=== PATIENT | female | born 1955 | race Two or more races ===

== ENCOUNTER 2024-09-30 21:23 | Emergency (ER) | payer MEDICARE, SELFPAY ==
--- NOTE | 2024-09-30 21:32 | PD.EDABDPN ---
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 Staff asked patient if she had abdominal pain and patient blinked her eyes to signify yes . Patient was intubated due to stroke. The first stroke caused left-sided paralysis and the second stroke caused paralysis to the rest of the body. Ibuprofen was given at 7 PM. No other concerns or complaints expressed at this time. Related Data Previous Rx's ?Medication ?Instructions ?Recorded ciprofloxacin HCl 500 mg tablet 500 mg feeding tube BID #20 tabs 10/01/24 (Cipro) metronidazole 500 mg tablet 500 mg feeding tube TID #21 tabs 10/01/24 Allergies Allergy/AdvReac Type Severity Reaction Status Date / Time codeine Allergy Mild Dizziness Verified 09/30/24 21:45 Review of Systems Review of Systems ROS Unobtainable: due to endotracheal tube Past Medical History Past Medical History NEUROLOGIC: Positive Paralysis Social History SMOKING STATUS: Never smoker HOUSING: [facility] LIVES WITH: Staff-Care Providers ED Exam Narrative Physical exam: GENERAL APPEARANCE: alert and oriented x 4, well-developed, well-nourished, no acute distress VITALS: All vitals were reviewed and the pulse ox is 99% on room air, which is normal according to my interpretation. HEENT: Normocephalic, atraumatic; pupils equal, round, reactive to light; EOMI; mucous membranes pink, moist; oropharynx clear NECK: Supple LUNGS: CTABL; no wheezes, no rales, no rhonchi HEART: Regular rate, regular rhythm; normal S1, S2; no murmurs ABDOMEN: non distended; increased active bowel sounds; soft, right abdominal tenderness and nausea, no guarding, no rebound; no masses, no organomegaly, no hernia BACK: no CVA tenderness EXTREMITIES: atraumatic; no edema NEUROLOGIC: awake; alert and oriented x4; cranial nerves II-XII grossly intact; no focal sensory or motor deficits PSYCHIATRIC: appropriate mood and affect SKIN: warm, dry, normal color; no rashes Course Course Course Narrative: CXR is ordered for determining the etiology of shortness of breath. Quality Measures none Orders Category Date Time Status CT Screening NOW Care 09/30/24 21:35 Completed Fire Boss NOW Care 09/30/24 21:34 Completed EKG (ED ONLY) *Do not use* NOW Care 09/30/24 21:34 Completed Lester [Urinary Catheter, Remove] ONCE Care 09/30/24 21:55 Completed Lester [Urinary Catheter] QS Care 09/30/24 21:56 Completed IV [Insert IV] NOW Care 09/30/24 21:[address] abdomen pelvis w con Stat Exams 09/30/24 21:35 Taken EKG (ED Only) Stat Exams 09/30/24 21:34 Ordered XR chest 1V portable Stat Exams 09/30/24 21:34 Completed B-Type Natriuretic Peptide Stat Lab 09/30/24 21:35 Completed CBC Stat Lab 09/30/24 21:35 Completed Comprehensive Metabolic Panel Stat Lab 09/30/24 21:35 Completed Lipase Stat Lab 09/30/24 21:35 Completed Magnesium Stat Lab 09/30/24 21:35 Completed Troponin I Stat Lab 09/30/24 21:35 Completed UA, C/S IF [Urinalysis, C/S if Indicated] Stat Lab 10/01/24 02:47 Completed Urine Culture Stat Lab 10/01/24 02:47 Received Morphine Inj Med 09/30/24 21:33 Discontinued 5 mg IVP X1 ONE Ondansetron Inj [Zofran Inj] Med 09/30/24 21:33 Discontinued 4 mg IVP X1 ONE Piper/Tazo 3.375 gm Premix [Zosyn] Med 10/01/24 03:11 Discontinued 3.375 gm in 50 ml IV X1 Volume Ventilator Stat RT 09/30/24 Active Vital Signs Vital signs: Vital Signs Temperature 98.7 F 09/30/24 21:34 Pulse Rate 98 09/30/24 21:34 Respiratory Rate 15 09/30/24 21:34 Blood Pressure 159/70 H 09/30/24 21:34 Pulse Oximetry (%) 98 09/30/24 21:34 Oxygen Delivery Method Mechanical Ventilation 09/30/24 21:34 Oxygen Flow Rate 400 09/30/24 21:34 Fraction of Inspired Oxygen 35 09/30/24 21:34 Abdominal Pain MDM MDM Narrative MDM Narrative:: Scribe Attestation: I, Sofie Zabala, am scribing for and in the presence of Dr. Brothers. Provider Notation: Although this document has been carefully reviewed, there may still be some phonetic and other typographical errors.? These errors are purely grammatical due to imperfections in the software program and should not be construed in any way to? compromise the substance of the patient's medical care during this visit. Patient data External records reviewed:: [facility] previous records (No prior ED records available for review.) and [facility] records Clinical information provided by:: spouse () Social determinants that could affect healthcare access:: housing (Sub-acute, Stroke) Patient has the following chronic illnesses:: Paralysis How is presenting disease/condition affected by chronic disease/condition?: exacerbated by Evaluation data The following diagnostics were reviewed and interpreted by me:: lab results, radiology exam(s) and EKG tracing(s) (EKG performed at 21:22, manual reading, my interpretation: sinus rhythm, rate: 99 bpm, diffused flattening of ST segments, no acute ischemic changes, interpreted as normal.) Lab and/or radiology exams considered but not ordered:: None Interpretation Summary: RADIOLOGY Chest X-Ray: Patient: TOMASZ LAURENT Record#: [id number] Birthdate: 1955 Age/Sex: 69 / F Location: [facility] Attending Dr: Ordering Physician: Kimber Brothers MD Date of Service: 09/30/24 Procedure(s): XR chest 1V portable Accession Number(s): [id number] cc: Jamarcus Wallace MD; Kimber Brothers MD~ Examination: AP chest single view Technique one AP portable semiupright chest single view Date and time: September 30, 2024 at 2158 hours INDICATIONS: Chest pain today. FINDINGS: Tracheostomy tube 4.3 cm above Tish Normal heart size No pneumonia Lung sutton are difficult to assess as the film is rotated RPO IMPRESSION: No pneumonia or pulmonary edema Dictated By: Jamarcus Wallace MD Signed By: <Electronically signed by Jamarcus Wallace MD in OV> 09/30/24 2224 Abdomen/Pelvis CT with Contrast: Pending official radiology report. Medications / Prescriptions Medications or Prescriptions considered but not ordered:: None Medication administrations:: Medication Administration History Discontinued Medications Piperacillin/Tazobactam/Dextrose (Zosyn) 3.375 gm in 50 mls @ 100 mls/hr IV X1 ONE Stop: 10/01/24 03:40 Last Infusion: 10/01/24 04:25 Dose: Infused Documented By: Admin: 10/01/24 03:45 Dose: 100 mls/hr Documented By: CVL Morphine Sulfate (Morphine Sulf Inj 10 Mg/Ml Vial) 5 mg IVP X1 ONE Stop: 09/30/24 21:34 Last Admin: 09/30/24 22:15 Dose: 5 mg Documented By: CVL Ondansetron HCl (Ondansetron Inj 2 Mg/Ml Inj 2 Ml) 4 mg IVP X1 ONE Stop: 09/30/24 21:34 Last Admin: 09/30/24 22:13 Dose: 4 mg Documented By: CVL See above if any Consultations Consultation(s) initiated? (list below): No Diagnosis Differential diagnosis abdominal pain: abdominal pain, acute appendicitis, constipation, diverticulitis, gastroenteritis, pancreatitis and small bowel obstruction Most likely diagnosis given after review of the tests above:: Abdominal pain, Pancolitis, Thickened endometrium Admission Indicated Admission indicated?: not indicated Explain why admission is indicated or not indicated:: Patient does not meet admission criteria. 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 Print Language: Malagasy Stand Alone Forms: Nessa Award Info., Patient Portal Info Letter
[2024-09-30 21:34] VITALS: BP 159/70; PULSE 98; RESP 15; TEMP 37.1; O2SAT 98
--- NOTE | 2024-09-30 21:35 | XR_ITS ---
Examination: CT abdomen with intravenous contrast CT pelvis with intravenous contrast 2-D coronal reconstructions 2-D sagittal reconstructions Date and time of exam:September 30, 2024, 11:46 PM INDICATIONS: Abdominal pain and distention today. CTDI: vol (mGy) 21.6 DLP: (mGycm) 1355 Technique: Multiple axial sections of the abdomen and pelvis have been obtained. 64 slice high-resolution scanner used. 3 mm axial sections have been obtained, post intravenous injection 60 cc [id number] 2-D sagittal, coronal reconstructions obtained. Low dose protocols were performed. One or more of the following dose reduction techniques were used; automated exposure control, adjustment of the mA and/or KV according to patient size, use of iterative reconstruction technique. Findings: Right lower lobe pneumonia 16 mm lesion lateral right lobe of the liver Absent gallbladder Enlarged common hepatic duct 21 mm No definite common bile duct stones No pancreatic mass No hydronephrosis Aorta is not enlarged Normal appendix No bowel obstruction Atrophic uterus with markedly thickened endometrial stripe Severe osteopenia Partially imaged at least 4 cm right breast lesion IMPRESSION: Partly imaged at least 4 cm right breast lesion, differential would include malignant neoplasm of the breast, recommend diagnostic mammography bilateral breast sonography follow-up Extrahepatic biliary tract dilatation, recommend hepatobiliary sonography follow-up Normal appendix Markedly abnormal thickened endometrial stripe, differential would include malignant neoplasm of the endometrium, recommend transvaginal transabdominal pelvic sonography follow-up 16 mm lesion lateral right lobe of the liver, recommend MRI abdomen liver follow up pre and postcontrast
[2024-09-30 21:53] LABS: Basophils % (Auto) 0 % (0-2.5); Eosinophils # (Auto) 0.1 Thou/mm3 (0.0-0.5); Eosinophils % (Auto) 1 % (0-10); Hematocrit 38.4 % (36.0-46.0); Hemoglobin 13.5 g/dL (12.0-16.0); Immature Granulocytes % (Auto) 1 % (0-0); Immature Granulocytes Auto 0.06 Thou/mm3 (0.00-0.00); Lymphocytes # (Auto) 2.6 Thou/mm3 (1.0-4.8); Lymphocytes % (Auto) 28 % (10-50); Mean Corpuscular HGB Conc 35.2 g/dl (31.0-37.0); Mean Corpuscular Volume 91 fL (80-100); Monocytes # (Auto) 0.5 Thou/mm3 (0.0-0.8); Monocytes % (Auto) 5 % (0-12); Neutrophils # (Auto) 6.1 Thou/mm3 (1.8-7.7); Neutrophils % (Auto) 65 % (37-80); Nucleated Red Blood Cell % 0 /100 WBC (0); Platelet Count 295 Thou/mm3 (140-440); RDW Standard Deviation 47.7 fL (36.4-46.3); Red Blood Count 4.22 Miln/mm3 (4.00-5.20); White Blood Count 9.3 Thou/mm3 (3.6-11.0)
[2024-09-30 21:55] VITALS: PULSE 99; RESP 22; O2SAT 100
[2024-09-30] MEDS: ONDANSETRON INJ 2 MG/ML INJ 2 ML 4 MG IVP (22:13)
[2024-09-30] MEDS: MORPHINE SULF INJ 10 MG/ML VIAL 5 MG IVP (22:15)
[2024-09-30 22:16] LABS: Alanine Aminotransferase 23 U/L (10-49); Albumin, Serum 4.4 gm/dL (3.4-4.8); Albumin/Globulin Ratio 1.8 (1.2-2.2); Alkaline Phosphatase 98 U/L (46-116); Anion Gap 8 (7-16); Aspartate Amino Transferase 24 U/L (0-34); BUN/Creatinine Ratio 30 Ratio (12-20); Bilirubin,Total 0.3 mg/dL (0.3-1.2); Blood Urea Nitrogen 18 mg/dL (9-23); Calcium 9.9 mg/dL (8.3-10.6); Calcium (Corrected) 9.9 mg/dL (8.5-10.1); Carbon Dioxide 31.6 mMol/L (20.0-31.0); Chloride 91 mMol/L (98-107); Creatinine (Component) 0.6 mg/dL (0.6-1.3); Globulin 2.4 gm/dL (2.3-3.5); Glucose 126 mg/dL (74-106); Lipase 22 U/L (12-53); Magnesium 2.2 mg/dL (1.6-2.6); Osmolality,Calculated 266 (275-295); Potassium 4.2 mMol/L (3.4-5.1); Sodium 131 mMol/L (136-145); Total Protein 6.8 gm/dL (5.7-8.2); Troponin I < 0.020 ng/mL (0.0-0.045); eGFR > 60 See Note
[2024-09-30 22:17] VITALS: BP 165/59; PULSE 94; PULSE 96; RESP 18; O2SAT 96
[2024-09-30 22:20] LABS: B-Type Natriuretic Peptide 69 pg/mL (0-100)
[2024-10-01 00:01] VITALS: BP 138/64; PULSE 90; RESP 16; O2SAT 99
--- NOTE | 2024-10-01 00:46 | PRELIM_ITS ---
CT scan of the abdomen and pelvis with intravenous contrast (axial sections with sagittal and coronal reformats) September 30, 2024 at 2346 hours Clinical History: Abdominal distension. Comparison: No prior study is available for comparison. Findings: Right lower lobe consolidation. The pancreas, spleen, kidneys and adrenals are unremarkable. Status post cholecystectomy. No biliary duct dilation. Hepatomegaly. Hypodense area in segment 4 of the liver. No evidence of bowel obstruction. The appendix is within normal limits. There is no mesenteric or retroperitoneal adenopathy. The urinary bladder is nondistended, limited evaluation, questionable thickening of the urinary bladder wall. A Lester catheter in place. There is no free fluid or free air. Degenerative changes of the imaged portions of the spine. Chronic multilevel disc disease. No acute fractures. Mild anterolisthesis of L4. Vascular calcifications. Percutaneous gastric PEG tube. Fluid stools throughout the colon associated with mild colonic wall thickening. Pessary noted in place. Endometrial thickening. Partially imaged right breast lesion measuring at least 4.5 cm. Impression: 1. Endometrial thickening suspicious for endometrial cancer. 2. Mild pancolitis. 3. Hypodense area in segment 4 of the liver, possibly focal fatty infiltration. Consider correlation with MRI to exclude neoplasm. 4. Right lower lobe consolidation suspicious for pneumonia. 5. Hepatomegaly. 6. Partially imaged right breast lesion measuring at least 4.5 cm. Further evaluation to exclude breast cancer is recommended. 7. Possible cystitis. Report Electronically Signed By: Mo Goodman 10/01/2024 12:46:18 AM [EST]
[2024-10-01 01:27] VITALS: BP 138/72; PULSE 109; RESP 19; TEMP 36.5; O2SAT 98
[2024-10-01 02:51] LABS: Collection Type, Urine Catheter
[2024-10-01 03:07] LABS: Bacteria,Urine Rare; Bilirubin,Urine Negative (Negative); Blood,Urine Negative (Negative); Clarity,Urine Clear (Clear/Hazy); Color,Urine Lt-Yellow (Lt Yel-Yel); Glucose, Urine 1+ (Negative); Ketones,Urine Negative (Negative); Leukocyte Esterase,Urine Positive (Negative); Nitrite,Urine Negative (Negative); Protein,Urine Negative (Neg - Trace); RBC,Urine 2 /hpf (0-3); Specific Gravity,Urine 1.013 (1.001-1.035); Squamous Epithelial Cell,Urine 1 /hpf (0-5); Urobilinogen,Urine Negative mg/dL (0.0-1.0); WBC,Urine 17 /hpf (0-5)
[2024-10-01 03:08] LABS: Culture Indicated,Urine Yes
[2024-10-01] MEDS: PIPER/TAZO 3.375 GM PREMIX 3.375 GM/50 ML BAG IV (03:45)
[2024-10-01 03:55] VITALS: BP 170/79; PULSE 98; RESP 19; TEMP 36.6; O2SAT 98
== END 2024-10-01 04:30 ==
PROVIDERS: Emergency Provider Emergency Medicine
DX: K52.9 Noninfective gastroenteritis and colitis, unspecified (principal); G83.5 Locked-in state; R16.0 Hepatomegaly, not elsewhere classified; N64.9 Disorder of breast, unspecified; R93.89 Abnormal findings on diagnostic imaging of other specified body structures; Z86.73 Personal history of transient ischemic attack (TIA), and cerebral infarction without residual deficits
CPT/HCPCS: 51702; 36415; 71045; 74177; 80053; 81001; 83690; 83735; 83880; 84484; 85025; 87086; 93005; 96365; 96375; 99285; A4314; A4649; J2270; J2405; J2543; Q9967

== ENCOUNTER 2024-10-11 13:22 | Emergency (ER) | payer MEDICARE, SELFPAY ==
[2024-10-11 13:45] VITALS: BMI 36.5
[2024-10-11 13:47] VITALS: BP 158/70; PULSE 84; RESP 17; TEMP 36.3; O2SAT 100
--- NOTE | 2024-10-11 13:56 | EDNOTE_ITS ---
ED Abdominal Pain RME/HPI General Chief Complaint: Abdominal Pain Stated complaint: ABDOMINAL PAIN Time seen by provider: 10/11/24 13:24 Arrival date/time: 10/11/24 13:22 Limitations: physical limitation RME / HPI RME / HPI narrative: DR. MAIER MAIN ED EVALUATION: Patient was transported to the emergency department by her request. Patient is status post CVA with left-sided paralysis and aphasia. Communicates by blinking. Is complaining of abdominal pain. Apparently, the major discomfort is in the epigastric area. Patient was recently treated for what appears to be colitis and finished the course of antibiotics, however still requires morphine twice a day to control her pain. Patient has tracheostomy and gastrostomy tubes. Patient denies any nausea or vomiting. History and physical is limited due to patient's general condition. Related Data Previous Rx's ?Medication ?Instructions ?Recorded acetaminophen 325 mg tablet 650 mg (2 x 325 mg) G-tube Q6HR 09/18/24 PRN Pain 30 days atorvastatin 40 mg tablet 40 mg G-tube HS for hyperlip idemia 09/18/24 30 days #30 tabs baclofen 10 mg tablet 10 mg G-tube Q8HR PRN for mu scle 09/18/24 spasm 30 days bisacodyl 10 mg rectal suppository 10 mg CO PRN PRN No BM Per Bowel 09/18/24 (Dulcolax (bisacodyl)) Management Protocol 365 days gabapentin 300 mg capsule 600 mg (2 x 300 mg) G-tube T ID 09/18/24 nerve pain 30 days #60 caps ibuprofen 100 mg/5 mL oral 400 mg (20 mL) G-tube Q6HR PRN 09/18/24 suspension Pain 30 days lorazepam 0.5 mg tablet 0.5 mg G-tube Q8H PRN anxiet y 365 09/18/24 days magnesium hydroxide 400 mg/5 mL 30 ml G-tube PRN PRN C onstipation 09/18/24 oral suspension (Milk of Magnesia) 365 days metformin 500 mg tablet 1,000 mg (2 x 500 mg) G-tube BID 09/18/24 for DM 30 days #120 tabs polyethylene glycol 3350 17 gram 17 g G-tube PRN PRN N o BM Per 09/18/24 oral powder packet Bowel Management Protocol 36 5 days sodium phosphates 19 gram-7 133 ml CO PRN PRN No BM Pe r Bowel 09/18/24 gram/118 mL enema (Fleet Enema) Management Protocol 36 5 days #133 mL Fish Oil 500 Mg Capsule 500 mg G-tube BID for supple ment 09/19/24 30 days aspirin 81 mg chewable tablet 81 mg G-tube QDAY 30 day s #30 tabs 09/19/24 duloxetine 30 mg capsule,delayed 30 mg G-tube QDAY fro depression 09/19/24 release 30 days #30 caps losartan 100 mg tablet 100 mg G-tube QDAY hypertens ion 30 09/19/24 days #30 tabs pantoprazole 40 mg granules 40 mg G-tube QDAY GERD 30 days 09/28/24 delayed-release for susp in packet Trulicity Pen 3mg/0.5ml 3 mg SCi WE for DM 30 days # 3 mg 10/01/24 Non Formulary Medication 15 ea G-tube BID PAIN 10 day s 10/04/24 insulin glargine-yfgn 100 unit/mL 30 unit (0.3 mL) SCi DAILY@0600 30 10/09/24 (3 mL) subcutaneous pen days #15 mL aluminum-mag hydroxide-simethicone 30 ml G-tube QID CO N ABDOMINAL 10/10/24 200 mg-200 mg-20 mg/5 mL oral susp CRAMPING 30 days (Deidra-Lanta) insulin glargine-yfgn 100 unit/mL 20 unit (0.2 mL) SCi DAILY@1800 10/11/24 (3 mL) subcutaneous pen diabetes 30 days #6 mL Allergies Allergy/AdvReac Type Severity Reaction Status Date / Time codeine Allergy Verified 10/01/24 06:20 Review of Systems Review of Systems Systems Reviewed: All systems reviewed, normal except as documented Past Medical History Past Medical History NEUROLOGIC: Positive Cerebrovascular Accident and Paralysis CARDIAC: Positive Cardiac Disorders and Myocardial Infarction ENDOCRINE: Positive Endocrine Disorders and Diabetes Mellitus Type 2 PSYCHO/SOCIAL: Positive Depression Family History FAMILY HISTORY: Positive Family Respiratory Disorders (chronic respiratory failure) Social History SMOKING STATUS: Never smoker SECOND HAND EXPOSURE: No SUBSTANCE USE: does not use ALCOHOL: Never ED Exam General Limitations: Present physical limitation General appearance: Present alert and in no apparent distress Eye Eye exam: Present normal appearance Neck Neck exam: Present other (Tracheostomy in place without any evidence of infectious process with exertion.) Chest Chest inspection: Present symmetric chest wall rise Respiratory Respiratory exam: Present normal lung sounds bilaterally Cardiovascular Cardiovascular exam: Present regular rate and normal heart sounds Abdominal Exam Abdominal exam: Present soft, tenderness (Mild epigastric) and normal bowel sounds Neurological Exam Neurological exam: Present alert Skin Skin exam: Present rash Course Quality Measures none Orders Category Date Time Status EKG (ED ONLY) *Do not use* NOW Care 10/11/24 14:02 Completed Insert IV STAT Care 10/11/24 14:[address] abdomen pelvis wo con Stat Exams 10/11/24 14:03 Completed EKG (ED Only) Stat Exams 10/11/24 14:02 Draft CBC Stat Lab 10/11/24 14:17 Completed Comprehensive Metabolic Panel Stat Lab 10/11/24 14:17 Completed Lipase Stat Lab 10/11/24 14:17 Completed Magnesium Stat Lab 10/11/24 14:17 Completed Troponin I Stat Lab 10/11/24 14:17 Completed Urinalysis Stat Lab 10/11/24 14:07 Completed Morphine Inj Med 10/11/24 14:02 Discontinued 5 mg IM X1 ONE Morphine Inj Med 10/11/24 14:21 Discontinued 5 mg IVP X1 ONE Promethazine Inj [Phenergan Inj] Med 10/11/24 14:02 Discontinued 25 mg IM X1 ONE Vital Signs Vital signs: Vital Signs Temperature 97.4 F 10/11/24 13:47 Pulse Rate 84 10/11/24 13:47 Respiratory Rate 17 10/11/24 13:47 Blood Pressure 158/70 H 10/11/24 13:47 Pulse Oximetry (%) 100 10/11/24 13:47 Oxygen Delivery Method Mechanical Ventilation 10/11/24 13:47 Fraction of Inspired Oxygen 35 10/11/24 13:47 Abdominal Pain MDM MDM Narrative MDM Narrative:: [place] am scribing for and in the presence of Dr. Maier. Patient data External records reviewed:: [facility] previous records Clinical information provided by:: patient Social determinants that could affect healthcare access:: none Patient has the following chronic illnesses:: CVA with left-sided paralysis and aphasia, essential hypertension, and DM 2. Patient has tracheostomy and gastrostomy tubes. How is presenting disease/condition affected by chronic disease/condition?: exacerbated by Evaluation data The following diagnostics were reviewed and interpreted by me:: lab results, radiology exam(s) and EKG tracing(s) (My interpretation: EKG performed at 1435 hours, sinus rhythm, rate 80, no ST-T changes) Lab and/or radiology exams considered but not ordered:: none Interpretation Summary: Procedure(s): CT abdomen pelvis wo con Accession Number(s): [id number] cc: Zev Maier MD; Jamarcus Wallace MD; China Neville CNM~ Examination: CT abdomen and pelvis without contrast. Coronal 3-D reconstructions. Sagittal 2-D reconstructions. Date and time of exam:October 11, 2024, 1456 hrs. Comparison September 30, 2024 Indications: Generalized abdominal pain today CTDI: vol (mGy): 21.6 DLP: (mGycm): 1252 Technique: Axial images of the abdomen have been obtained, 3 mm slice thickness Intravenous contrast material has not been administered. Low dose protocols were performed. One or more of the following dose reduction techniques were used; automated exposure control, adjustment of the mA and/or KV according to patient size, use of iterative reconstruction technique. Findings: Atelectasis in the lower lung zones 5.7 cm right breast mass, please see the breast sonogram report October 04, 2024 Minimal pleural fluid No visualized liver or splenic lesion on this noncontrast study Absent gallbladder No common hepatic or common bile duct stones, common hepatic duct measures 12 mm Spleen is not enlarged. No adrenal mass No pancreatic mass No hydronephrosis Heavy abdominal aortic calcification Normal appendix No bowel obstruction No pelvic mass Urinary bladder wall thickening up to 8 mm Advanced degenerative disc disease L2-L3, L4-L5 No pericecal inflammatory change Impression: Large right breast mass, please see the right breast sonogram October 04, 2024 Common hepatic duct common bile duct 12 mm no definite stones, recommend hepatobiliary sonography follow-up No renal or ureteral calculi No CT findings of appendicitis or bowel obstruction Cystitis pattern Dictated By: Jamarcus Wallace MD Medications / Prescriptions Medications or Prescriptions considered but not ordered:: none Medication administrations:: Medication Administration History Discontinued Medications Morphine Sulfate (Morphine Sulf Inj 10 Mg/Ml Vial) 5 mg IM X1 ONE Stop: 10/11/24 14:03 Last Admin: 10/11/24 14:22 Dose: Not Given Documented By: EF Non-Admin Reason: Cancelled by Provider Morphine Sulfate (Morphine Sulf Inj 10 Mg/Ml Vial) 5 mg IVP X1 ONE Stop: 10/11/24 14:22 Last Admin: 10/11/24 14:28 Dose: 5 mg Documented By: EF Promethazine HCl (Promethazine Inj 25 Mg/Ml Vial) 25 mg IM X1 ONE; Protocol Stop: 10/11/24 14:03 Last Admin: 10/11/24 14:28 Dose: 25 mg Documented By: EF Comments: administered IM left deltoid required to put iv site see above Consultations Consultation(s) initiated? (list below): No Diagnosis Differential diagnosis abdominal pain: abdominal pain, diverticulitis, endometriosis and pancreatitis Most likely diagnosis given after review of the tests above:: Abdominal pain Gastritis Admission Indicated Admission indicated?: not indicated Admission Request Was there a request for admission?: No Disposition Plan Disposition Plan: Discharge Discharge Attestation Discharge Attestation: The patient and all family members were given an opportunity to ask questions and understood the discharge instructions. Discharge instructions specifically effects, indications for sooner follow up or return to the emergency department, and the expected course of current diagnosis. Patient condition: Stable Discharge Plan Plan Patient Disposition: Xfer Residential Acute Patient condition on transfer: Stable Prescriptions/Referrals Prescriptions/Med Rec: No Action aspirin 81 mg tablet,chewable 81 mg G-tube QDAY 30 Days Qty: 30 0RF atorvastatin 40 mg tablet 40 mg G-tube HS 30 Days Qty: 30 0RF baclofen 10 mg tablet 10 mg G-tube Q8HR PRN (Reason: for muscle spasm) 30 Days 0RF bisacodyl [Dulcolax (bisacodyl)] 10 mg suppository 10 mg CO PRN PRN (Reason: No BM Per Bowel Management Protocol) 365 Days 0RF Rx Instructions: Administer as needed on 6th shift, if MOM ineffective. polyethylene glycol 3350 17 gram powder in packet 17 g G-tube PRN PRN (Reason: No BM Per Bowel Management Protocol) 365 Days 0RF Label Comments: Administer as needed if 2nd round bowel protocol ineffective. Rx Instructions: Mix with 4oz of water before giving. Hold tube feeding for 30 minutes after administration. Notify provider if no results from Miralax. magnesium hydroxide [Milk of Magnesia] 400 mg/5 mL suspension 30 ml G-tube PRN PRN (Reason: Constipation) 365 Days 0RF Rx Instructions: CONC: 400MG/5ML Fleet Enema 19-7 gram/118 mL enema 133 ml CO PRN PRN (Reason: No BM Per Bowel Management Protocol) 365 Days Qty: 133 0RF Label Comments: If Dulcolax is ineffective on 3rd day / 7th shift, give Fleets enema per Bowel Management Protocol. Notify MD if no results from Enema. gabapentin 300 mg capsule 600 mg G-tube TID 30 Days Qty: 60 0RF acetaminophen 325 mg tablet 650 mg G-tube Q6HR PRN (Reason: Pain) 30 Days 0RF Label Comments: not to exceed 3 gm of tylenol in 24 hours from all other sources losartan 100 mg tablet 100 mg G-tube QDAY 30 Days Qty: 30 0RF Label Comments: hold if SBP <110 metformin 500 mg tablet 1,000 mg G-tube BID 30 Days Qty: 120 0RF Label Comments: BBW duloxetine 30 mg capsule,delayed release(DR/EC) 30 mg G-tube QDAY 30 Days Qty: 30 0RF Label Comments: AMB feeling lonely, sad ibuprofen 100 mg/5 mL suspension 400 mg G-tube Q6HR PRN (Reason: Pain) 30 Days 0RF Label Comments: conc: 100mg/5ml give 400 mg (20 ml) Rx Instructions: as needed if pain not relieved by tylenol lorazepam 0.5 mg tablet 0.5 mg G-tube Q8H PRN (Reason: anxiety) 365 Days 0RF Label Comments: AMB anxiousness Fish Oil 500 Mg Capsule 500 mg G-tube BID 30 Days 0RF pantoprazole [address] for susp in packet 40 mg G-tube QDAY 30 Days 0RF Trulicity Pen 3mg/0.5ml 3 mg SCi WE 30 Days Qty: 3 0RF Non Formulary Medication 15 ea G-tube BID 10 Days 0RF Label Comments: MEDICATION NOT ON FORMULARY: Morphine Sulfate 100mg/5ml DRUG NAME HERE: Morphine DIRECTIONS FOR USE HERE: Morphine Sulfate 100mg/5ml-give 15mg/0.75ml PGT BID Rx Instructions: Give 15mg/0.75ml PGT BID insulin glargine-yfgn 100 unit/mL (3 mL) insulin pen 30 unit SCi DAILY@0600 30 Days Qty: 15 3RF Label Comments: Hold if BS <80 alum-mag hydroxide-simeth [Deidra-Lanta] 200-200-20 mg/5 mL suspension 30 ml G-tube QID PRN (Reason: ABDOMINAL CRAMPING) 30 Days 0RF Label Comments: Give 30ml PGT Q6Hr. PRN insulin glargine-yfgn 100 unit/mL (3 mL) insulin pen 20 unit SCi DAILY@1800 30 Days Qty: 6 3RF Label Comments: Hold if BS <80 Rx Instructions: Hold if BS <80 Referrals: China Neville CNM [Primary Care Provider] - In 1 week Problem List Clinical Impression: Abdominal pain, Gastritis Patient/Caregiver Discharge Instructions Education Materials: ED Gastritis (Adult) Print Language: Faroese Stand Alone Forms: Nessa Award Info., Patient Portal Info Letter
--- NOTE | 2024-10-11 14:02 | EKG_ITS ---
[facility] Test Date: 2024-10-11 Pat Name: TOMASZ LAURENT Department: Room: - Gender: Female [employer]: : 1955 Requested By: Zev Maier Order Number: [id number] Reading MD: Zev Maier Measurements Intervals [place] Rate: 80 P: 30 MS: 165 QRS: 25 QRSD: 106 T: 88 QT: 378 QTc: 438 Interpretive Statements SINUS RHYTHM MODERATE T-WAVE ABNORMALITY, CONSIDER ANTERIOR ISCHEMIA [-0.1+ mV T-WAVE IN V3/V4] Compared to ECG 09/18/2024 16:31:23 Possible ischemia now present T-wave abnormality still present /store/S0/[id number].pdf
--- NOTE | 2024-10-11 14:03 | XR_ITS ---
Examination: CT abdomen and pelvis without contrast. Coronal 3-D reconstructions. Sagittal 2-D reconstructions. Date and time of exam:October 11, 2024, 1456 hrs. Comparison September 30, 2024 Indications: Generalized abdominal pain today CTDI: vol (mGy): 21.6 DLP: (mGycm): 1252 Technique: Axial images of the abdomen have been obtained, 3 mm slice thickness Intravenous contrast material has not been administered. Low dose protocols were performed. One or more of the following dose reduction techniques were used; automated exposure control, adjustment of the mA and/or KV according to patient size, use of iterative reconstruction technique. Findings: Atelectasis in the lower lung zones 5.7 cm right breast mass, please see the breast sonogram report October 04, 2024 Minimal pleural fluid No visualized liver or splenic lesion on this noncontrast study Absent gallbladder No common hepatic or common bile duct stones, common hepatic duct measures 12 mm Spleen is not enlarged. No adrenal mass No pancreatic mass No hydronephrosis Heavy abdominal aortic calcification Normal appendix No bowel obstruction No pelvic mass Urinary bladder wall thickening up to 8 mm Advanced degenerative disc disease L2-L3, L4-L5 No pericecal inflammatory change Impression: Large right breast mass, please see the right breast sonogram October 04, 2024 Common hepatic duct common bile duct 12 mm no definite stones, recommend hepatobiliary sonography follow-up No renal or ureteral calculi No CT findings of appendicitis or bowel obstruction Cystitis pattern
[2024-10-11 14:27] LABS: Collection Type, Urine Catheter; RBC,Urine 0 /hpf (0-3)
[2024-10-11] MEDS: PROMETHAZINE INJ 25 MG/ML VIAL IM (14:28)
[2024-10-11] MEDS: MORPHINE SULF INJ 10 MG/ML VIAL 5 MG IVP (14:28)
[2024-10-11 14:37] LABS: Basophils # (Auto) 0.0 Thou/mm3 (0.0-0.2); Basophils % (Auto) 0 % (0-2.5); Eosinophils # (Auto) 0.2 Thou/mm3 (0.0-0.5); Eosinophils % (Auto) 2 % (0-10); Hematocrit 33.6 % (36.0-46.0); Hemoglobin 11.2 g/dL (12.0-16.0); Immature Granulocytes Auto 0.03 Thou/mm3 (0.00-0.00); Lymphocytes # (Auto) 2.5 Thou/mm3 (1.0-4.8); Lymphocytes % (Auto) 26 % (10-50); Mean Corpuscular HGB Conc 33.3 g/dl (31.0-37.0); Mean Corpuscular Hemoglobin 32.4 pg (25.0-35.0); Mean Corpuscular Volume 97 fL (80-100); Monocytes # (Auto) 0.5 Thou/mm3 (0.0-0.8); Monocytes % (Auto) 5 % (0-12); Neutrophils # (Auto) 6.5 Thou/mm3 (1.8-7.7); Neutrophils % (Auto) 67 % (37-80); Nucleated Red Blood Cell # 0.00 Thou/mm3 (0.00-0.00); Nucleated Red Blood Cell % 0 /100 WBC (0); Platelet Count 239 Thou/mm3 (140-440); RDW Standard Deviation 50.8 fL (36.4-46.3); Red Blood Count 3.46 Miln/mm3 (4.00-5.20); White Blood Count 9.7 Thou/mm3 (3.6-11.0)
[2024-10-11 14:47] LABS: Bacteria,Urine Rare; Bilirubin,Urine Negative (Negative); Blood,Urine Negative (Negative); Budding Yeast,Urine Present; Clarity,Urine Turbid (Clear/Hazy); Color,Urine Yellow (Lt Yel-Yel); Glucose, Urine Negative (Negative); Hyaline Casts,Urine < 1 /hpf (0-1); Ketones,Urine Negative (Negative); Leukocyte Esterase,Urine Positive (Negative); Nitrite,Urine Negative (Negative); PH,Urine 6.5 (5.0-7.0); Protein,Urine 1+ (Neg - Trace); Specific Gravity,Urine 1.025 (1.001-1.035); Squamous Epithelial Cell,Urine 1 /hpf (0-5); Urobilinogen,Urine Negative mg/dL (0.0-1.0); WBC,Urine 26 /hpf (0-5)
[2024-10-11 14:55] LABS: Alanine Aminotransferase 44 U/L (10-49); Albumin, Serum 3.9 gm/dL (3.4-4.8); Albumin/Globulin Ratio 1.6 (1.2-2.2); Alkaline Phosphatase 62 U/L (46-116); Anion Gap 11 (7-16); Aspartate Amino Transferase 38 U/L (0-34); BUN/Creatinine Ratio 30 Ratio (12-20); Bilirubin,Total 0.3 mg/dL (0.3-1.2); Blood Urea Nitrogen 15 mg/dL (9-23); Calcium 9.2 mg/dL (8.3-10.6); Calcium (Corrected) 9.3 mg/dL (8.5-10.1); Carbon Dioxide 32.2 mMol/L (20.0-31.0); Chloride 96 mMol/L (98-107); Creatinine (Component) 0.5 mg/dL (0.6-1.3); Estimated Creatinine Clearance 115.4 mL/min (>60); Globulin 2.5 gm/dL (2.3-3.5); Glucose 96 mg/dL (74-106); Lipase 21 U/L (12-53); Magnesium 1.7 mg/dL (1.6-2.6); Osmolality,Calculated 278 (275-295); Potassium 4.1 mMol/L (3.4-5.1); Sodium 139 mMol/L (136-145); Total Protein 6.4 gm/dL (5.7-8.2); Troponin I < 0.020 ng/mL (0.0-0.045); eGFR > 60 See Note
[2024-10-11 15:57] VITALS: BP 145/70; PULSE 80; RESP 19; TEMP 36.7; O2SAT 100
--- NOTE | 2024-10-11 16:41 | PC.NURSE ---
report called via telephone to bekah chandler
[2024-10-13 06:25] VITALS: PULSE 72; RESP 18; O2SAT 98
[2024-10-13 06:29] VITALS: PULSE 72; RESP 18; O2SAT 98
== END 2024-10-11 16:52 ==
PROVIDERS: Emergency Provider Emergency Medicine; PCP Nurse Practitioner Women's Health
DX: K29.70 Gastritis, unspecified, without bleeding (principal); R94.31 Abnormal electrocardiogram [ECG] [EKG]; N63.0 Unspecified lump in unspecified breast; I10 Essential (primary) hypertension; I25.2 Old myocardial infarction
CPT/HCPCS: 36415; 74176; 80053; 81001; 83690; 83735; 84484; 85025; 93005; 96374; 96375; 99284; J2270; J2550

== ENCOUNTER → 2024-10-17 | Outpatient (CLI) | payer MEDICARE, SELFPAY ==
--- NOTE | 2024-10-17 13:30 | XR_ITS ---
Examination: CT brain head without contrast. 2-D sagittal coronal reconstructions Date and time of exam:October 17, 2024 1445 hours INDICATIONS: Diagnosis acute cerebral infarction left basal ganglia CTDI: vol (mGy):57.5 DLP: (mGycm):1232 Technique: Multiple CT axial sections of the brain have been obtained, 5 mm slice thickness. Contrast has not been administered. 2-D sagittal, coronal reconstructions have been obtained Low dose protocols were performed. One or more of the following dose reduction techniques were used; automated exposure control, adjustment of the mA and/or KV according to patient size, use of iterative reconstruction technique. Findings: No significant ventricular enlargement. 19 mm acute appearing infarct left basal ganglia Intra-axial or extra-axial hemorrhage density is not seen. No mass effect or midline shift Basal cisterns are not remarkable. Fourth ventricle is midline. Cranial vault intact. Impression: Negative for acute hemorrhage, mass effect or midline shift 19 mm acute appearing infarct left basal ganglia
== END | disposition home or self-care (01) ==
LOC: SCAT 10-23 07:41
PROVIDERS: PCP Psychiatry & Neurology Neurology; Referring Provider Psychiatry & Neurology Neurology; Visit Provider Psychiatry & Neurology Neurology
DX: I63.9 Cerebral infarction, unspecified (principal)
CPT/HCPCS: 70450

== ENCOUNTER 2024-11-10 15:12 | Inpatient (IN) | payer MEDICARE, SELFPAY ==
[2024-11-10] VITALS (46 sets, daily range): BP systolic 76–144; BP diastolic 45–78; PULSE 80–111; RESP 5–94; TEMP 36.8–37.9; O2SAT 93–100; BMI 34.6
--- NOTE | 2024-11-10 15:19 | EKG_ITS ---
[facility] Test Date: 2024-11-10 Pat Name: TOMASZ LAURENT Department: Room: - Gender: Female [employer]: : 1955 Requested By: Espinoza Teran Order Number: [id number] Reading MD: Espinoza Teran Measurements Intervals [place] Rate: 101 P: 31 [place]: 148 QRS: 37 QRSD: 101 T: 63 QT: 365 QTc: 473 Interpretive Statements SINUS TACHYCARDIA ABNORMAL RHYTHM ECG Compared to ECG 10/11/2024 14:35:14 Sinus rhythm no longer present T-wave abnormality no longer present Possible ischemia no longer present /store/S0/[id number]
--- NOTE | 2024-11-10 15:26 | EDNOTE_ITS ---
<Statement entered by Kimber Brothers MD - 11/11/24 08:11> I, Kimber Brothers MD, have reviewed the history, exam, and assessment of the patient. I have evaluated the patient independently and agree with the plan of care documented by [ ]. All diagnostic studies were reviewed and discussed. I confirm the diagnosis as documented by the Resident. I was present during the Medical Decision Making for this patient. The patient's plan of care was created between myself and the Resident and consistent with our discussion of the patient's case. 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 On arrival I assessed the patient and patient did meet criteria for SIRS and sepsis therefore sepsis protocol was done. Patient does complain of some abdominal pain as well. Otherwise no other complaints or concerns. Related Data Previous Rx's ?Medication ?Instructions ?Recorded bisacodyl 10 mg rectal suppository 10 mg TX PRN PRN No BM Per Bowel 09/18/24 (Dulcolax (bisacodyl)) Management Protocol 365 days lorazepam 0.5 mg tablet 0.5 mg G-tube Q8H PRN anxiet y 365 09/18/24 days magnesium hydroxide 400 mg/5 mL 30 ml G-tube PRN PRN C onstipation 09/18/24 oral suspension (Milk of Magnesia) 365 days polyethylene glycol 3350 17 gram 17 g G-tube PRN PRN N o BM Per 09/18/24 oral powder packet Bowel Management Protocol 36 5 days sodium phosphates 19 gram-7 133 ml TX PRN PRN No BM Pe r Bowel 09/18/24 gram/118 mL enema (Fleet Enema) Management Protocol 36 5 days #133 mL Fish Oil 500 Mg Capsule 500 mg G-tube BID for supple ment 10/18/24 30 days acetaminophen 325 mg tablet 650 mg (2 x 325 mg) G-tube Q6HR 10/18/24 PRN Pain 1-6 (Mild-Mod 30 days aluminum-mag hydroxide-simethicone 30 ml G-tube QID TX N Upset 10/18/24 200 mg-200 mg-20 mg/5 mL oral susp Stomach/Indigestion 49 days (Deidra-Lanta) aspirin 81 mg chewable tablet 81 mg G-tube QDAY 30 day s #79 tabs 10/18/24 atorvastatin 40 mg tablet 40 mg G-tube HS for hyperlip idemia 10/18/24 30 days #80 tabs duloxetine 30 mg capsule,delayed 30 mg G-tube QDAY fro depression 10/18/24 release 30 days #79 caps gabapentin 300 mg capsule 600 mg (2 x 300 mg) G-tube T ID 10/18/24 nerve pain 30 days #734 caps insulin glargine-yfgn 100 unit/mL 10 unit (0.1 mL) SCi DAILY@1800 10/18/24 (3 mL) subcutaneous pen diabetes 30 days #3 mL losartan 100 mg tablet 100 mg G-tube QDAY hypertens ion 30 10/18/24 days #79 tabs metformin 500 mg tablet 1,000 mg (2 x 500 mg) G-tube BID 10/18/24 for DM 30 days #160 tabs simethicone 80 mg chewable tablet 80 mg G-tube Q6HR TX N Gas 47 days 10/21/24 pantoprazole 40 mg granules 40 mg G-tube QDAY GERD 14 days 10/28/24 delayed-release for susp in packet Non Formulary Medication 15 ea G-tube BID PAIN 14 day s #30 11/04/24 mL dulaglutide 3 mg/0.5 mL 3 mg (0.5 mL) SCi WE Diabete s 30 11/05/24 subcutaneous pen injector days #2.5 mL (Trulicity) insulin glargine-yfgn 100 unit/mL 10 unit (0.1 mL) SCi DAILY@0600 30 11/05/24 (3 mL) subcutaneous pen days #3 mL acetaminophen 325 mg tablet 650 mg (2 x 325 mg) G-tube Q4HR 11/10/24 PRN Fever > 100.4 7 days #30 tabs Allergies Allergy/AdvReac Type Severity Reaction Status Date / Time codeine Allergy Verified 10/01/24 06:20 Review of Systems Review of Systems ROS Unobtainable: unobtainable due to medical condition Past Medical History Past Medical History NEUROLOGIC: Positive Cerebrovascular Accident and Paralysis CARDIAC: Positive Cardiac Disorders and Myocardial Infarction ENDOCRINE: Positive Endocrine Disorders and Diabetes Mellitus Type 2 PSYCHO/SOCIAL: Positive Depression Family History FAMILY HISTORY: Positive Family Respiratory Disorders (chronic respiratory failure) Social History SMOKING STATUS: Never smoker SECOND HAND EXPOSURE: No SUBSTANCE USE: does not use ALCOHOL: Never ED Exam Narrative Physical exam: Gen: unable to assess given medical condition, NAD HEENT: NCAT, EOMI, Pupils reactive LEA, not icteric. External ears normal. No rhinorrhea. Moist mucous membranes. Able to trace with eyes. Neck: tracheostomy, Supple, full range of motion, no observable masses, No meningeal sign. Lungs: No Respiratory distress, crackles. CV: tachycardic, no murmurs. Abdomen: Soft, nondistended, No rebound tenderness. MSK: No joint swelling, no redness, peripheral pulses presents, no peripheral edema, locked in syndrome. : Lester in place, not erythema or drainage Skin: No rashes, petechiae, lesions. visible sweat in chest Neuro: limited do to patient's condition. Course Quality Measures none Orders Category Date Time Status Instrument/Control Technician STAT Care 11/10/24 15:19 Active Continuous Pulse Oximetry STAT Care 11/10/24 15:19 Completed EKG (ED ONLY) *Do not use* NOW Care 11/10/24 15:19 Completed In and Out Catheter X1PRN Care 11/10/24 15:19 Completed Insert IV NOW Care 11/10/24 15:19 Active NPO STAT Care 11/10/24 15:19 Active Strict Intake and Output Routine Care 11/10/24 15:[address] abdomen pelvis wo con Stat Exams 11/10/24 15:26 Ordered CXRP [XR chest 1V portable] Stat Exams 11/10/24 16:43 Completed EKG (ED Only) Stat Exams 11/10/24 15:19 Draft B-Type Natriuretic Peptide Stat Lab 11/10/24 16:20 Completed Blood Culture (Lab) Stat Lab 11/10/24 16:20 Received CBC Stat Lab 11/10/24 16:20 Completed Comprehensive Metabolic Panel Stat Lab 11/10/24 16:20 Completed LDH (Lactate Dehydrogenase) Stat Lab 11/10/24 16:20 Completed Lactate (Lactic Acid) Stat Lab 11/10/24 16:20 Results Lactic Acid [Lactate (Lactic Acid)] Q2H Lab 11/10/24 19:00 Ordered Lactic Acid [Lactate (Lactic Acid)] Q2H Lab 11/10/24 21:00 Ordered Lactic Acid [Lactate (Lactic Acid)] Q2H Lab 11/10/24 23:00 Ordered Lipase Stat Lab 11/10/24 16:20 Completed Magnesium Stat Lab 11/10/24 16:20 Completed Partial Thromboplastin Time Stat Lab 11/10/24 16:20 Completed Phosphorous Stat Lab 11/10/24 16:20 Completed Procalcitonin Stat Lab 11/10/24 16:20 Completed Prothrombin Time with INR Stat Lab 11/10/24 16:20 Completed Troponin I Stat Lab 11/10/24 16:20 Completed Urinalysis Stat Lab 11/10/24 15:33 Completed Urine Culture Stat Lab 11/10/24 15:33 Received Acetaminophen Ivpb [Ofirmev Inj] Med 11/10/24 15:24 Discontinued 1,000 mg in 100 ml IV X1 Magnesium Sulfate 4 GM Ivpb [Magnesium Sulfate Ivpb] Med 11/10/24 17:42 Active 4 gm in 50 ml IV X1 Ondansetron Inj [Zofran Inj] Med 11/10/24 15:19 Active 4 mg IVP Q6HR PRN Pharmacy Renal Dose Adjustment Med 11/10/24 15:19 Active 1 each XX PRN PRN Piper/Tazo 3.375 gm Premix [Zosyn] Med 11/10/24 15:19 Discontinued 3.375 gm in 50 ml IV X1 Ringers Lactated 1000 ml [Lactated Ringers] 1,000 ml Med 11/10/24 15:25 Discontinued IV 999 mls/hr Ringers Lactated 1000 ml [Lactated Ringers] 1,000 ml Med 11/10/24 15:42 Discontinued IV 999 mls/hr Ringers Lactated 1000 ml [Lactated Ringers] 1,000 ml Med 11/10/24 17:40 Active IV 999 mls/hr Vancomycin Inj 1,500 mg Med 11/10/24 15:45 Active Sodium Chloride 0.9% 500 ml [Ns] 500 ml IV X1 Vancomycin Pharmacy to Dose Med 11/10/24 15:30 Discontinued 1 each IV QDAY PRN Vancomycin Pharmacy to Dose Med 11/10/24 15:27 Discontinued 1 each IV X1 ONE Oxygen Delivery NOW RT 11/10/24 15:19 Active Vital Signs Vital signs: Vital Signs Temperature 98.2 F 11/10/24 15:19 Pulse Rate 111 H 11/10/24 15:19 Respiratory Rate 24 H 11/10/24 15:19 Blood Pressure 136/65 H 11/10/24 15:19 Pulse Oximetry (%) 96 11/10/24 15:19 Oxygen Delivery Method Trach Collar 11/10/24 15:19 Discharge Plan Prescriptions/Referrals Prescriptions/Med Rec: No Action bisacodyl [Dulcolax (bisacodyl)] 10 mg suppository 10 mg TX PRN PRN (Reason: No BM Per Bowel Management Protocol) 365 Days 0RF Rx Instructions: Administer as needed on 6th shift, if MOM ineffective. polyethylene glycol 3350 17 gram powder in packet 17 g G-tube PRN PRN (Reason: No BM Per Bowel Management Protocol) 365 Days 0RF Label Comments: Administer as needed if 2nd round bowel protocol ineffective. Rx Instructions: Mix with 4oz of water before giving. Hold tube feeding for 30 minutes after administration. Notify provider if no results from Miralax. magnesium hydroxide [Milk of Magnesia] 400 mg/5 mL suspension 30 ml G-tube PRN PRN (Reason: Constipation) 365 Days 0RF Rx Instructions: CONC: 400MG/5ML Fleet Enema 19-7 gram/118 mL enema 133 ml TX PRN PRN (Reason: No BM Per Bowel Management Protocol) 365 Days Qty: 133 0RF Label Comments: If Dulcolax is ineffective on 3rd day / 7th shift, give Fleets enema per Bowel Management Protocol. Notify MD if no results from Enema. lorazepam 0.5 mg tablet 0.5 mg G-tube Q8H PRN (Reason: anxiety) 365 Days 0RF Label Comments: AMB anxiousness insulin glargine-yfgn 100 unit/mL (3 mL) insulin pen 10 unit SCi DAILY@1800 30 Days Qty: 3 11RF Label Comments: Hold if BS <80 Rx Instructions: Hold if BS <80 acetaminophen 325 mg tablet 650 mg G-tube Q6HR PRN (Reason: Pain 1-6 (Mild-Mod) 30 Days 0RF Label Comments: Give 2 tabs of 325mg PGT Q6HR PRN. Do not exceed 3gm from all sources. atorvastatin 40 mg tablet 40 mg G-tube HS 79 Days Qty: 80 0RF aspirin 81 mg tablet,chewable 81 mg G-tube QDAY 79 Days Qty: 79 0RF duloxetine 30 mg capsule,delayed release(DR/EC) 30 mg G-tube QDAY 78 Days Qty: 79 0RF Label Comments: AMB feeling lonely, sad losartan 100 mg tablet 100 mg G-tube QDAY 78 Days Qty: 79 0RF Label Comments: hold if SBP <110 metformin 500 mg tablet 1,000 mg G-tube BID 79 Days Qty: 160 0RF Label Comments: BBW alum-mag hydroxide-simeth [Deidra-Lanta] 200-200-20 mg/5 mL suspension 30 ml G-tube QID PRN (Reason: Upset Stomach/Indigestion) 49 Days 0RF gabapentin 300 mg capsule 600 mg G-tube TID 366 Days Qty: 734 0RF Fish Oil 500 Mg Capsule 500 mg G-tube BID 395 Days 0RF simethicone 80 mg tablet,chewable 80 mg G-tube Q6HR PRN (Reason: Gas) 47 Days 0RF pantoprazole [address] for susp in packet 40 mg G-tube QDAY 14 Days 0RF Trulicity 3 mg/0.5 mL pen injector 3 mg SCi WE 30 Days Qty: 2.5 12RF Label Comments: subcutaneously every Sunday at 1400 Non Formulary Medication 15 ea G-tube BID Qty: 30 0RF Label Comments: MEDICATION NOT ON FORMULARY: Morphine Sulfate 100mg/5ml (concentration) DRUG NAME HERE: Morphine Sulfate DIRECTIONS FOR USE HERE: Morphine Sulfate 15mg/0.75ml Rx Instructions: Give 15mg/0.75ml insulin glargine-yfgn 100 unit/mL (3 mL) insulin pen 10 unit SCi DAILY@0600 30 Days Qty: 3 11RF Label Comments: Hold if BS <80 acetaminophen 325 mg tablet 650 mg G-tube Q4HR PRN (Reason: Fever > 100.4) 7 Days Qty: 30 0RF Label Comments: Do not exceed 3gm of Tylenol from all sources. in 24 hours. Rx Instructions: Give 2 tabs of 325mg (650mg) every 4 hours PRN for fever. x7 days re-eval Referrals: No Primary/Family,Physician [Primary Care Provider] - In 1 week Problem List Clinical Impression: Complicated urinary tract infection, Pneumonia Patient/Caregiver Discharge Instructions Print Language: Turkish MDM Narrative MDM hospital course: 15:10: Patient was greeted and assessed by myself. At this time patient did not have abdominal pain on the right upper quadrant and was visibly diaphoretic. 15:16: Sepsis alert was called 15:19 sepsis protocol was ordered including diagnostic labs and imaging. At this time vancomycin and Zosyn was also ordered. Only 2 L of IV fluids were given given that patient did have some crackles on auscultation as well as UE swelling R>L and on bedside echo IVC was not fully compressible. 15:24: Tylenol 1000 mg IV x 1 was ordered. 17:10: Patient reassessed. BP stable and HR is improving as well as fever. Patient's at bedside and stated that around 3 days ago patient did not seem comfortable and he taught maybe this was the reason. 17: 30: BP dropping in the 100s over 50s. Ordered 4gm Mg and 1L of LR. Will reevaluate. 17:58: Care signed off to Dr. Crawford, [facility] ER physician. Case disclosed with Attending Dr. Deneen Teran PGY2 Disclaimer: Even though this this note was dictated by speech recognition and even though it was carefully revised there may still be minor errors in transcription typist due to voice recognition software. Medication Administration(s) Medication Administration History Vancomycin HCl 1,500 mg/ (Sodium Chloride) 500 mls @ 200 mls/hr IV X1 ONE Stop: 11/10/24 18:14 Lactated Ringer's (Lactated Ringers) 1,000 mls @ 999 mls/hr IV .Q1H1M ONE Stop: 11/10/24 18:40 Last Admin: 11/10/24 17:48 Dose: 999 mls/hr Documented By: JOSEPH Magnesium Sulfate (Magnesium Sulfate Ivpb) 4 gm in 50 mls @ 12.5 mls/hr IV X1 ONE Stop: 11/10/24 21:41 Ondansetron HCl (Ondansetron Inj 2 Mg/Ml Inj 2 Ml) 4 mg IVP Q6HR PRN PRN Reason: NAUSEA OR VOMITING Stop: 12/10/24 15:18 Last Admin: 11/10/24 16:29 Dose: 4 mg Documented By: JOSEPH Pharmacy Consult (Pharmacy Renal Dose Adjustment 1 Ea) 1 each XX PRN PRN PRN Reason: CONSULT Stop: 12/10/24 15:18 Discontinued Medications Piperacillin/Tazobactam/Dextrose (Zosyn) 3.375 gm in 50 mls @ 100 mls/hr IV X1 ONE Stop: 11/10/24 15:48 Last Infusion: 11/10/24 17:02 Dose: Infused Documented By: Admin: 11/10/24 16:30 Dose: 100 mls/hr Documented By: JOSEPH Acetaminophen (Ofirmev Inj) 1,000 mg in 100 mls @ 250 mls/hr IV X1 ONE Stop: 11/10/24 15:47 Last Infusion: 11/10/24 16:59 Dose: Infused Documented By: Admin: 11/10/24 16:26 Dose: 250 mls/hr Documented By: JOSEPH Lactated Ringer's (Lactated Ringers) 1,000 mls @ 999 mls/hr IV .Q1H1M ONE Stop: 11/10/24 16:25 Last Admin: 11/10/24 16:26 Dose: 999 mls/hr Documented By: JOSEPH Lactated Ringer's (Lactated Ringers) 1,000 mls @ 999 mls/hr IV .Q1H1M ONE Stop: 11/10/24 16:42 Last Admin: 11/10/24 16:26 Dose: 999 mls/hr Documented By: JOSEPH Pharmacy Consult (Vancomycin Pharmacy To Dose 1 Each Each) 1 each IV QDAY PRN PRN Reason: PROTOCOL Stop: 12/10/24 15:29 Pharmacy Consult (Vancomycin Pharmacy To Dose 1 Each Each) 1 each IV X1 ONE Stop: 11/10/24 15:28
--- NOTE | 2024-11-10 15:26 | XR_ITS ---
Examination: CT abdomen and pelvis without contrast. Coronal 3-D reconstructions. Sagittal 2-D reconstructions. Date and time of exam:November 10, 2024 1850 hours Comparison October 11, 2024 INDICATIONS: Sepsis today CTDI: vol (mGy): Sepsis alert DLP: (mGycm): 1220 Technique: Axial images of the abdomen have been obtained, 3 mm slice thickness Intravenous contrast material has not been administered. Low dose protocols were performed. One or more of the following dose reduction techniques were used; automated exposure control, adjustment of the mA and/or KV according to patient size, use of iterative reconstruction technique. Findings: Significant bibasilar pneumonia Exam noted large right breast mass, please see the right breast sonogram report October 04, 2024 indicating BI-RADS 4 suspicious mass 10:00 position right breast No focal liver or splenic lesions Absent gallbladder Suspicious for mild edema about the pancreas No renal or ureteral calculi, no hydronephrosis Abdominal aortic calcification no aneurysmal dilatation Normal appendix No bowel obstruction No diverticulitis No uterine mass Vaginal pessary Contracted urinary bladder Advanced degenerative disc disease L2-L3, L4-L5 IMPRESSION: Significant bibasilar pneumonia Large right breast mass Suspicious for mild pancreatitis, clinical correlation advised Normal appendix
[2024-11-10 15:43] LABS: Collection Type, Urine Clean Catch
--- NOTE | 2024-11-10 15:53 | PC.NURSE ---
PT HAD LOOSE BM, BROWN IN COLOR. PT GIVEN PERINEAL CARE WITH WARM BATH CLOTHS. NEW CHUCKS PLACED UNDER PT WELL. PT PLACED IN NEW CLEAN BRIEFS.
[2024-11-10 16:20] LABS: Bacteria,Urine 4+; Bilirubin,Urine Negative (Negative); Blood,Urine 3+ (Negative); Clarity,Urine Turbid (Clear/Hazy); Color,Urine Yellow (Lt Yel-Yel); Glucose, Urine Negative (Negative); Hyaline Casts,Urine < 1 /hpf (0-1); Ketones,Urine Trace (Negative); Leukocyte Esterase,Urine Positive (Negative); Nitrite,Urine Negative (Negative); PH,Urine 6.0 (5.0-7.0); Protein,Urine 2+ (Neg - Trace); RBC,Urine 129 /hpf (0-3); Specific Gravity,Urine 1.033 (1.001-1.035); Squamous Epithelial Cell,Urine 1 /hpf (0-5); Urobilinogen,Urine 3.0 mg/dL (0.0-1.0); WBC,Urine 99 /hpf (0-5)
[2024-11-10] MEDS: ACETAMINOPHEN IVPB 1,000 MG/100 ML VIAL 250 MG IV (16:26)
[2024-11-10] MEDS: RINGERS LACTATED 1000 ML 1,000 ML 999 ML IV ×3 (16:26→17:48)
[2024-11-10] MEDS: ONDANSETRON INJ 2 MG/ML INJ 2 ML 4 MG IVP (16:29)
[2024-11-10] MEDS: PIPER/TAZO 3.375 GM PREMIX 3.375 GM/50 ML BAG IV (16:30)
--- NOTE | 2024-11-10 16:43 | XR_ITS ---
Examination: AP chest single view TECHNIQUE: AP portable sitting chest single view Date and time: 2024 1641 hours Comparison September 30, 2024 INDICATIONS: Sepsis alert today. FINDINGS: Significant pneumonia left base. Normal heart size Mild elevation right hemidiaphragm. Tracheostomy tube tip 8.2 cm above ever IMPRESSION: Significant pneumonia left base
[2024-11-10 16:44] LABS: Lactate (Lactic Acid) 3.4 mMol/L (0.4-2.0)
[2024-11-10 16:52] LABS: Basophils # (Auto) 0.0 Thou/mm3 (0.0-0.2); Basophils % (Auto) 0 % (0-2.5); Eosinophils # (Auto) 0.0 Thou/mm3 (0.0-0.5); Eosinophils % (Auto) 0 % (0-10); Hematocrit 37.3 % (36.0-46.0); Hemoglobin 12.3 g/dL (12.0-16.0); Immature Granulocytes Auto 0.03 Thou/mm3 (0.00-0.00); Lymphocytes # (Auto) 1.8 Thou/mm3 (1.0-4.8); Lymphocytes % (Auto) 18 % (10-50); Mean Corpuscular HGB Conc 33.0 g/dl (31.0-37.0); Mean Corpuscular Hemoglobin 31.7 pg (25.0-35.0); Mean Corpuscular Volume 96 fL (80-100); Monocytes # (Auto) 0.3 Thou/mm3 (0.0-0.8); Monocytes % (Auto) 3 % (0-12); Neutrophils # (Auto) 8.0 Thou/mm3 (1.8-7.7); Neutrophils % (Auto) 79 % (37-80); Nucleated Red Blood Cell # 0.00 Thou/mm3 (0.00-0.00); Nucleated Red Blood Cell % 0 /100 WBC (0); Platelet Count 336 Thou/mm3 (140-440); RDW Standard Deviation 53.5 fL (36.4-46.3); Red Blood Count 3.88 Miln/mm3 (4.00-5.20); White Blood Count 10.1 Thou/mm3 (3.6-11.0)
[2024-11-10 17:00] LABS: INR 1.0 (0.9-1.3); Partial Thromboplastin Time 29.1 Seconds (22.0-36.0); Prothrombin Time 11.2 Seconds (9.0-12.2)
[2024-11-10 17:04] LABS: B-Type Natriuretic Peptide 353 pg/mL (0-100)
[2024-11-10 17:13] LABS: Alanine Aminotransferase 12 U/L (10-49); Albumin, Serum 4.8 gm/dL (3.4-4.8); Albumin/Globulin Ratio 1.7 (1.2-2.2); Alkaline Phosphatase 91 U/L (46-116); Anion Gap 12 (7-16); Aspartate Amino Transferase 15 U/L (0-34); BUN/Creatinine Ratio 30 Ratio (12-20); Bilirubin,Total 0.6 mg/dL (0.3-1.2); Blood Urea Nitrogen 21 mg/dL (9-23); Calcium 9.9 mg/dL (8.3-10.6); Calcium (Corrected) 9.9 mg/dL (8.5-10.1); Carbon Dioxide 28.1 mMol/L (20.0-31.0); Chloride 94 mMol/L (98-107); Creatinine (Component) 0.7 mg/dL (0.6-1.3); Estimated Creatinine Clearance 75.2 mL/min (>60); Globulin 2.8 gm/dL (2.3-3.5); Glucose 187 mg/dL (74-106); LDH (Lactate Dehydrogenase) 159 U/L (120-246); Lipase 22 U/L (12-53); Magnesium 1.5 mg/dL (1.6-2.6); Osmolality,Calculated 276 (275-295); Phosphorous 3.0 mg/dL (2.4-5.1); Potassium 4.6 mMol/L (3.4-5.1); Procalcitonin 0.55 ng/ml (0.0-0.49); Sodium 134 mMol/L (136-145); Total Protein 7.6 gm/dL (5.7-8.2); Troponin I 0.045 ng/mL (0.0-0.045); eGFR > 60 See Note
[2024-11-10] MEDS: Magnesium Sulfate 4 GM Ivpb 4 GM/50 ML BAG IV (17:59)
--- NOTE | 2024-11-10 18:12 | EDNOTE_ITS ---
Emergency Room Addendum <Emily Lazar - Last Filed: 11/10/24 19:55> Addendum Narrative: I took over the care from previous shift physician, Dr. Peralta, attending Dr. Brothers, at 6 PM on 11/10/24. See previous notes for complete H & P and ED course. I reviewed all diagnostic test results. My review of the CT abdomen pelvis report is pnemonia and right breast mass. Diagnoses include: UTI, pneumonia. Treatment here from me included Levophed. I discussed the case with our ICU service. About the presentation and exam and diagnostics and treatments here. And need of further care in the hospital. Will accept the patient. Piero Crawford MD <Pieor Crawford MD - Last Filed: 11/11/24 01:14> Addendum Narrative: I took over the care from previous shift physician, Dr. Peralta (attending Dr. Daylin perez) at 6 PM on 11/10/24. See previous notes for complete H & P and ED course. I reviewed all diagnostic test results. Diagnoses include: UTI, Pneumonia, and Septic Shock. I discussed the case with our ICU service. About the presentation and exam and diagnostics and treatments here. And need of further care in the hospital. Will accept the patient. Piero Crawford MD
[2024-11-10 19:25] LABS: Lactate (Lactic Acid) 2.7 mMol/L (0.4-2.0)
[2024-11-10 19:40] LABS: Reflex Lactate? Y
[2024-11-10] MEDS: Norepinephrine/NS 16mg/250ml 16 MG/250 ML BAG 3.997 MG IV (19:46)
[2024-11-10] MEDS: Vancomycin Inj 1,500 MG in SODIUM CHLORIDE 0.9% 500 ML 500 ML 200 MG IV (19:55)
--- NOTE | 2024-11-10 20:32 | ESHP_ITS ---
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 She denied any headache, chest pain, abdominal pain, and further history was unable to be obtained, given her nonverbal status. Initially in the ED her vitals were significant for BP 136/65, pulse 111, RR 24, and her temperature 98.2, but her previous day temperature at [facility] was trending up to 102.7. The patient is on trach collar, saturating 96% on 30% FiO2. Labs revealed white count 10.1, hemoglobin 12.3, platelet 336, coagulation panel WNL, sodium 134, potassium 4.6, bicarb 28.1, BUN 21, creatinine 0.7, lactic acid 3.2 that trended down to 2.7, magnesium 1.5, BNP 353, Pro-Andrea 0.55, lipase 22, UA revealed turbid urine, protein 2+, blood 3+, leukocyte esterase positive, RBC 129, WBC 99, bacteria 4+, EKG revealed sinus tachycardia with QTc 473. Chest x-ray was significant for left lower lobe pneumonia, abdomen/pelvis CT revealed significant bibasilar pneumonia, large right breast mass, suspicious for mild pericarditis, normal appendix. The patient received 3 L of IV bolus fluid, Zosyn 3.375 g IV x 1, vancomycin 1.5 g IV x 1, and later on her map was less than 65, and was started on Levophed. Patient also received 1 g acetaminophen IV x 1, magnesium sulfate 4 g IV x 1, and was admitted to ICU for further management of septic shock secondary to UTI. Home medications: Aspirin 81 Mg daily, atorvastatin 40 Mg daily at night, gabapentin 600 Mg 3 times daily for nerve pain, insulin glargine 10 units daily at night, lorazepam 0.5 Mg 3 times daily as needed for anxiety, duloxetine 30 Mg daily for depression, further medications to be reconciled Allergies: Codeine Review of Systems Review of Systems ROS Unobtainable: unobtainable due to medical condition Past Medical History Past Medical History NEUROLOGIC: Positive Cerebrovascular Accident and Paralysis CARDIAC: Positive Cardiac Disorders and Myocardial Infarction ENDOCRINE: Positive Endocrine Disorders and Diabetes Mellitus Type 2 PSYCHO/SOCIAL: Positive Depression Family History FAMILY HISTORY: Positive Family Respiratory Disorders (chronic respiratory failure) Social History SMOKING STATUS: Never smoker SECOND HAND EXPOSURE: No SUBSTANCE USE: does not use ALCOHOL: Never Exam Vital Signs Temp Pulse Resp BP Pulse Ox O2 Del Method FiO2 99.3 F 83 18 86/50 L 95 Mechanical Ventilation 30 11/10/24 19:30 11/10/24 19:46 11/10/24 19:30 11/10/24 19:46 11/10/24 19:30 11/10/24 19:30 11/10/24 19:30 Narrative Exam General: No acute distress, Alert and responding with eye blinking once to know, and twice to yes HEENT: Moist mucous membranes, oropharynx clear Neck: Supple, No masses, No JVD, trach collar on place CVS: S1S2 Regular rate and rhythm, No murmurs, rubs or gallops Lungs: Clear to auscultation with no accessory use, mild rhonchi appreciated throughout the lung field, but no crackles Abd: Soft, NT/ND, +BS, no organomegaly Ext: No edema, warm and well perfused Skin: No rash Psych: Appropriate mood and affect Results: Labs 11/10/24 16:20 11/10/24 16:20 Labs: Short CBC 11/10/24 Range/Units 16:20 WBC 10.1 (3.6-11.0) Thou/mm3 Hgb 12.3 (12.0-16.0) g/dL Hct 37.3 (36.0-46.0) % Plt Count 336 D (140-440) Thou/mm3 BMP 11/10/24 16:20 Sodium 134 L Potassium 4.6 Chloride 94 L Carbon Dioxide 28.1 BUN 21 Creatinine 0.7 Glucose 187 H Calcium 9.9 Cardiac Enzymes 11/10/24 Range/Units 16:20 Troponin I 0.045 (0.0-0.045) ng/mL Liver Function 11/10/24 Range/Units 16:20 Total Bilirubin 0.6 (0.3-1.2) mg/dL AST 15 (0-34) U/L ALT 12 (10-49) U/L Alkaline Phosphatase 91 (46-116) U/L Albumin 4.8 (3.4-4.8) gm/dL Urine 11/10/24 Range/Units 15:33 Urine Color Yellow (Lt Yel-Yel) Urine Clarity Turbid A (Clear/Hazy) Urine pH 6.0 (5.0-7.0) Ur Specific [place] 1.033 (1.001-1.035) Urine Protein 2+ A (Neg - Trace) Urine Glucose (UA) Negative (Negative) Quality Measures Quality Measures none Advance care planning discussed with:: patient and spouse Medications Home Medications and Allergies Allergies Allergy/AdvReac Type Severity Reaction Status Date / Time codeine Allergy Verified 10/01/24 06:20 Visit Medications Acetaminophen (Acetaminophen 325 Mg Tablet) 650 mg PO Q4HR PRN PRN Reason: PAIN SCALE 1-3 (mild Stop: 12/10/24 20:22 Acetaminophen (Acetaminophen Supp 650 Mg Supp) 650 mg DE Q4HR PRN PRN Reason: PAIN SCALE 1-3 (mild Stop: 12/10/24 20:22 Al Hydrox/Mg Hydrox/Simethicone (Mg Hyd/Al Hyd/Zhang (Maalox Reg) Susp 30 Ml Udc) 30 ml PO Q4HR PRN PRN Reason: Heartburn or Upset Stomach Stop: 12/10/24 20:22 Heparin Sodium (Porcine) (Heparin Sod Inj 5000 Unit/Ml Vial) 5,000 unit SC Q8HR KWAME Stop: 11/24/24 21:59 Magnesium Sulfate (Magnesium Sulfate Ivpb) 4 gm in 50 mls @ 12.5 mls/hr IV X1 ONE Stop: 11/10/24 21:41 Last Admin: 11/10/24 17:59 Dose: 12.5 mls/hr Norepinephrine Bitartrate (Levophed In Ns 16mg/250ml) 16 mg in 250 mls @ 3.997 mls/hr IV .Q24H PRN; Protocol PRN Reason: PER PROTOCOL Stop: 12/10/24 19:32 Last Admin: 11/10/24 19:46 Dose: 0.05 mcg/kg/min, 3.997 mls/hr Piperacillin/Tazobactam/Dextrose (Zosyn) 50 mls @ 100 mls/hr IV Q6H KWAME Stop: 11/17/24 21:14 Magnesium Hydroxide (Milk Of Magnesia Susp 30 Ml Udc) 30 ml PO QDAY PRN PRN Reason: CONSTIPATION Stop: 12/10/24 20:22 Nitroglycerin (Nitroglycerin 0.4 Mg Subl Btl #25) 0.4 mg SL Q5MIN PRN PRN Reason: CHEST PAIN Ondansetron HCl (Ondansetron Inj 2 Mg/Ml Inj 2 Ml) 4 mg IVP Q6HR PRN PRN Reason: NAUSEA OR VOMITING Stop: 12/10/24 15:18 Last Admin: 11/10/24 16:29 Dose: 4 mg Pharmacy Consult (Pharmacy Renal Dose Adjustment 1 Ea) 1 each XX PRN PRN PRN Reason: CONSULT Stop: 12/10/24 15:18 Discontinued Medications Piperacillin/Tazobactam/Dextrose (Zosyn) 3.375 gm in 50 mls @ 100 mls/hr IV X1 ONE Stop: 11/10/24 15:48 Last Infusion: 11/10/24 17:02 Dose: Infused Acetaminophen (Ofirmev Inj) 1,000 mg in 100 mls @ 250 mls/hr IV X1 ONE Stop: 11/10/24 15:47 Last Infusion: 11/10/24 16:59 Dose: Infused Lactated Ringer's (Lactated Ringers) 1,000 mls @ 999 mls/hr IV .Q1H1M ONE Stop: 11/10/24 16:25 Last Infusion: 11/10/24 17:30 Dose: Infused Vancomycin HCl 1,500 mg/ (Sodium Chloride) 500 mls @ 200 mls/hr IV X1 ONE Stop: 11/10/24 18:14 Last Admin: 11/10/24 19:55 Dose: 200 mls/hr Lactated Ringer's (Lactated Ringers) 1,000 mls @ 999 mls/hr IV .Q1H1M ONE Stop: 11/10/24 16:42 Last Infusion: 11/10/24 17:30 Dose: Infused Lactated Ringer's (Lactated Ringers) 1,000 mls @ 999 mls/hr IV .Q1H1M ONE Stop: 11/10/24 18:40 Last Infusion: 11/10/24 18:50 Dose: Infused Pharmacy Consult (Vancomycin Pharmacy To Dose 1 Each Each) 1 each IV QDAY PRN PRN Reason: PROTOCOL Stop: 12/10/24 15:29 Pharmacy Consult (Vancomycin Pharmacy To Dose 1 Each Each) 1 each IV X1 ONE Stop: 11/10/24 15:28 Assessment & Plan Plan The patient is a 69-year-old female with significant past medical history of diabetes mellitus type 2, hypertension, 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 Initially in the ED her vitals were significant for BP 136/65, pulse 111, RR 24, and her temperature 98.2, but her previous day temperature at [facility] was trending up to 102.7. The pt was admitted to ICU for further management of septic shock secondary to UTI. Neuro: At baseline, able to state yes or no by blinking eyes twice and once respectively #History of multiple CVA #Locked-in syndrome - Continue on aspirin 81 Mg daily - Continue on atorvastatin 40 Mg daily at night CVS: #Septic shock 2/2 #Ventilator associated PNA #UTI Further complicated by #Healthcare associated pneumonia The patient is a resident of subacute rehab, presented with chief complaint of fever of 102, was found to have SIRS criteria 2/4 positive with tachycardia and fever. UA was positive for UTI, UA revealed turbid urine, protein 2+, blood 3+, leukocyte esterase positive, RBC 129, WBC 99, bacteria 4+ Chest x-ray revealed left basilar pneumonia, CT chest/abdomen revealed bibasilar pneumonia The patient received 3 L of IV bolus fluid, Zosyn 3.375 g IV x 1, vancomycin 1.5 g IV x 1, and later on her map was less than 65, and was started on Levophed. Patient also received 1 g acetaminophen IV x 1, -Continue on Zosyn 3.375 g every 6 hourly - Continue on vancomycin daily, dosed by pharmacist - Blood culture, urine culture pending - Daily a.m. labs for CBC, CMP and electrolytes #Prolonged QTc Likely due to hypomagnesemia and septic shock - Received 4 g of magnesium sulfate in the ED - Ordered 4 g of magnesium sulfate x 1 again. - Daily a.m. labs for magnesium, and replete as needed #History of hypertension - Hold off on home antihypertensive given her sepsis Pulmonology: #Healthcare associated pneumonia - Management as above #Chronic respiratory failure on trach collar -Continue with mechanical ventilation via trach collar GI: - No active issue - We will reconcile home medication for constipation as needed #Pancreatitis ruled out CT abdomen was suspicious for pancreatitis, but lipase level was 22, and no abdominal tenderness on physical exam Renal: #Lactic acidosis Secondary to septic shock Patient received 3 L of IV normal saline bolus in the ED Presented with lactic acid of 3.4, that trended down to 2.7 - Continue to trend lactic acid until less than 2 #Mild hypomagnesemia Presented with magnesium of 1.5 - Received 4 g of magnesium sulfate in the ED - Ordered another 4 g of magnesium sulfate, given prolonged QTc. Endocrinology: #Diabetes mellitus type 2 - Started on sliding scale insulin every 6 hourly along with fingerstick blood sugar checks - A1c ordered Hematology: - No active issues ID: - Antibiotics as mentioned above - Follow-up on blood and urine cultures Psych: #Depression #Anxiety - Continue on duloxetine 30 Mg daily - May consider adding as needed lorazepam for anxiety Health maintenance: Dispo: Patient admitted to ICU for further management of septic shock secondary to VAP/ UTI Diet: N.p.o. for now DVT prophylaxis: Subcu heparin every 8 hourly Lines: Peripheral lines Antibiotics: Vancomycin and Zosyn CODE STATUS: Full code The patient's management plan was discussed with my attending physician MD Gucci Church MD, PGY3 Attending Provider Attestation/Addendum Attending Provider Attestation/Addendum After examination of the patient and review of the clinical data I feel that this patient needs admission to the hospital for further treatment/evaluation. TOTAL CC TIME: 45 MIN TOTAL TIME: 45 Minutes of direct medical management and planning of care. I Wilfredo Lee MD, attest that I was physically present for guerra portions of evaluation, and examined patient, labs and imagings and plan of care were discussed with IM residents team, and I agree with the findings and plans documented above.
[2024-11-10 22:21] LABS: Reflex Lactate? Y
[2024-11-10 22:29] LABS: Lactic Acid, 3 HR 1.3 mMol/L (0.4-2.0)
--- NOTE | 2024-11-10 22:50 | PC.NURSE ---
Report called to floor hossein Blackmon RN
[2024-11-11] VITALS (48 sets, daily range): BP systolic 86–165; BP diastolic 47–105; PULSE 78–104; RESP 16–30; TEMP 35.9–37.7; O2SAT 92–99; BMI 32.1
[2024-11-11] MEDS: HEPARIN SOD INJ 5000 UNIT/ML VIAL SC ×4 (00:05→21:23)
[2024-11-11] MEDS: CEFEPIME INJ 2 GM in SODIUM CHLORIDE 0.9% (Popper) 50 ML IV ×4 (01:56→21:22)
[2024-11-11 04:30] LABS: Base Excess 6 (-3-3); HCO3 30 mEq/L (20-26); Inspired Oxygen, FIO2 30 %; O2 Saturation 97 % (91-98); PCO2 43 mmHg (32.0-48.0); PO2 78 mmHg (83-108); pH, Arterial 7.46 (7.35-7.45)
[2024-11-11 04:32] LABS: Allen Test Performed/OK; Puncture Site Right Radial
[2024-11-11 06:12] LABS: Glucose Estimated Average 131 mg/dL (80-131); Hemoglobin A1C 6.2 % Hgb (4.8-6.0)
[2024-11-11 06:17] LABS: INR 1.1 (0.9-1.3); Prothrombin Time 11.5 Seconds (9.0-12.2)
[2024-11-11 06:25] LABS: Anion Gap 9 (7-16); BUN/Creatinine Ratio 33 Ratio (12-20); Blood Urea Nitrogen 13 mg/dL (9-23); Calcium 8.8 mg/dL (8.3-10.6); Carbon Dioxide 27.7 mMol/L (20.0-31.0); Chloride 101 mMol/L (98-107); Creatinine (Component) 0.4 mg/dL (0.6-1.3); Estimated Creatinine Clearance 131.6 mL/min (>60); Glucose 106 mg/dL (74-106); Magnesium 1.7 mg/dL (1.6-2.6); Osmolality,Calculated 275 (275-295); Potassium 3.7 mMol/L (3.4-5.1); Sodium 138 mMol/L (136-145); eGFR > 60 See Note
[2024-11-11] MEDS: DULoxetine HCL 30 MG CAPSULE PO (08:38)
[2024-11-11] MEDS: ASPIRIN 81 MG CHEW PO (08:38)
[2024-11-11] MEDS: ACETAMINOPHEN 325 MG TABLET 650 MG PO (09:42)
[2024-11-11] MEDS: GABAPENTIN 300 MG CAPSULE 600 MG GT ×3 (09:43→21:22)
--- NOTE | 2024-11-11 10:22 | PC.DIETICIAN ---
Nutrition prescription Glucerna 1.2 at 25 ml/hr via PEG tube by pump. Advance 10 ml every 8 hrs to goal rate of 45 ml/hr x 24 hrs. If no IV fluids, water flushes of 20 ml/hr (or per MD).
[2024-11-11] MEDS: MORPHINE SULF LIQD 10 MG/5 ML UDC PO ×3 (10:30→19:09)
--- NOTE | 2024-11-11 10:31 | ESPR_ITS ---
<Statement entered by Himanshu Magaña MD - 11/12/24 08:18> TOTAL CC TIME: 45 MIN I saw and evaluated the patient. I reviewed the resident?s note and agree with findings and plan as documented in the resident?s note. Upon my evaluation, this patient had a high probability of imminent or life- threatening deterioration due to sepsis, chronic respiratory failure, hypotension which required my direct attention, intervention, and personal management. This time is exclusive of time spent on procedures, which are documented separately if performed. Hypotension improved with IV fluid resuscitation, lactic acid is acceptable, chronic ventilator dependence. 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 She denied any headache, chest pain, abdominal pain, and further history was unable to be obtained, given her nonverbal status. Initially in the ED her vitals were significant for BP 136/65, pulse 111, RR 24, and her temperature 98.2, but her previous day temperature at subacute was trending up to 102.7. The patient is on trach collar, saturating 96% on 30% FiO2. Labs revealed white count 10.1, hemoglobin 12.3, platelet 336, coagulation panel WNL, sodium 134, potassium 4.6, bicarb 28.1, BUN 21, creatinine 0.7, lactic acid 3.2 that trended down to 2.7, magnesium 1.5, BNP 353, Pro-Andrea 0.55, lipase 22, UA revealed turbid urine, protein 2+, blood 3+, leukocyte esterase positive, RBC 129, WBC 99, bacteria 4+, EKG revealed sinus tachycardia with QTc 473. Chest x-ray was significant for left lower lobe pneumonia, abdomen/pelvis CT revealed significant bibasilar pneumonia, large right breast mass, suspicious for mild pericarditis, normal appendix. 11/11/2024: Patient is admitted overnight in view of septic shock, likely secondary to UTI, received 3 L of fluid bolus and patient is on Levophed for very short period of time in the ED. Later found to have improved blood pressures and admitted into the ICU for monitoring. Vitals are stable. On physical examination, patient is able to respond to questions with blinking of her eyes twice and once as a send no respectively. Endorsed that she is having burning micturition and lower abdominal pain. Patient is on mechanical ventilator and tracheostomy tube with her baseline ventilatory settings. ABG showed mild metabolic alkalosis. Sputum and blood cultures are pending. MRSA nasal screen is pending. Will continue antibiotics for now and can discontinue vancomycin once MRSA nasal screen comes back negative. As patient is hemodynamically stable does not need any ICU level of care, will downgrade to floors for further management. Exam Vital Signs Temp Pulse Resp BP Pulse Ox O2 Del Method FiO2 99.5 F 90 18 165/74 H 99 Mechanical Ventilation 30 11/11/24 08:00 11/11/24 09:00 11/11/24 00:35 11/11/24 09:00 11/11/24 09:00 11/11/24 08:00 11/11/24 08:00 Narrative Exam General: Awake. on tracheostomy. able to respond with blinking the eye HEENT: Normocephalic, atraumatic, mucous membranes moist. Heart: Regular rate and rhythm, no murmurs. Lungs: Clear to auscultation with no wheezing or crackles. Abdomen: Soft, nondistended, nontender, positive bowel sounds. ?No guarding or rebound tenderness. Neurologic: Alert and oriented x3, locked - in syndrome Extremities: No edema. Skin: No rash or ecchymoses. Objective Labs 11/10/24 16:20 11/11/24 04:20 Labs: Laboratory Results - last 24 hr 11/10/24 11/10/24 11/10/24 15:33 16:20 19:02 WBC 10.1 RBC 3.88 L Hgb 12.3 Hct 37.3 MCV 96 MCH 31.7 MCHC 33.0 RDW Std Deviation 53.5 H Plt Count 336 D Neut % (Auto) 79 Lymph % (Auto) 18 Dundy % (Auto) 3 Eos % (Auto) 0 Baso % (Auto) 0 Neut # (Auto) 8.0 H Lymph # (Auto) 1.8 Dundy # (Auto) 0.3 Eos # (Auto) 0.0 Baso # (Auto) 0.0 Immature Gran # (Auto) 0.03 H Absolute Nucleated RBC 0.00 Immature Gran % 0 Nucleated RBC % 0 PT 11.2 INR 1.0 APTT 29.1 Puncture Site ABG pH ABG pCO2 ABG pO2 ABG HCO3 ABG O2 Saturation ABG Base Excess FiO2 Sodium 134 L Potassium 4.6 Chloride 94 L Carbon Dioxide 28.1 Anion Gap 12 BUN 21 Creatinine 0.7 Estim Creat Clear Calc 75.2 eGFR > 60 BUN/Creatinine Ratio 30 H Glucose [address] Glu mg/dL Hemoglobin A1c Calculated Osmolality 276 Lactic Acid 3.4 H 2.7 H Calcium 9.9 Corrected Calcium 9.9 Phosphorus 3.0 Magnesium 1.5 L Total Bilirubin 0.6 AST 15 ALT 12 Alkaline Phosphatase 91 Lactate Dehydrogenase 159 Troponin I 0.045 B-Natriuretic Peptide 353 H Total Protein 7.6 Albumin 4.8 Globulin 2.8 Albumin/Globulin Ratio 1.7 Lipase 22 Procalcitonin 0.55 H Ur Collection Type Clean Catch Urine Color Yellow Urine Clarity Turbid A Urine pH 6.0 Ur Specific [place] 1.033 Urine Protein 2+ A Urine Glucose (UA) Negative Urine Ketones Trace Urine Blood 3+ A Urine Nitrite Negative Urine Bilirubin Negative Urine Urobilinogen (Auto) 3.0 Ur Leukocyte Esterase Positive Urine RBC 129 H Urine WBC 99 H Ur Squamous Epith Cells 1 Urine Bacteria 4+ A Hyaline Casts < 1 Urine 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 11/10/24 11/11/24 11/11/24 22:23 04:20 04:22 WBC RBC Hgb Hct MCV MCH MCHC RDW Std Deviation Plt Count Neut % (Auto) Lymph % (Auto) Dundy % (Auto) Eos % (Auto) Baso % (Auto) Neut # (Auto) Lymph # (Auto) Dundy # (Auto) Eos # (Auto) Baso # (Auto) Immature Gran # (Auto) Absolute Nucleated RBC Immature Gran % Nucleated RBC % PT 11.5 INR 1.1 APTT Puncture Site Right Radial ABG pH 7.46 H ABG pCO2 43 ABG pO2 78 L ABG HCO3 30 H ABG O2 Saturation 97 ABG Base Excess 6 H FiO2 30 Sodium 138 Potassium 3.7 D Chloride 101 Carbon Dioxide 27.7 Anion Gap 9 BUN 13 Creatinine 0.4 L Estim Creat Clear Calc 131.6 eGFR > 60 BUN/Creatinine Ratio 33 H Glucose [address] Glu mg/dL 131 Hemoglobin A1c 6.2 H Calculated Osmolality 275 Lactic Acid 1.3 Calcium 8.8 Corrected Calcium Phosphorus Magnesium 1.7 Total Bilirubin AST ALT Alkaline Phosphatase Lactate Dehydrogenase Troponin I B-Natriuretic Peptide Total Protein Albumin Globulin Albumin/Globulin Ratio Lipase Procalcitonin Ur Collection Type Urine Color Urine Clarity Urine pH Ur Specific [place] Urine Protein Urine Glucose (UA) Urine Ketones Urine Blood Urine Nitrite Urine Bilirubin Urine Urobilinogen (Auto) Ur Leukocyte Esterase Urine RBC Urine WBC Ur Squamous Epith Cells Urine Bacteria Hyaline Casts Urine Sperm ABG Interpretation ABG results: 11/11/24 04:22 ABG pH 7.46 H ABG pCO2 43 ABG pO2 78 L ABG HCO3 30 H ABG O2 Saturation 97 ABG Base Excess 6 H Quality Measures Quality Measures none Advance care planning discussed with:: patient Assessment & Plan Assessment Current Active Medications: Generic Name Dose Route Start Last Admin Trade Name Freq PRN Reason Stop Dose Admin Acetaminophen 650 mg 11/10/24 20:23 11/11/24 09:42 Acetaminophen 325 Mg Tablet PO 12/10/24 20:22 650 mg Q4HR PRN Administration PAIN SCALE 1-3 (mild Acetaminophen 650 mg 11/10/24 20:23 Acetaminophen Supp 650 Mg Supp ME 12/10/24 20:22 Q4HR PRN PAIN SCALE 1-3 (mild Al Hydrox/Mg Hydrox/Simethicone 30 ml 11/10/24 20:23 Mg Hyd/Al Hyd/Zhang (Maalox Reg) Susp 30 Ml Udc PO 12/10/24 20:22 Q4HR PRN Heartburn or Upset Stomach Aspirin 81 mg 11/12/24 09:00 Aspirin 81 Mg Chew GT 12/12/24 08:59 QDAY KWAME Atorvastatin Calcium 40 mg 11/11/24 21:00 Atorvastatin Calcium 20 Mg Tablet GT 12/11/24 20:59 HS KWAME Dextrose 25 ml 11/10/24 22:06 Dextrose 50%-Water Inj 50 Ml Syringe IV 12/10/24 22:05 Q15MIN PRN BG 50-70 responsive npo pt Dextrose 50 ml 11/10/24 22:06 Dextrose 50%-Water Inj 50 Ml Syringe IV 12/10/24 22:05 Q15MIN PRN BG <50 OR BG <70 & pt unresponsive Duloxetine HCl 30 mg 11/12/24 09:00 Duloxetine Hcl 30 Mg Capsule GT 12/12/24 08:59 QDAY KWAME Gabapentin 600 mg 11/11/24 09:45 11/11/24 09:43 Gabapentin 300 Mg Capsule GT 12/11/24 09:44 600 mg TID KWAME Administration Glucagon 1 mg 11/10/24 22:06 Glucagon Inj 1 Mg Vial IM Q15MIN PRN BG <70, and no IV access Heparin Sodium (Porcine) 5,000 unit 11/10/24 22:00 11/11/24 06:10 Heparin Sod Inj 5000 Unit/Ml Vial SC 11/24/24 21:59 5,000 unit Q8HR KWAME Administration Cefepime HCl 2 gm/ Sodium 50 mls @ 100 mls/hr 11/11/24 01:00 11/11/24 06:10 Chloride IV 11/18/24 00:59 100 mls/hr Q8HR KWAME Administration Insulin Human Lispro 0 unit 11/11/24 00:00 11/11/24 06:08 Insulin Lispro (Admelog) 1 Unit/0.01 Ml Unit SC 12/11/24 00:00 Not Given Q6HR [facility] Protocol Magnesium Hydroxide 30 ml 11/10/24 20:23 Milk Of Magnesia Susp 30 Ml Udc PO 12/10/24 20:22 QDAY PRN CONSTIPATION Morphine Sulfate 10 mg 11/11/24 09:56 Morphine Sulf Liqd 10 Mg/5 Ml Udc PO 11/16/24 09:55 Q4HR PRN Pain 7-10 Ondansetron HCl 4 mg 11/10/24 15:19 11/10/24 16:29 Ondansetron Inj 2 Mg/Ml Inj 2 Ml IVP 12/10/24 15:18 4 mg Q6HR PRN Administration NAUSEA OR VOMITING Pharmacy Consult 1 each 11/10/24 15:19 Pharmacy Renal Dose Adjustment 1 Ea XX 12/10/24 15:18 PRN PRN CONSULT Phenazopyridine HCl 100 mg 11/11/24 12:00 Phenazopyridine Hcl 100 Mg Tablet GT 11/13/24 08:01 TIDWM [facility] Plan The patient is a 69-year-old female with significant past medical history of diabetes mellitus type 2, hypertension, 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 Initially in the ED her vitals were significant for BP 136/65, pulse 111, RR 24, and her temperature 98.2, but her previous day temperature at [facility] was trending up to 102.7. The pt was admitted to ICU for further management of septic shock secondary to UTI. Neuro: At her baseline, able to state yes or no by blinking eyes twice and once respectively #History of multiple CVA #Locked-in syndrome - Continue on aspirin 81 Mg daily - Continue on atorvastatin 40 Mg daily at night CVS: #Shock, likely septic, resolved Differential diagnosis: Secondary to UTI versus ventilator associated pneumonia - UTI: Patient endorsed that she is having lower abdominal pain and burning micturition, which could be most likely cause of septic shock - VAP: Patient came from [facility], on chronic tracheostomy tube secondary to locked-in syndrome. Does not require any increased oxygen as patient is maintaining saturations well on the same ventilatory settings that she is at her baseline. No reported history of increased respiratory secretions. Unlikely to have ventilator associated pneumonia - Patient is on vasopressors for short period of time in the ED but as her blood pressures improved immediately, stopped vasopressors and moved to the ICU for monitoring Diagnostic test: - Urine analysis showed turbid urine with 2+ protein, 3+ blood, positive leukocyte esterase, RBC 129, WBC 9 9, 4+ bacteria - ABG done this morning showed pH 7.46, [id number], oxygen saturation 97% on her baseline ventilatory settings Treatment: - Urine cultures and blood cultures were sent, will follow-up on that - Will continue cefepime 2 g every 8 hourly [11/11- - Recommend to discontinue vancomycin once MRSA screen came back positive - Started on phenazopyridine as patient is complaining of burning micturition #Prolonged QTc Likely due to hypomagnesemia - Found to have magnesium of 1.5 at the time of admission - Repleted with total 8 g of magnesium - A.m. labs showed magnesium within normal limits - Will continue to monitor electrolytes and replete as needed - Will continue telemetry monitoring #History of hypertension - Hold off on home antihypertensive given her sepsis and normal blood pressures Pulmonology: #Chronic respiratory failure on trach collar -Continue with mechanical ventilation via trach collar GI: - No active issue - We will reconcile home medication for constipation as needed #Pancreatitis ruled out CT abdomen was suspicious for pancreatitis, but lipase level was 22, and no abdominal tenderness on physical exam Renal: #Lactic acidosis, resolved Secondary to septic shock Patient received 3 L of IV normal saline bolus in the ED Presented with lactic acid of 3.4, later downtrended to 1.0 #Mild hypomagnesemia, resolved Presented with magnesium of 1.5 - Received 4 g of magnesium sulfate in the ED - Ordered another 4 g of magnesium sulfate, given prolonged QTc. Endocrinology: #Diabetes mellitus type 2 - Started on sliding scale insulin every 6 hourly along with fingerstick blood sugar checks - A1c ordered Hematology: - No active issues ID: - Antibiotics as mentioned above - Follow-up on blood and urine cultures Psych: #Depression #Anxiety - Continue on duloxetine 30 Mg daily - May consider adding as needed lorazepam for anxiety Health maintenance: Dispo: Patient admitted to ICU for further management of septic shock secondary to VAP/ UTI Diet: N.p.o. for now DVT prophylaxis: Subcu heparin every 8 hourly Lines: Peripheral lines Antibiotics: Vancomycin and Zosyn CODE STATUS: Full code Patient plan of care was discussed with the [facility], Dr. Gómez Thayer, PGY2
[2024-11-11] MEDS: MG HYD/AL HYD/SIME (Maalox Reg) SUSP 30 ML UDC PO (12:37)
[2024-11-11] MEDS: PHENAZOPYRIDINE HCL 100 MG TABLET GT ×2 (12:37→19:07)
--- NOTE | 2024-11-11 13:01 | PC.SS ---
MAINTENANCE TECHNICIAN 2ND SHIFT conducted bedside contact with the patient conduct initial assessment and to discuss discharge planning.? At bedside with patient was spouse, Jeff Cohen .? Information obtained from patient?s spouse.? Patient is Trach/PEG.? Patient is a resident of the sub-acute unit.? Patient is non-verbal.? Per spouse, patient blinks once for no and blinks twice for yes in order to communicate.? Patient has been a resident of [facility] for approximately 3 months.? Patient transitioned to sub-acute from [facility].? Facility PCP is Dr. Ball.? Spouse confirmed that discharge plan for the patient will be to return to the sub-acute unit upon discharge.? Patient possesses history of depression.? No further discharge needs identified by the patient.? No further intervention required at this time, social services designee will be available to address any further concerns.? Next of Kin: Jeff Cohen D/C Plan: Sub-Acute
--- NOTE | 2024-11-11 15:11 | ESPR_ITS ---
<Statement entered by Katina Coelho MD - 11/11/24 22:40> Patient was seen and examined at bedside. I agree on the assessment and plan on this note as documented by resident Veronica Dixon PGY1. Patient downgraded from intensive care unit to hospitalist service, patient was admitted overnight to intensive care unit for underlying distributive shock: Likely septic, had lactic acidosis requiring pressor support for 1.5 hours, initially patient sepsis did not respond to IV fluid resuscitation however eventually patient was weaned off of pressors underlying source urinary tract infection patient is on cefepime. Patient's imaging finding consistent with mild pancreatitis, low clinical suspicion at time of admission, however patient today endorses abdominal pain, will hold tube feeds, started patient on maintenance fluid, patient did receive adequate IV fluid resuscitation yesterday. Patient is chronically bedbound, has a tracheostomy tube and PEG tube in place, patient on SIMV volume control, synchronous with the mechanical ventilator. Patient's has underlying concern of possible changing of Shiley collar, will follow-up with respiratory therapist in AM. Patient does have underlying QTc prolongation avoid QT prolonging agents, will keep magnesium greater than 2 at all times. Will continue to monitor patient overnight, disposition tele. Case discussed with attending Dr. Jeanette Coelho MD PGY-2 Documentation for date of: 11/11/24 Subjective Subjective Interval history: Patient was downgraded to hospitalist teams today. Patient was seen and examined at bedside. 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 Patient denies any current chest pain, shortness of breath or abdominal pain. Denies pain on urination or ever having pain on urination. No current complaints. Per at bedside she is ventilator dependent and is mental status is at her baseline. This afternoon complained of 6/10 epigastric abdominal pain about 45 mintues after tube feeding was started. Given IV morphine 10 units and Maalox. CTAP on 11/10 showed mild edema around pancreas. Blood pressure 117/70, HR 96, and no fevers since admission patient is being mechanically ventilated FiO2 30. Patient received 3 L of IVF, Zosyn and vancomycin x 1. In ED patient's MAP was less than 65 he was started on Levophed. In ICU blood pressure increased to 140 systolic and Levophed was discontinued, was on levophed for 1.5 hours. Patient is currently on cefepime for UTI. Exam Vital Signs Temp Pulse Resp BP Pulse Ox O2 Del Method FiO2 96.8 F 96 20 117/70 92 L Mechanical Ventilation 30 11/11/24 12:00 11/11/24 12:07 11/11/24 12:00 11/11/24 12:00 11/11/24 12:07 11/11/24 12:00 11/11/24 12:07 Narrative Exam GENERAL: AOx3, no acute distress, trach tube in place on mechanical ventilator HEENT: NC/AT, mucous membranes moist, bilateral sclera anicteric CARDIOVASCULAR: regular rate and rhythm, S1/S2 present, no murmurs appreciated PULMONARY: clear to auscultation bilaterally, no rales/rhonchi/wheezes ABDOMINAL: soft, non-distended, no rebound/guarding, bowel sounds present, e pigastric tenderness EXTREMITIES: no peripheral edema SKIN: warm and dry, intact, no rashes NEURO: alert, following commands, 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 Objective Labs 11/12/24 05:32 11/12/24 05:32 Labs: Laboratory Results - last 24 hr 11/10/24 11/10/24 11/10/24 15:33 16:20 19:02 WBC 10.1 RBC 3.88 L Hgb 12.3 Hct 37.3 MCV 96 MCH 31.7 MCHC 33.0 RDW Std Deviation 53.5 H Plt Count 336 D Neut % (Auto) 79 Lymph % (Auto) 18 [place] % (Auto) 3 Eos % (Auto) 0 Baso % (Auto) 0 Neut # (Auto) 8.0 H Lymph # (Auto) 1.8 [place] # (Auto) 0.3 Eos # (Auto) 0.0 Baso # (Auto) 0.0 Immature Gran # (Auto) 0.03 H Absolute Nucleated RBC 0.00 Immature Gran % 0 Nucleated RBC % 0 PT 11.2 INR 1.0 APTT 29.1 Puncture Site ABG pH ABG pCO2 ABG pO2 ABG HCO3 ABG O2 Saturation ABG Base Excess FiO2 Sodium 134 L Potassium 4.6 Chloride 94 L Carbon Dioxide 28.1 Anion Gap 12 BUN 21 Creatinine 0.7 Estim Creat Clear Calc 75.2 eGFR > 60 BUN/Creatinine Ratio 30 H Glucose [address] Glu mg/dL Hemoglobin A1c Calculated Osmolality 276 Lactic Acid 3.4 H 2.7 H Calcium 9.9 Corrected Calcium 9.9 Phosphorus 3.0 Magnesium 1.5 L Total Bilirubin 0.6 AST 15 ALT 12 Alkaline Phosphatase 91 Lactate Dehydrogenase 159 Troponin I 0.045 B-Natriuretic Peptide 353 H Total Protein 7.6 Albumin 4.8 Globulin 2.8 Albumin/Globulin Ratio 1.7 Lipase 22 Procalcitonin 0.55 H Ur Collection Type Clean Catch Urine Color Yellow Urine Clarity Turbid A Urine pH 6.0 Ur Specific [place] 1.033 Urine Protein 2+ A Urine Glucose (UA) Negative Urine Ketones Trace Urine Blood 3+ A Urine Nitrite Negative Urine Bilirubin Negative Urine Urobilinogen (Auto) 3.0 Ur Leukocyte Esterase Positive Urine RBC 129 H Urine WBC 99 H Ur Squamous Epith Cells 1 Urine Bacteria 4+ A Hyaline Casts < 1 Urine Sperm PERMIT AGENT 11/10/24 11/11/24 11/11/24 22:23 04:20 04:22 WBC RBC Hgb Hct MCV MCH MCHC RDW Std Deviation Plt Count Neut % (Auto) Lymph % (Auto) [place] % (Auto) Eos % (Auto) Baso % (Auto) Neut # (Auto) Lymph # (Auto) [place] # (Auto) Eos # (Auto) Baso # (Auto) Immature Gran # (Auto) Absolute Nucleated RBC Immature Gran % Nucleated RBC % PT 11.5 INR 1.1 APTT Puncture Site Right Radial ABG pH 7.46 H ABG pCO2 43 ABG pO2 78 L ABG HCO3 30 H ABG O2 Saturation 97 ABG Base Excess 6 H FiO2 30 Sodium 138 Potassium 3.7 D Chloride 101 Carbon Dioxide 27.7 Anion Gap 9 BUN 13 Creatinine 0.4 L Estim Creat Clear Calc 131.6 eGFR > 60 BUN/Creatinine Ratio 33 H Glucose [address] Glu mg/dL 131 Hemoglobin A1c 6.2 H Calculated Osmolality 275 Lactic Acid 1.3 Calcium 8.8 Corrected Calcium Phosphorus Magnesium 1.7 Total Bilirubin AST ALT Alkaline Phosphatase Lactate Dehydrogenase Troponin I B-Natriuretic Peptide Total Protein Albumin Globulin Albumin/Globulin Ratio Lipase Procalcitonin Ur Collection Type Urine Color Urine Clarity Urine pH Ur Specific [place] Urine Protein Urine Glucose (UA) Urine Ketones Urine Blood Urine Nitrite Urine Bilirubin Urine Urobilinogen (Auto) Ur Leukocyte Esterase Urine RBC Urine WBC Ur Squamous Epith Cells Urine Bacteria Hyaline Casts Urine Sperm ABG Interpretation ABG results: 11/11/24 04:22 ABG pH 7.46 H ABG pCO2 43 ABG pO2 78 L ABG HCO3 30 H ABG O2 Saturation 97 ABG Base Excess 6 H Quality Measures Quality Measures none Advance care planning discussed with:: patient Assessment & Plan Assessment Current Active Medications: Generic Name Dose Route Start Last Admin Trade Name Freq PRN Reason Stop Dose Admin Acetaminophen 650 mg 11/10/24 20:23 11/11/24 09:42 Acetaminophen 325 Mg Tablet PO 12/10/24 20:22 650 mg Q4HR PRN Administration PAIN SCALE 1-3 (mild Acetaminophen 650 mg 11/10/24 20:23 Acetaminophen Supp 650 Mg Supp MI 12/10/24 20:22 Q4HR PRN PAIN SCALE 1-3 (mild Al Hydrox/Mg Hydrox/Simethicone 30 ml 11/10/24 20:23 11/11/24 12:37 Mg Hyd/Al Hyd/Zhang (Maalox Reg) Susp 30 Ml Udc PO 12/10/24 20:22 30 ml Q4HR PRN Administration Heartburn or Upset Stomach Aspirin 81 mg 11/12/24 09:00 Aspirin 81 Mg Chew GT 12/12/24 08:59 QDAY KWAME Atorvastatin Calcium 40 mg 11/11/24 21:00 Atorvastatin Calcium 20 Mg Tablet GT 12/11/24 20:59 HS KWAME Dextrose 25 ml 11/10/24 22:06 Dextrose 50%-Water Inj 50 Ml Syringe IV 12/10/24 22:05 Q15MIN PRN BG 50-70 responsive npo pt Dextrose 50 ml 11/10/24 22:06 Dextrose 50%-Water Inj 50 Ml Syringe IV 12/10/24 22:05 Q15MIN PRN BG <50 OR BG <70 & pt unresponsive Duloxetine HCl 30 mg 11/12/24 09:00 Duloxetine Hcl 30 Mg Capsule GT 12/12/24 08:59 QDAY KWAME Gabapentin 600 mg 11/11/24 09:45 11/11/24 14:50 Gabapentin 300 Mg Capsule GT 12/11/24 09:44 600 mg TID KWAME Administration Glucagon 1 mg 11/10/24 22:06 Glucagon Inj 1 Mg Vial IM Q15MIN PRN BG <70, and no IV access Heparin Sodium (Porcine) 5,000 unit 11/10/24 22:00 11/11/24 14:51 Heparin Sod Inj 5000 Unit/Ml Vial SC 11/24/24 21:59 5,000 unit Q8HR KWAME Administration Cefepime HCl 2 gm/ Sodium 50 mls @ 100 mls/hr 11/11/24 01:00 11/11/24 14:50 Chloride IV 11/18/24 00:59 100 mls/hr Q8HR KWAME Administration Insulin Human Lispro 0 unit 11/11/24 00:00 11/11/24 11:05 Insulin Lispro (Admelog) 1 Unit/0.01 Ml Unit SC 12/11/24 00:00 Not Given Q6HR KWAME Protocol Magnesium Hydroxide 30 ml 11/10/24 20:23 Milk Of Magnesia Susp 30 Ml Udc PO 12/10/24 20:22 QDAY PRN CONSTIPATION Morphine Sulfate 10 mg 11/11/24 09:56 11/11/24 14:50 Morphine Sulf Liqd 10 Mg/5 Ml Udc PO 11/16/24 09:55 10 mg Q4HR PRN Administration Pain 7-10 Ondansetron HCl 4 mg 11/10/24 15:19 11/10/24 16:29 Ondansetron Inj 2 Mg/Ml Inj 2 Ml IVP 12/10/24 15:18 4 mg Q6HR PRN Administration NAUSEA OR VOMITING Pharmacy Consult 1 each 11/10/24 15:19 Pharmacy Renal Dose Adjustment 1 Ea XX 12/10/24 15:18 PRN PRN CONSULT Phenazopyridine HCl 100 mg 11/11/24 12:00 11/11/24 12:37 Phenazopyridine Hcl 100 Mg Tablet GT 11/13/24 08:01 100 mg TIDWM KWAME Administration Plan Mello Cohen is a 69F 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 #Sepsis shock, resolved likely 2/2 #UTI #Lactic acidosis, resolved Patiently initially presented with fever of 102, tachycardia, tachypnea and elevated WBC at 11.4 on admission. Initially thought to have pneumonia due to CXR showing significant pneumonia at left base; however patient is not requiring more oxygen or desaturating, and lungs on exam were both clear to auscultation. CTAP showed significant bibasilar pneumonia, large right breast mass, suspicious for mild pancreatitis, normal appendix UA showed turbid, +LE and nitries, 3+ bacteria and 51 WBC Patient denies any current or previous urinary symptoms such as pain on urination, suprapubic pain, increased frequency or urgency. Lactic acid 3.4 on admission, decreased 2.7 and 1.3 s/p 3L LR Vancomycin (11/10), Zosyn (11/10) Plan: - Continue Cefepime (11/11- - CTM vitals and trend WBC - F/u UCx and BCx #Suspicion of pancreatitis On admission complained of no abdominal pain. On 11/11, developed 6 out of 10 epigastric pain that started about 45 minutes prior to tube feed. With epigastric pain and CTAP finding showing suspicion for mild pancreatitis with mild edema around the pancreas, suspicion for pancreatitis is high. No history of CHF. 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 Cannot communicate verbally, blinks twice for yes and once for no. Plan: - Continue ASA 81 mg daily and atorvastatin 40 mg nightly #Chronic respiratory failure, mechanically ventilated on trach collar Patient is mechanically ventilated with tracheostomy likely 2/2 multiple CVAs. Is here from subacute facility and is mechanically ventilated, never on blow-by oxygen. Plan: - Continue mechanical ventilation through tracheostomy - Contact respiratory therapist to check Shiley collar tomorrow #Prolonged QTc On admission QTc was 473 on EKG. Likely due to septic shock and possible hypomagnesemia. QTc not prolonged on previous EKG in 10/2024, 414. Plan: - CTM tele - Replete electrolytes as below - Avoid QTc prolongation agents #HTN Hold home hypertensive iso recent recovery from septic shock and current systolic BP 115-125 off BP meds. Plan: - Consider restarting home BP meds if becomes hypertensive - CTM vitals #Insulin-dependent type 2 diabetes At home uses 10 units of glargine and Trulicity. 11/11/24 HbA1c 6.2. Plan: - SSI - CTM glucose #Hypomagnesemia On admission magnesium 1.5. s/p Mg sulfate 4g x2 Plan: - Keep Mg >2 at all times - Check and replete as necessary #Anxiety #Depression Patient has a history of anxiety and depression. Has lorazepam 0.5 mg as needed for anxiety and duloxetine 30 mg daily for depression. Plan: - Continue duloxetine 30 mg daily - Consider restarting home dose lorazepam as needed for anxiety Hospital management: Lines: peripheral IV, PEG tube Diet: Glucerna PEG tube GI prophylaxis: IV Pantoprazole 40 QD DVT prophylaxis: Heparin q8 Disposition: tele for continuation of cefepime CODE STATUS: Full code Plan of care discussed with attending Dr. Reid, and PGY-2 Dr. Coelho. Veronica Dixon, DO PGY-1 Internal Medicine Attending Provider Attestation/Addendum I attest that I was physically present for the evaluation, physical examination, lab and imaging review of the patient with the residents. I discussed the case with the residents and agree with the findings and plans of care as documented above. Renato Reid MD
[2024-11-11] MEDS: RINGERS LACTATED 1000 ML 1,000 ML 80 ML IV (16:08)
[2024-11-11 16:47] LABS: Lactate (Lactic Acid) 1.0 mMol/L (0.4-2.0)
[2024-11-11 17:18] LABS: Cardiac Risk Estimate 3.4 RATIO (3.7-5.6); Cholesterol 89 mg/dL (132-200); HDL Cholesterol 26 mg/dL (40-60); LDL Cholesterol,Calculated 37 mg/dL (0-130); Triglycerides 132 mg/dL (30-150)
[2024-11-11] MEDS: ATORVASTATIN CALCIUM 20 MG TABLET 40 MG GT (21:22)
[2024-11-12] VITALS (10 sets, daily range): BP systolic 113–163; BP diastolic 56–78; PULSE 66–102; RESP 15–20; TEMP 36.1–36.4; O2SAT 90–99; BMI 34.4
[2024-11-12] MEDS: MORPHINE SULF LIQD 10 MG/5 ML UDC PO ×2 (01:17→18:33)
[2024-11-12] MEDS: CEFEPIME INJ 2 GM in SODIUM CHLORIDE 0.9% (Popper) 50 ML IV ×3 (05:19→22:25)
[2024-11-12] MEDS: GABAPENTIN 300 MG CAPSULE 600 MG GT ×3 (05:20→22:24)
[2024-11-12] MEDS: HEPARIN SOD INJ 5000 UNIT/ML VIAL SC ×3 (05:20→22:39)
[2024-11-12] MEDS: RINGERS LACTATED 1000 ML 1,000 ML 80 ML IV ×2 (05:23→20:51)
[2024-11-12 06:10] LABS: Basophils # (Auto) 0.0 Thou/mm3 (0.0-0.2); Basophils % (Auto) 0 % (0-2.5); Eosinophils # (Auto) 0.3 Thou/mm3 (0.0-0.5); Eosinophils % (Auto) 3 % (0-10); Hematocrit 27.1 % (36.0-46.0); Hemoglobin 9.0 g/dL (12.0-16.0); Immature Granulocytes Auto 0.03 Thou/mm3 (0.00-0.00); Lymphocytes # (Auto) 1.9 Thou/mm3 (1.0-4.8); Lymphocytes % (Auto) 23 % (10-50); Mean Corpuscular HGB Conc 33.2 g/dl (31.0-37.0); Mean Corpuscular Hemoglobin 31.8 pg (25.0-35.0); Mean Corpuscular Volume 96 fL (80-100); Monocytes # (Auto) 0.5 Thou/mm3 (0.0-0.8); Monocytes % (Auto) 6 % (0-12); Neutrophils # (Auto) 5.5 Thou/mm3 (1.8-7.7); Neutrophils % (Auto) 67 % (37-80); Nucleated Red Blood Cell # 0.00 Thou/mm3 (0.00-0.00); Nucleated Red Blood Cell % 0 /100 WBC (0); Platelet Count 252 Thou/mm3 (140-440); RDW Standard Deviation 53.7 fL (36.4-46.3); Red Blood Count 2.83 Miln/mm3 (4.00-5.20); White Blood Count 8.2 Thou/mm3 (3.6-11.0)
[2024-11-12 06:47] LABS: Anion Gap 10 (7-16); BUN/Creatinine Ratio 23 Ratio (12-20); Blood Urea Nitrogen 9 mg/dL (9-23); Calcium 8.6 mg/dL (8.3-10.6); Carbon Dioxide 26.1 mMol/L (20.0-31.0); Chloride 101 mMol/L (98-107); Creatinine (Component) 0.4 mg/dL (0.6-1.3); Estimated Creatinine Clearance 131.2 mL/min (>60); Glucose 106 mg/dL (74-106); Magnesium 1.7 mg/dL (1.6-2.6); Osmolality,Calculated 272 (275-295); Potassium 3.7 mMol/L (3.4-5.1); Sodium 137 mMol/L (136-145); eGFR > 60 See Note
[2024-11-12] MEDS: PHENAZOPYRIDINE HCL 100 MG TABLET GT ×3 (08:21→18:29)
[2024-11-12] MEDS: DULoxetine HCL 30 MG CAPSULE GT (08:21)
[2024-11-12] MEDS: ASPIRIN 81 MG CHEW GT (08:21)
[2024-11-12] MEDS: Magnesium Sulfate 4 GM Ivpb 4 GM/50 ML BAG IV (09:49)
--- NOTE | 2024-11-12 10:40 | ESPR_ITS ---
<Statement entered by Katina Coelho MD - 11/13/24 16:15> Patient was seen and examined at bedside. I agree on the assessment and plan on this note as documented by resident Veronica Dixon PGY1. Patient seen and examined at bedside, ICU downgrade, has been stable overnight on baseline mechanical ventilation settings, complains of abdominal pain will continue IV fluids for underlying suspicion of pancreatitis, will continue with IV antibiotics for now, GI consulted patient did have significant downtrending and hemoglobin. Patient was supposedly scheduled for EGD and colonoscopy outpatient from [facility]. Continue IV Protonix, continue home medications. Case discussed with attending Dr. Jeanette Coelho MD PGY-2 Documentation for date of: 11/12/24 Subjective Subjective Interval history: No acute overnight events. Patient was seen and examined at bedside, mechanically ventilated and blinks once for known 23 years. Patient complains of continued abdominal pain relieved by morphine, however better than yesterday. Denies chest pain shortness of breath or urinary symptoms such as burning on urination increased frequency and/or urgency. Urine cultures resulted to Klebsiella sensitive to cefepime, continue antibiotics. Sputum stain resulted in GNR but possible contamination due to presence of 10-25 epithelial cells. With improved abdominal pain, continue LR and begin slow feeding at 10 mL an hour versus 25 yesterday. Contacted RT today to inspect Prerna collar which has been told yesterday was leaking. Repeat EKG taken QTc prolongation resolved. Magnesium 1.7 this morning repleted with 4 g. Exam Vital Signs Temp Pulse Resp BP Pulse Ox O2 Del Method FiO2 97.6 F 102 H 16 113/56 L 97 Mechanical Ventilation 30 11/12/24 00:00 11/12/24 07:02 11/12/24 00:00 11/12/24 00:00 11/12/24 07:02 11/12/24 00:00 11/12/24 08:00 Narrative Exam GENERAL: AOx3, no acute distress, trach tube in place on mechanical ventilator HEENT: NC/AT, mucous membranes moist, bilateral sclera anicteric CARDIOVASCULAR: regular rate and rhythm, S1/S2 present, no murmurs appreciated PULMONARY: clear to auscultation bilaterally, no rales/rhonchi/wheezes ABDOMINAL: soft, non-distended, no rebound/guarding, bowel sounds present, +e pigastric tenderness EXTREMITIES: no peripheral edema SKIN: warm and dry, intact, no rashes NEURO: alert, following commands, 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 Objective Labs 11/12/24 13:59 11/12/24 05:32 Labs: Laboratory Results - last 24 hr 11/11/24 11/12/24 16:10 05:32 WBC 8.2 RBC 2.83 L Hgb 9.0 L D Hct 27.1 L D MCV 96 MCH 31.8 MCHC 33.2 RDW Std Deviation 53.7 H Plt Count 252 D Neut % (Auto) 67 Lymph % (Auto) 23 Alcorn % (Auto) 6 Eos % (Auto) 3 Baso % (Auto) 0 Neut # (Auto) 5.5 Lymph # (Auto) 1.9 Alcorn # (Auto) 0.5 Eos # (Auto) 0.3 Baso # (Auto) 0.0 Immature Gran # (Auto) 0.03 H Absolute Nucleated RBC 0.00 Immature Gran % 0 Nucleated RBC % 0 Sodium 137 Potassium 3.7 Chloride 101 Carbon Dioxide 26.1 Anion Gap 10 BUN 9 Creatinine 0.4 L Estim Creat Clear Calc 131.2 eGFR > 60 BUN/Creatinine Ratio 23 H Glucose 106 Calculated Osmolality 272 L Lactic Acid 1.0 Calcium 8.6 Magnesium 1.7 Triglycerides 132 Cholesterol 89 L LDL Cholesterol, Calc 37 HDL Cholesterol 26 L Cholesterol/HDL Ratio 3.4 L ABG Interpretation ABG results: 11/11/24 04:22 ABG pH 7.46 H ABG pCO2 43 ABG pO2 78 L ABG HCO3 30 H ABG O2 Saturation 97 ABG Base Excess 6 H Quality Measures Quality Measures none Advance care planning discussed with:: patient and spouse Assessment & Plan Assessment Current Active Medications: Generic Name Dose Route Start Last Admin Trade Name Freq PRN Reason Stop Dose Admin Acetaminophen 650 mg 11/10/24 20:23 11/11/24 09:42 Acetaminophen 325 Mg Tablet PO 12/10/24 20:22 650 mg Q4HR PRN Administration PAIN SCALE 1-3 (mild Acetaminophen 650 mg 11/10/24 20:23 Acetaminophen Supp 650 Mg Supp IN 12/10/24 20:22 Q4HR PRN PAIN SCALE 1-3 (mild Al Hydrox/Mg Hydrox/Simethicone 30 ml 11/10/24 20:23 11/11/24 12:37 Mg Hyd/Al Hyd/Zhang (Maalox Reg) Susp 30 Ml Udc PO 12/10/24 20:22 30 ml Q4HR PRN Administration Heartburn or Upset Stomach Aspirin 81 mg 11/12/24 09:00 11/12/24 08:21 Aspirin 81 Mg Chew GT 12/12/24 08:59 81 mg QDAY KWAME Administration Atorvastatin Calcium 40 mg 11/11/24 21:00 11/11/24 21:22 Atorvastatin Calcium 20 Mg Tablet GT 12/11/24 20:59 40 mg HS KWAME Administration Dextrose 25 ml 11/10/24 22:06 Dextrose 50%-Water Inj 50 Ml Syringe IV 12/10/24 22:05 Q15MIN PRN BG 50-70 responsive npo pt Dextrose 50 ml 11/10/24 22:06 Dextrose 50%-Water Inj 50 Ml Syringe IV 12/10/24 22:05 Q15MIN PRN BG <50 OR BG <70 & pt unresponsive Duloxetine HCl 30 mg 11/12/24 09:00 11/12/24 08:21 Duloxetine Hcl 30 Mg Capsule GT 12/12/24 08:59 30 mg QDAY KWAME Administration Gabapentin 600 mg 11/11/24 09:45 11/12/24 05:20 Gabapentin 300 Mg Capsule GT 12/11/24 09:44 600 mg TID KWAME Administration Glucagon 1 mg 11/10/24 22:06 Glucagon Inj 1 Mg Vial IM Q15MIN PRN BG <70, and no IV access Heparin Sodium (Porcine) 5,000 unit 11/10/24 22:00 11/12/24 05:20 Heparin Sod Inj 5000 Unit/Ml Vial SC 11/24/24 21:59 5,000 unit Q8HR KWAME Administration Cefepime HCl 2 gm/ Sodium 50 mls @ 100 mls/hr 11/11/24 01:00 11/12/24 05:19 Chloride IV 11/18/24 00:59 100 mls/hr Q8HR KWAME Administration Lactated Ringer's 1,000 mls @ 80 mls/hr 11/11/24 15:59 11/12/24 05:23 Lactated Ringers IV 12/11/24 15:58 80 mls/hr .[id number] KWAME Administration Magnesium Sulfate 4 gm in 50 mls @ 12.5 mls/hr 11/12/24 08:31 11/12/24 09:49 Magnesium Sulfate Ivpb IV 11/12/24 12:30 12.5 mls/hr X1 ONE Administration Insulin Human Lispro 0 unit 11/11/24 00:00 11/12/24 05:35 Insulin Lispro (Admelog) 1 Unit/0.01 Ml Unit SC 12/11/24 00:00 Not Given Q6HR KWAME Protocol Lorazepam 0.5 mg 11/11/24 21:46 11/11/24 22:04 Lorazepam 0.5 Mg Tablet GT 11/16/24 21:45 0.5 mg Q8HR PRN Administration ANXIETY Magnesium Hydroxide 30 ml 11/10/24 20:23 Milk Of Magnesia Susp 30 Ml Udc PO 12/10/24 20:22 QDAY PRN CONSTIPATION Morphine Sulfate 10 mg 11/11/24 09:56 11/12/24 01:17 Morphine Sulf Liqd 10 Mg/5 Ml Udc PO 11/16/24 09:55 10 mg Q4HR PRN Administration Pain 7-10 Ondansetron HCl 4 mg 11/10/24 15:19 11/10/24 16:29 Ondansetron Inj 2 Mg/Ml Inj 2 Ml IVP 12/10/24 15:18 4 mg Q6HR PRN Administration NAUSEA OR VOMITING Pantoprazole Sodium 40 mg 11/11/24 16:00 11/12/24 08:20 Pantoprazole Inj 40 Mg Vial IVP 12/11/24 15:59 40 mg QDAY KWAME Administration Pharmacy Consult 1 each 11/10/24 15:19 Pharmacy Renal Dose Adjustment 1 Ea XX 12/10/24 15:18 PRN PRN CONSULT Phenazopyridine HCl 100 mg 11/11/24 12:00 11/12/24 08:21 Phenazopyridine Hcl 100 Mg Tablet GT 11/13/24 08:01 100 mg TIDWM KWAME Administration Plan Mello Cohen is a 69F 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 #Sepsis shock, resolved likely 2/2 #UTI, Klebsiella #Lactic acidosis, resolved Patiently initially presented with fever of 102, tachycardia, tachypnea and elevated WBC at 11.4 on admission. Initially thought to have pneumonia due to CXR showing significant pneumonia at left base; however patient is not requiring more oxygen or desaturating, and lungs on exam were both clear to auscultation. CTAP showed significant bibasilar pneumonia, large right breast mass, suspicious for mild pancreatitis, normal appendix UA showed turbid, +LE and nitries, 3+ bacteria and 51 WBC Patient denies any current or previous urinary symptoms such as pain on urination, suprapubic pain, increased frequency or urgency. Lactic acid 3.4 on admission, decreased 2.7 and 1.3 s/p 3L LR s/p Vancomycin (11/10), Zosyn (11/10) BCx NGTD, sputum stain GNR but 10-25 epithelial cells so possible contamination UCx grew Klebsiella pneumoniae Plan: - Continue Cefepime (11/11- - CTM vitals and trend WBC #Suspicion of pancreatitis, low #Suspicion GIB #Gastritis On admission complained of no abdominal pain. On 11/11, developed 6 out of 10 epigastric pain that started about 45 minutes prior to tube feed. With epigastric pain and CTAP finding showing suspicion for mild pancreatitis with mild edema around the pancreas, suspicion for pancreatitis is high. No history of CHF. 11/10 Lipase wnl 22, Ca 8.8, lipid panel trig wnl, LDL wnl, cholesterol low, HDL low s/p 3L LR in ED Hgb dropped from 12.3 to 9.0, repeat H&H 9.4/27.3. Denies dark stools or hematochezia during current admisison. Per social work, patient was already planned to do outpatient EGD and colonoscopy for gastritis and abdominal pain. 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 Cannot communicate verbally, blinks twice for yes and once for no. Plan: - Continue ASA 81 mg daily and atorvastatin 40 mg nightly #Chronic respiratory failure, mechanically ventilated on trach collar Patient is mechanically ventilated with tracheostomy likely 2/2 multiple CVAs. Is here from subacute facility and is mechanically ventilated, never on blow-by oxygen. 11/11 RT contacted for Shiley collar adjustment. Plan: - Continue mechanical ventilation through tracheostomy - CTM O2 saturation #Prolonged QTc, resolved likely 2/2 hypomagnesemia On admission QTc was 473 on EKG. Likely due to septic shock and possible hypomagnesemia. QTc not prolonged on previous EKG in 10/2024, 414. Repeat 11/12 EKG QTc 354. Plan: - CTM tele - Replete electrolytes as below - Avoid QTc prolongation agents #HTN Hold home hypertensive iso recent recovery from septic shock and current systolic BP 115-125 off BP meds. Plan: - Consider restarting home BP meds if becomes hypertensive - CTM vitals #Insulin-dependent type 2 diabetes At home uses 10 units of glargine and Trulicity. 11/11/24 HbA1c 6.2. Plan: - SSI - CTM glucose #Hypomagnesemia On admission magnesium 1.5. s/p Mg sulfate 4g x2. Mg 1.7 Plan: - Keep Mg >2 at all times - Check and replete as necessary - Repleted Mg 4 g #Anxiety #Depression Patient has a history of anxiety and depression. Has lorazepam 0.5 mg as needed for anxiety and duloxetine 30 mg daily for depression. Plan: - Continue duloxetine 30 mg daily - Consider restarting home dose lorazepam as needed for anxiety #Breast Mass 11/10 CTAP showed large Rt breast mass, also seen on R breast sonogram 10/04/24. Plan: - Recommend to be worked up outpatient Hospital management: Lines: peripheral IV, PEG tube Diet: Glucerna PEG tube GI prophylaxis: IV Pantoprazole 40 QD DVT prophylaxis: Heparin q8 Disposition: tele for continuation of cefepime CODE STATUS: Full code Plan of care discussed with attending Dr. Reid, and PGY-2 Dr. Coelho. Veronica Dixon, DO PGY-1 Internal Medicine Attending Provider Attestation/Addendum I attest that I was physically present for the evaluation, physical examination, lab and imaging review of the patient with the residents. I discussed the case with the residents and agree with the findings and plans of care as documented above. At bedside today, patient appears more comfortable compared to yesterday. Continues to be mechanically ventilated, saturating well. Continues to complain of abdominal pain, but better controlled compared to yesterday. Patient's sputum culture grew Pseudomonas, urine culture grew Klebsiella, sensitive to cefepime. Blood culture grew GPC on one of the bottles, added vancomycin. We will continue with IV antibiotics and wait for final culture results. Resumed her back on trickle feeding and continue with IV hydration. Patient also noted to have drop in her hemoglobin, 9.0 today from 12.3 yesterday, we will obtain follow-up hemoglobin later today. With ongoing epigastric pain and drop in hemoglobin, concern for GI bleed, we will obtain GI consult and start patient on IV Protonix. Continues to be on home antihypertensives, insulin regimen, duloxetine, lorazepam. Renato Reid MD
--- NOTE | 2024-11-12 10:41 | EKG_ITS ---
[facility] Test Date: 2024-11-12 Pat Name: TOMASZ LAURENT [facility] Christmas Bell Ringer: NANCY : 1955 Requested By: Veronica Dixon Order Number: [id number] Reading MD: Veronica Dixon Measurements Intervals [place] Rate: 81 P: 39 VA: 155 QRS: 37 QRSD: 98 T: 35 QT: 329 QTc: 384 Interpretive Statements SINUS RHYTHM NONSPECIFIC T-WAVE ABNORMALITY Compared to ECG 11/10/2024 15:53:37 T-wave abnormality now present Sinus tachycardia no longer present /store/S0/[id number]/ecg/[id number].pdf
--- NOTE | 2024-11-12 14:39 | PC.SS ---
Per rounding meeting today, ASW asked the attending physicians about BALBIR Roe's request regarding the approved auth for the EGD and colonoscopy for the pt. Per cali, the auht was approved and she asked if the procedures can be done here since the pt is already admitted. Attending physicians said they see no problem with moving forward with the procedures and they will contact Dr. Toure and inform him that they are onboard with the procedures.
[2024-11-12 14:47] LABS: Hematocrit 27.3 % (36.0-46.0); Hemoglobin 9.4 g/dL (12.0-16.0)
[2024-11-12] MEDS: Vancomycin Inj 2,000 MG in SODIUM CHLORIDE 0.9% 500 ML 500 ML 150 MG IV (16:46)
--- NOTE | 2024-11-12 20:30 | PC.NURSE ---
called MD to clarify holding peg feedings for now. patient still in pain s/p q 4 hour morphine.
--- NOTE | 2024-11-12 21:47 | PD.IMCONS ---
HPI Data of Consult Requesting Physician: Renato Reid MD Primary Care Provider: Physician No Primary/Family Consult Narrative Reason for consult: Anemia Hemoccult positive stool History of present illness: 69 years old female asked by the ER physician team for evaluation of anemia of blood loss with Hemoccult positive stool Patient is admitted with bibasilar pneumonia fever of 102.3 right breast mass on CT scan of the abdomen pelvis without contrast and mild pancreatitis Patient has history of CVA and is nonverbal see the patient SNF I have seen this patient at the SNF and was trying to get upper endoscopy and colonoscopy scheduled but the authorization process took forever as she has severe abdominal pain which has not gotten better with any intervention cc:: cc: Renato Reid MD Review of Systems Review of Systems ROS Unobtainable: unobtainable due to medical condition Past Medical History Surgical History OTHER SURGICAL HX: As in the history of present illness Meds Home Medications and Allergies Home Medications ?Medication ?Instructions ?Recorded ?Confirmed ?Type pantoprazole 40 mg granules 40 mg G-tube QDAY GERD 11/12/24 11/11/24 History delayed-release for susp in packet Allergies Allergy/AdvReac Type Severity Reaction Status Date / Time codeine Allergy Verified 10/01/24 06:20 Exam Vital Signs Temp Pulse Resp BP Pulse Ox O2 Del Method FiO2 96.9 F 76 15 163/76 H 99 Mechanical Ventilation 30 11/12/24 20:00 11/12/24 20:00 11/12/24 20:00 11/12/24 20:00 11/12/24 20:00 11/12/24 20:00 11/12/24 16:00 Constitutional Comments: Chronically ill Routine Respiratory Exam Comments: Decreased breath sounds bases Results Labs 11/12/24 13:59 11/12/24 05:32 Labs: Short CBC 11/12/24 11/12/24 Range/Units 05:32 13:59 WBC 8.2 (3.6-11.0) Thou/mm3 Hgb 9.0 L D 9.4 L (12.0-16.0) g/dL Hct 27.1 L D 27.3 L (36.0-46.0) % Plt Count 252 D (140-440) Thou/mm3 BMP 11/12/24 05:32 Sodium 137 Potassium 3.7 Chloride 101 Carbon Dioxide 26.1 BUN 9 Creatinine 0.4 L Glucose 106 Calcium 8.6 ABG Interpretation ABG results: 11/11/24 04:22 ABG pH 7.46 H ABG pCO2 43 ABG pO2 78 L ABG HCO3 30 H ABG O2 Saturation 97 ABG Base Excess 6 H Assessment and Plan Additional Assessment & Plan Additional Plan: 69-year female admitted with fever bilateral pneumonia CT scan of the abdomen pelvis without contrast shows mild pancreatitis lipase level is normal right breast mass this patient has had multiple CVAs and is nonverbal Plan Fiberoptic esophagogastroduodenoscopy with possible biopsy possible therapeutic intervention under intravenous moderate sedation If negative we will schedule the patient for a fiberoptic colonoscopy prior to discharge Other medical problems include CVA and patient is nonverbal Right breast mass Bibasilar pneumonia CT scan normality of mild pancreatitis with a normal lipase Thank you very much for the opportunity to participate in care of this patient
[2024-11-12] MEDS: ATORVASTATIN CALCIUM 20 MG TABLET 40 MG GT (22:24)
[2024-11-13] VITALS (18 sets, daily range): BP systolic 90–161; BP diastolic 46–99; PULSE 65–120; RESP 13–33; TEMP 36.1–37; O2SAT 85–100; BMI 35.6
[2024-11-13] MEDS: CEFEPIME INJ 2 GM in SODIUM CHLORIDE 0.9% (Popper) 50 ML IV ×3 (05:54→22:25)
[2024-11-13] MEDS: GABAPENTIN 300 MG CAPSULE 600 MG GT ×2 (05:54→22:27)
[2024-11-13] MEDS: HEPARIN SOD INJ 5000 UNIT/ML VIAL SC ×2 (05:55→22:53)
--- NOTE | 2024-11-13 06:26 | XR_ITS ---
Examination: AP chest single view Technique one AP portable semiupright chest single view Date and time: November 13, 2024 0632 hours Comparison November 10, 2024 INDICATIONS: Difficulty breathing today. FINDINGS: Significant left base pneumonia Normal heart size Right lung clear Tracheostomy tube tip 7 cm above ever IMPRESSION: Significant left base pneumonia
--- NOTE | 2024-11-13 06:26 | EKG_ITS ---
[facility] Test Date: 2024-11-13 Pat Name: TOMASZ LAURENT [facility] Female Business Unit Controller: ADAM : 1955 Requested By: Yvonne Ponce Order Number: [id number] Reading MD: Yvonne Ponce Measurements Intervals [place] Rate: 92 P: 40 SC: 160 QRS: 31 QRSD: 97 T: 100 QT: 372 QTc: 461 Interpretive Statements SINUS RHYTHM ST DEVIATION AND MODERATE T-WAVE ABNORMALITY, CONSIDER LATERAL ISCHEMIA Compared to ECG 11/12/2024 11:18:02 Possible ischemia now present T-wave abnormality still present /store/S0/[id number]/[id number].pdf
[2024-11-13 06:27] LABS: Basophils # (Auto) 0.0 Thou/mm3 (0.0-0.2); Basophils % (Auto) 0 % (0-2.5); Eosinophils # (Auto) 0.2 Thou/mm3 (0.0-0.5); Eosinophils % (Auto) 3 % (0-10); Hematocrit 29.0 % (36.0-46.0); Hemoglobin 9.8 g/dL (12.0-16.0); Immature Granulocytes Auto 0.04 Thou/mm3 (0.00-0.00); Lymphocytes # (Auto) 1.7 Thou/mm3 (1.0-4.8); Lymphocytes % (Auto) 26 % (10-50); Mean Corpuscular HGB Conc 33.8 g/dl (31.0-37.0); Mean Corpuscular Hemoglobin 32.5 pg (25.0-35.0); Mean Corpuscular Volume 96 fL (80-100); Monocytes # (Auto) 0.4 Thou/mm3 (0.0-0.8); Monocytes % (Auto) 5 % (0-12); Neutrophils # (Auto) 4.2 Thou/mm3 (1.8-7.7); Neutrophils % (Auto) 65 % (37-80); Nucleated Red Blood Cell # 0.00 Thou/mm3 (0.00-0.00); Nucleated Red Blood Cell % 0 /100 WBC (0); Platelet Count 242 Thou/mm3 (140-440); RDW Standard Deviation 52.9 fL (36.4-46.3); Red Blood Count 3.02 Miln/mm3 (4.00-5.20); White Blood Count 6.5 Thou/mm3 (3.6-11.0)
[2024-11-13] MEDS: MORPHINE SULF LIQD 10 MG/5 ML UDC PO ×2 (06:27→12:22)
--- NOTE | 2024-11-13 06:38 | PD.RESEVENT ---
Documentation for date of: 11/13/24 Event Note Event Note: Rapid response was called at 630 for acute hypoxia with O2 saturations dropping to 80%. Patient was evaluated at bedside. She was alert and able to speak, but it appeared this dyspneic. Oxygen delivery was increased FiO2 100% stabilize her saturations, and she improved with escalation of support. Morphine 10 mg oral was administered through PEG tube to reduce work of breathing and patient discomfort. A stat chest x-ray, troponin, lactate, and EKG were ordered as part of this evaluation. EKG revealed new T wave inversions in leads V5 and V6, and ST depressions in V3 V4, which were not present on preop prior EKG. Given these concerning changes, recommendation was made to trend troponins, but no anticoagulation or ACS protocol was initiated at this time. Patient remains hemodynamically stable and is currently being monitored closely on high FiO2. Plan to titrate oxygen down as tolerated and follow-up on imaging and lab results. ----- Plan discussed with attending physician Dr. Julianne Ponce MD PGY-1 Internal Medicine
[2024-11-13] MEDS: MORPHINE SULF INJ 10 MG/ML VIAL IVP ×3 (06:44→17:20)
[2024-11-13 06:48] LABS: Anion Gap 13 (7-16); BUN/Creatinine Ratio 17 Ratio (12-20); Blood Urea Nitrogen < 5 mg/dL (9-23); Calcium 8.5 mg/dL (8.3-10.6); Carbon Dioxide 22.8 mMol/L (20.0-31.0); Chloride 104 mMol/L (98-107); Creatinine (Component) 0.3 mg/dL (0.6-1.3); Estimated Creatinine Clearance 178.4 mL/min (>60); Glucose 89 mg/dL (74-106); Magnesium 1.3 mg/dL (1.6-2.6); Osmolality,Calculated 275 (275-295); Potassium 3.7 mMol/L (3.4-5.1); Sodium 140 mMol/L (136-145); eGFR > 60 See Note
[2024-11-13 07:23] LABS: Lactate (Lactic Acid) 1.0 mMol/L (0.4-2.0)
[2024-11-13 07:47] LABS: Troponin I < 0.020 ng/mL (0.0-0.045)
[2024-11-13] MEDS: Magnesium Sulfate 4 GM Ivpb 4 GM/50 ML BAG IV (08:16)
[2024-11-13] MEDS: RINGERS LACTATED 1000 ML 1,000 ML 80 ML IV (08:26)
--- NOTE | 2024-11-13 09:20 | ESPR_ITS ---
<Statement entered by Katina Coelho MD - 11/13/24 15:38> Patient was seen and examined at bedside. I agree on the assessment and plan on this note as documented by resident Veronica Dixon PGY1. Patient had rapid response earlier this morning, desatted to low 80s, chest x- ray shows significant left base pneumonia, at bedside patient noted to have excessive secretions we will start patient on Mucomyst along with DuoNeb breathing treatments every 4 hours, Chest Physiotherapy, vancomycin discontinued, repeat blood cultures are negative, will also start patient on guaifenesin as needed, patient at bedside complains of significant abdominal pain added morphine 1 mg every 8 hours for breakthrough pain. Started patient on bowel regimen as well. Will continue to hold tube feeds, patient will likely undergo GI intervention during the hospitalization once fairly stable. Patient's family informed about the underlying breast mass. Electrolytes replaced and corrected. Disposition telemetry, wean off FiO2 as tolerated, back to baseline settings. Pending GI workup. Case discussed with attending Dr. Chase Coelho MD PGY-2 Documentation for date of: 11/13/24 Subjective Subjective Interval history: This morning rapid response called for desaturation to 80% on FiO2 30%. FiO2 was increased to 100 with improvement in desaturation, however when weaned down to 40% FiO2 desaturated once again. Repeat EKG showed sinus tachycardia, chest x-ray showed left base consolidation, troponins negative and lactate 1.0. Now saturating 98% on 58% FiO2. Patient eventually weaned down to 40% FiO2. Receiving morphine for abdominal pain. Dr. Toure plans for EGD. Spoke to family about right breast mass, spoke to caregiver Jeana on the phone who said she has been worked up and biopsied in the past, no malignant findings, and is due for mammogram but patient was hospitalized. Exam Vital Signs Temp Pulse Resp BP Pulse Ox O2 Del Method FiO2 97.9 F 90 21 H 153/79 H 93 L Mechanical Ventilation 58 11/13/24 08:00 11/13/24 08:00 11/13/24 08:00 11/13/24 08:00 11/13/24 08:00 11/13/24 08:00 11/13/24 08:00 Narrative Exam GENERAL: AOx3, no acute distress, trach tube in place on mechanical ventilator HEENT: NC/AT, mucous membranes moist, bilateral sclera anicteric CARDIOVASCULAR: regular rate and rhythm, S1/S2 present, no murmurs appreciated PULMONARY: clear to auscultation bilaterally, bronchial breath sounds ABDOMINAL: soft, non-distended, no rebound/guarding, bowel sounds present, +e pigastric tenderness EXTREMITIES: no peripheral edema SKIN: warm and dry, intact, no rashes NEURO: alert, following commands, 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 Objective Labs 11/13/24 06:02 11/13/24 06:02 Labs: Laboratory Results - last 24 hr 11/12/24 11/13/24 11/13/24 13:59 06:02 07:05 WBC 6.5 RBC 3.02 L Hgb 9.4 L 9.8 L Hct 27.3 L 29.0 L MCV 96 MCH 32.5 MCHC 33.8 RDW Std Deviation 52.9 H Plt Count 242 Neut % (Auto) 65 Lymph % (Auto) 26 [place] % (Auto) 5 Eos % (Auto) 3 Baso % (Auto) 0 Neut # (Auto) 4.2 Lymph # (Auto) 1.7 [place] # (Auto) 0.4 Eos # (Auto) 0.2 Baso # (Auto) 0.0 Immature Gran # (Auto) 0.04 H Absolute Nucleated RBC 0.00 Immature Gran % 1 H Nucleated RBC % 0 Sodium 140 Potassium 3.7 Chloride 104 Carbon Dioxide 22.8 Anion Gap 13 BUN < 5 L Creatinine 0.3 L Estim Creat Clear Calc 178.4 eGFR > 60 BUN/Creatinine Ratio 17 Glucose 89 Calculated Osmolality 275 Lactic Acid 1.0 Calcium 8.5 Magnesium 1.3 L Troponin I < 0.020 Blood Type O Positive Antibody Screen NEGATIVE Blood Bank Wristband ID Yes ABG Interpretation ABG results: 11/11/24 04:22 ABG pH 7.46 H ABG pCO2 43 ABG pO2 78 L ABG HCO3 30 H ABG O2 Saturation 97 ABG Base Excess 6 H Quality Measures Quality Measures none Advance care planning discussed with:: patient and spouse Assessment & Plan Assessment Current Active Medications: Generic Name Dose Route Start Last Admin Trade Name Freq PRN Reason Stop Dose Admin Acetaminophen 650 mg 11/10/24 20:23 11/11/24 09:42 Acetaminophen 325 Mg Tablet PO 12/10/24 20:22 650 mg Q4HR PRN Administration PAIN SCALE 1-3 (mild Acetaminophen 650 mg 11/10/24 20:23 Acetaminophen Supp 650 Mg Supp NE 12/10/24 20:22 Q4HR PRN PAIN SCALE 1-3 (mild Al Hydrox/Mg Hydrox/Simethicone 30 ml 11/10/24 20:23 11/11/24 12:37 Mg Hyd/Al Hyd/Zhang (Maalox Reg) Susp 30 Ml Udc PO 12/10/24 20:22 30 ml Q4HR PRN Administration Heartburn or Upset Stomach Aspirin 81 mg 11/12/24 09:00 11/12/24 08:21 Aspirin 81 Mg Chew GT 12/12/24 08:59 81 mg QDAY KWAME Administration Atorvastatin Calcium 40 mg 11/11/24 21:00 11/12/24 22:24 Atorvastatin Calcium 20 Mg Tablet GT 12/11/24 20:59 40 mg HS KWAME Administration Dextrose 25 ml 11/10/24 22:06 Dextrose 50%-Water Inj 50 Ml Syringe IV 12/10/24 22:05 Q15MIN PRN BG 50-70 responsive npo pt Dextrose 50 ml 11/10/24 22:06 Dextrose 50%-Water Inj 50 Ml Syringe IV 12/10/24 22:05 Q15MIN PRN BG <50 OR BG <70 & pt unresponsive Duloxetine HCl 30 mg 11/12/24 09:00 11/12/24 08:21 Duloxetine Hcl 30 Mg Capsule GT 12/12/24 08:59 30 mg QDAY KWAME Administration Gabapentin 600 mg 11/11/24 09:45 11/13/24 05:54 Gabapentin 300 Mg Capsule GT 12/11/24 09:44 600 mg TID KWAME Administration Glucagon 1 mg 11/10/24 22:06 Glucagon Inj 1 Mg Vial IM Q15MIN PRN BG <70, and no IV access Heparin Sodium (Porcine) 5,000 unit 11/10/24 22:00 11/13/24 05:55 Heparin Sod Inj 5000 Unit/Ml Vial SC 11/24/24 21:59 5,000 unit Q8HR KWAME Administration Cefepime HCl 2 gm/ Sodium 50 mls @ 100 mls/hr 11/11/24 01:00 11/13/24 05:54 Chloride IV 11/18/24 00:59 100 mls/hr Q8HR KWAME Administration Lactated Ringer's 1,000 mls @ 80 mls/hr 11/11/24 15:59 11/13/24 08:26 Lactated Ringers IV 12/11/24 15:58 80 mls/hr .[id number] KWAME Administration Vancomycin HCl 200 mls @ 120 mls/hr 11/13/24 10:00 Vancomycin/Water 1gm Ivpb IV 11/20/24 09:59 Q12H KWAME Protocol Magnesium Sulfate 4 gm in 50 mls @ 12.5 mls/hr 11/13/24 07:59 11/13/24 08:16 Magnesium Sulfate Ivpb IV 11/13/24 11:58 12.5 mls/hr X1 ONE Administration Insulin Human Lispro 0 unit 11/11/24 00:00 11/13/24 05:54 Insulin Lispro (Admelog) 1 Unit/0.01 Ml Unit SC 12/11/24 00:00 Not Given Q6HR KWAME Protocol Lorazepam 0.5 mg 11/11/24 21:46 11/12/24 20:51 Lorazepam 0.5 Mg Tablet GT 11/16/24 21:45 0.5 mg Q8HR PRN Administration ANXIETY Magnesium Hydroxide 30 ml 11/10/24 20:23 Milk Of Magnesia Susp 30 Ml Udc PO 12/10/24 20:22 QDAY PRN CONSTIPATION Morphine Sulfate 10 mg 11/11/24 09:56 11/13/24 06:27 Morphine Sulf Liqd 10 Mg/5 Ml Udc PO 11/16/24 09:55 10 mg Q4HR PRN Administration Pain 7-10 Ondansetron HCl 4 mg 11/10/24 15:19 11/10/24 16:29 Ondansetron Inj 2 Mg/Ml Inj 2 Ml IVP 12/10/24 15:18 4 mg Q6HR PRN Administration NAUSEA OR VOMITING Pantoprazole Sodium 40 mg 11/11/24 16:00 11/13/24 08:15 Pantoprazole Inj 40 Mg Vial IVP 12/11/24 15:59 40 mg QDAY KWAME Administration Pharmacy Consult 1 each 11/10/24 15:19 Pharmacy Renal Dose Adjustment 1 Ea XX 12/10/24 15:18 PRN PRN CONSULT Pharmacy Consult 1 each 11/12/24 16:15 Vancomycin Pharmacy To Dose 1 Each Each IV 12/12/24 16:14 QDAY PRN PROTOCOL Plan Mello Cohen is a 69F 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 #Acute on Chronic Respiratory Failure, mechanically ventilated on trach collar #Pneumonia #UTI, Klebsiella #Sepsis shock, resolved likely 2/2 #Lactic acidosis, resolved Patiently initially presented with fever of 102, tachycardia, tachypnea and elevated WBC at 11.4 on admission. Suspicion for PNA high as CXR showing significant pneumonia at left base and with acute development of respiratory failure. CTAP showed significant bibasilar pneumonia, large right breast mass, suspicious for mild pancreatitis, normal appendix UA showed turbid, +LE and nitries, 3+ bacteria and 51 WBC Patient denies any current or previous urinary symptoms such as pain on urination, suprapubic pain, increased frequency or urgency. Lactic acid 3.4 on admission, decreased 2.7 and 1.3 s/p 3L LR s/p Vancomycin (11/10, 11/13), Zosyn (11/10) BCx on admission NGTD, sputum stain GNR but 10-25 epithelial cells so possible contamination, MRSA nares neg Subacute facility BCx / grew GPC, likely contamination UCx grew Klebsiella pneumoniae Rapid response 11/13 for oxygen desaturation requiring higher FiO2 on vent. Repeat EKG showed sinus tachycardia, lactate 1.0, troponin wnl, suctioning done and significant mucus removed. Plan: - Continue Cefepime (11/11- - Stop Vanc - CTM vitals, O2 sat and trend WBC - Start NAC with Duonebs q4h for secretions - Chest PT ordered #Chronic Abdominal Pain #Gastritis, likely #Suspicion of pancreatitis, low #Suspicion GIB Has chronic abdominal pain that was to be worked up outpatient by Dr. Toure for possible gastritis. On 11/11, developed 6/10 epigastric pain that started about 45 minutes prior to tube feed. With CTAP finding showing suspicion for mild pancreatitis with mild edema around the pancreas, initial suspicion for pancreatitis however low as abdominal pain has been chronic and not resolved post fluids. 11/10 Lipase wnl 22, Ca 8.8, lipid panel trig wnl, LDL wnl, cholesterol low, HDL low s/p 3L LR in ED Hgb dropped from 12.3 to 9.0, repeat H&H 9.4/27.3. Denies dark stools or hematochezia during current admisison. Per social work, patient was already planned to do outpatient EGD and colonoscopy for gastritis and abdominal pain. 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 Cannot communicate verbally, blinks twice for yes and once for no. Plan: - Continue ASA 81 mg daily and atorvastatin 40 mg nightly #Chronic respiratory failure, mechanically ventilated on trach collar Patient is mechanically ventilated with tracheostomy likely 2/2 multiple CVAs. Is here from subacute facility and is mechanically ventilated, never on blow-by oxygen. 11/11 RT contacted for Shiley collar adjustment. Plan: - Continue mechanical ventilation through tracheostomy - CTM O2 saturation - Acute management as above #Prolonged QTc, resolved likely 2/2 hypomagnesemia On admission QTc was 473 on EKG. Likely due to septic shock and possible hypomagnesemia. QTc not prolonged on previous EKG in 10/2024, 414. Repeat 11/12 EKG QTc 354, wnl. Plan: - CTM tele - Replete electrolytes as below - Avoid QTc prolongation agents #HTN Hold home hypertensive iso recent recovery from septic shock and current systolic BP 115-125 off BP meds. Plan: - Consider restarting home BP meds if becomes hypertensive - CTM vitals #Insulin-dependent type 2 diabetes At home uses 10 units of glargine and Trulicity. 11/11/24 HbA1c 6.2. Plan: - SSI - CTM glucose #Hypomagnesemia On admission magnesium 1.5. s/p Mg sulfate 4g x2. Mg 1.7, 1.3 Plan: - Keep Mg >2 at all times - Check and replete as necessary - Repleted Mg 4 g #Anxiety #Depression Patient has a history of anxiety and depression. Has lorazepam 0.5 mg as needed for anxiety and duloxetine 30 mg daily for depression. Plan: - Continue duloxetine 30 mg daily - Consider restarting home dose lorazepam as needed for anxiety #Breast Mass 11/10 CTAP showed large Rt breast mass, also seen on R breast sonogram 10/04/24. Notified family and caregiver is aware. Has been worked up in the past and biopsied, non-malignant. Is due for mammogram. Plan: - Recommend to continue work up outpatient Hospital management: Lines: peripheral IV, PEG tube Diet: Glucerna PEG tube GI prophylaxis: IV Pantoprazole 40 QD DVT prophylaxis: Heparin q8 Disposition: tele for continuation of abx CODE STATUS: Full code Plan of care discussed with attending Dr. Stone, and PGY-2 Dr. Coelho. Veronica Dixon DO PGY-1 Internal Medicine Attending Provider Attestation/Addendum Angeles Walter DO, attest that I was physically present for the guerra portions of the service and evaluated the patient with the resident and I reviewed and discussed the case with the resident and agree with the resident's findings and plans of care as documented above Patient seen and eval this a.m. Patient had a rapid response overnight due to desaturation requiring increase in FiO2 on ventilator with 60%. Patient at baseline uses about 30%. On of examination, patient was titrated down to FiO2 of 40%. She appears to have pain in her epigastric region on palpation. Patient is able to gesture with her eyes/blinking. She is also noted to have thick secretions noted on suctioning. Will start patient on chest PT and mucolytic's. Titrate O2 as tolerated. Patient is to undergo GI studies due to chronic epigastric pain. Will restart home pain medications due to concern for withdrawal. Family was also informed regarding finding of breast mass and will need to follow-up outpatient for further studies.
[2024-11-13 10:55] LABS: Lactate (Lactic Acid) 0.9 mMol/L (0.4-2.0)
[2024-11-13] MEDS: ALBUTEROL/IPRATROPIUM (Duoneb) RT SOL 3 ML NEBU INH ×3 (11:01→22:10)
[2024-11-13] MEDS: ACETYLCYSTEINE SOL 20% 4 ML NEBU 3 ML INH ×3 (11:01→22:09)
--- NOTE | 2024-11-13 11:53 | XR_ITS ---
Examination: Duplex scan of the lower extremity, unilateral left Date and time of exam: November 13, 2024 1302 hours INDICATIONS: Onset leg swelling today Technique: Duplex scan of the extremity veins using B-mode/grayscale imaging and Doppler spectral analysis and color flow Attention is directed to internal echogenicity, compression and augmentation involving these veins, color flow assessment, spectral analysis Findings: Major deep venous structures in the extremity demonstrate normal course and caliber. There is no evidence of deep vein thrombosis. Normal color flow and spectral analysis Impression: Negative for DVT..
--- NOTE | 2024-11-13 13:51 | PC.SS ---
SS update: patient on IV antibiotics is from subacute. pending GI recommendation.
--- NOTE | 2024-11-13 19:35 | SUR.PHASEI ---
Pt. arrived to recovery via bed, eyes closed, pt. is resting, non-verbal, responds to physical touch, VSS, lung sounds diminished at bases, pt. is mechanically ventilated, Fi02 at 34%, equal expansion uzma., RT Sascha at bedside. Report received from Luanne MCGREGOR and Santa INFANTE.
--- NOTE | 2024-11-13 20:10 | SUR.PHASEI ---
Pt. transferred to room 269 via bed with RT. VSS, no s/s of pain or nausea noted, IV flushed and locked, Nanette RN assumed care of pt.
[2024-11-13] MEDS: MORPHINE SULF INJ 10 MG/ML VIAL 2 MG IVP (20:46)
[2024-11-13] MEDS: ATORVASTATIN CALCIUM 20 MG TABLET 40 MG GT (22:27)
[2024-11-13] MEDS: NA SU/NAHCO3/KC/PEG (Golytely) 4,000 ML BTL 4000 ML GT (22:27)
[2024-11-14] VITALS (22 sets, daily range): BP systolic 106–189; BP diastolic 50–99; PULSE 74–155; RESP 11–33; TEMP 36.2–37.7; O2SAT 92–100; BMI 35.5
[2024-11-14] MEDS: guaiFENesin SYRUP 200 MG/10 ML UDC PO (00:19)
[2024-11-14] MEDS: ACETYLCYSTEINE SOL 20% 4 ML NEBU 3 ML INH ×3 (02:53→11:22)
[2024-11-14] MEDS: ALBUTEROL/IPRATROPIUM (Duoneb) RT SOL 3 ML NEBU INH ×4 (02:53→14:52)
[2024-11-14] MEDS: MORPHINE SULF INJ 10 MG/ML VIAL 2 MG IVP ×2 (04:18→10:46)
[2024-11-14] MEDS: GABAPENTIN 300 MG CAPSULE 600 MG GT ×3 (05:29→21:08)
[2024-11-14] MEDS: HEPARIN SOD INJ 5000 UNIT/ML VIAL SC ×3 (05:29→21:08)
[2024-11-14] MEDS: CEFEPIME INJ 2 GM in SODIUM CHLORIDE 0.9% (Popper) 50 ML IV ×3 (05:29→21:07)
[2024-11-14 06:03] LABS: Basophils # (Auto) 0.0 Thou/mm3 (0.0-0.2); Basophils % (Auto) 0 % (0-2.5); Eosinophils # (Auto) 0.1 Thou/mm3 (0.0-0.5); Eosinophils % (Auto) 1 % (0-10); Hematocrit 26.2 % (36.0-46.0); Immature Granulocytes Auto 0.04 Thou/mm3 (0.00-0.00); Lymphocytes # (Auto) 1.3 Thou/mm3 (1.0-4.8); Lymphocytes % (Auto) 12 % (10-50); Mean Corpuscular HGB Conc 32.8 g/dl (31.0-37.0); Mean Corpuscular Hemoglobin 31.4 pg (25.0-35.0); Mean Corpuscular Volume 96 fL (80-100); Monocytes # (Auto) 0.5 Thou/mm3 (0.0-0.8); Monocytes % (Auto) 4 % (0-12); Neutrophils # (Auto) 8.6 Thou/mm3 (1.8-7.7); Neutrophils % (Auto) 82 % (37-80); Nucleated Red Blood Cell # 0.00 Thou/mm3 (0.00-0.00); Nucleated Red Blood Cell % 0 /100 WBC (0); Platelet Count 255 Thou/mm3 (140-440); RDW Standard Deviation 53.8 fL (36.4-46.3); Red Blood Count 2.74 Miln/mm3 (4.00-5.20); White Blood Count 10.4 Thou/mm3 (3.6-11.0)
[2024-11-14 06:04] LABS: Hemoglobin 8.6 g/dL (12.0-16.0)
[2024-11-14 06:38] LABS: Alanine Aminotransferase < 7 U/L (10-49); Albumin, Serum 3.4 gm/dL (3.4-4.8); Albumin/Globulin Ratio 1.6 (1.2-2.2); Alkaline Phosphatase 59 U/L (46-116); Anion Gap 14 (7-16); Aspartate Amino Transferase 11 U/L (0-34); BUN/Creatinine Ratio 15 Ratio (12-20); Bilirubin,Total 0.5 mg/dL (0.3-1.2); Blood Urea Nitrogen 6 mg/dL (9-23); Calcium 8.1 mg/dL (8.3-10.6); Calcium (Corrected) 8.6 mg/dL (8.5-10.1); Carbon Dioxide 24.4 mMol/L (20.0-31.0); Chloride 102 mMol/L (98-107); Creatinine (Component) 0.4 mg/dL (0.6-1.3); Estimated Creatinine Clearance 133.5 mL/min (>60); Globulin 2.1 gm/dL (2.3-3.5); Glucose 139 mg/dL (74-106); Magnesium 1.6 mg/dL (1.6-2.6); Osmolality,Calculated 279 (275-295); Potassium 3.2 mMol/L (3.4-5.1); Sodium 140 mMol/L (136-145); Total Protein 5.5 gm/dL (5.7-8.2); eGFR > 60 See Note
--- NOTE | 2024-11-14 07:46 | ESPR_ITS ---
<Statement entered by Michelle Ann MD - 11/19/24 14:36> I reviewed above note and agree with findings and plans. I have also personally examined the patient with medicine team and went over assessment and plan with medical team including resident intern and resident physician. <Statement entered by Katina Coelho MD - 11/15/24 12:50> Patient was seen and examined at bedside. I agree on the assessment and plan on this note as documented by resident Veronica Dixon PGY1. Patient had rapid response called earlier today, we have adjusted the pain and anxiety regimen for the patient, was asynchronous with the vent stable now. Will continue scheduled Mucomyst DuoNeb and chest physiotherapy, wean FiO2 down for goal SPO22 greater than. Otherwise patient is on GoLytely prep for colonoscopy, EGD yesterday was revealing of gastritis. Will continue cefepime, cultures showed sensitivity to levofloxacin, will plan discharge on Levaquin. Did have prolonged QTc on presentation, while patient is on levofloxacin, avoid any other QT prolongation drugs. Otherwise disposition likely discharge in a.m. post colonoscopy with benign findings. Case discussed with attending Dr. Marissa Coelho MD PGY-2 Documentation for date of: 11/14/24 Subjective Subjective Interval history: No acute overnight events. Patient seen and examined at bedside. Endorses 8/10 epigastric abdominal pain despite pain regimen. Denies chest pain, lower extremity pain or urinary symptoms. Last bowel movement this morning, watery stool with no blood. Rapid response was called later in the afternoon for tachypnea and tachycardia of 140s, and patient was restarted on morphine 10 mg liquid, started on Ativan 1 mg 3 times daily, and will continue morphine 2 mg IV every 6 hours as needed. Continue scheduled Mucomyst and DuoNebs, as patient is saturating well on FiO2 of 30% and rapid was likely due to inadequate pain control. Patient finished GoLytely prep and is scheduled for colonoscopy today. EGD yesterday showed gastritis. Exam Vital Signs Temp Pulse Resp BP Pulse Ox O2 Del Method FiO2 97.8 F 98 24 H 123/72 100 Mechanical Ventilation 30 11/14/24 04:11 11/14/24 06:39 11/14/24 06:39 11/14/24 04:11 11/14/24 06:39 11/14/24 04:11 11/14/24 06:39 Narrative Exam GENERAL: AOx3, no acute distress, trach tube in place on mechanical ventilator HEENT: NC/AT, mucous membranes moist, bilateral sclera anicteric CARDIOVASCULAR: regular rate and rhythm, S1/S2 present, no murmurs appreciated PULMONARY: clear to auscultation bilaterally, bronchial breath sounds ABDOMINAL: soft, non-distended, no rebound/guarding, bowel sounds present, ++e pigastric tenderness EXTREMITIES: no peripheral edema SKIN: warm and dry, intact, no rashes NEURO: alert, following commands, 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 Objective Labs 11/14/24 05:33 11/14/24 05:33 Labs: Laboratory Results - last 24 hr 11/13/24 11/13/24 11/14/24 07:05 10:50 05:33 WBC 10.4 RBC 2.74 L Hgb 8.6 L Hct 26.2 L MCV 96 MCH 31.4 MCHC 32.8 RDW Std Deviation 53.8 H Plt Count 255 Neut % (Auto) 82 H Lymph % (Auto) 12 [place] % (Auto) 4 Eos % (Auto) 1 Baso % (Auto) 0 Neut # (Auto) 8.6 H Lymph # (Auto) 1.3 [place] # (Auto) 0.5 Eos # (Auto) 0.1 Baso # (Auto) 0.0 Immature Gran # (Auto) 0.04 H Absolute Nucleated RBC 0.00 Immature Gran % 0 Nucleated RBC % 0 Sodium 140 Potassium 3.2 L D Chloride 102 Carbon Dioxide 24.4 Anion Gap 14 BUN 6 L Creatinine 0.4 L Estim Creat Clear Calc 133.5 eGFR > 60 BUN/Creatinine Ratio 15 Glucose 139 H D Calculated Osmolality 279 Lactic Acid 0.9 Calcium 8.1 L Corrected Calcium 8.6 Magnesium 1.6 Total Bilirubin 0.5 AST 11 ALT < 7 L Alkaline Phosphatase 59 Troponin I < 0.020 Total Protein 5.5 L Albumin 3.4 Globulin 2.1 L Albumin/Globulin Ratio 1.6 ABG Interpretation ABG results: 11/11/24 04:22 ABG pH 7.46 H ABG pCO2 43 ABG pO2 78 L ABG HCO3 30 H ABG O2 Saturation 97 ABG Base Excess 6 H Quality Measures Quality Measures none Advance care planning discussed with:: patient and spouse Assessment & Plan Assessment Current Active Medications: Generic Name Dose Route Start Last Admin Trade Name Freq PRN Reason Stop Dose Admin Acetaminophen 650 mg 11/10/24 20:23 11/11/24 09:42 Acetaminophen 325 Mg Tablet PO 12/10/24 20:22 650 mg Q4HR PRN Administration PAIN SCALE 1-3 (mild Acetaminophen 650 mg 11/10/24 20:23 Acetaminophen Supp 650 Mg Supp NE 12/10/24 20:22 Q4HR PRN PAIN SCALE 1-3 (mild Acetylcysteine 3 ml 11/13/24 11:00 11/14/24 06:37 Acetylcysteine Teresa 20% 4 Ml Nebu INH 12/13/24 10:59 3 ml Q4HRRT KWAME Administration Al Hydrox/Mg Hydrox/Simethicone 30 ml 11/10/24 20:23 11/11/24 12:37 Mg Hyd/Al Hyd/Zhang (Maalox Reg) Susp 30 Ml Udc PO 12/10/24 20:22 30 ml Q4HR PRN Administration Heartburn or Upset Stomach Albuterol/Ipratropium 3 ml 11/13/24 11:00 11/14/24 06:37 Albuterol/Ipratropium (Duoneb) Rt Teresa 3 Ml Nebu INH 12/13/24 10:59 3 ml Q4HRRT KWAME Administration Aspirin 81 mg 11/12/24 09:00 11/13/24 11:02 Aspirin 81 Mg Chew GT 12/12/24 08:59 Not Given QDAY KWAME Atorvastatin Calcium 40 mg 11/11/24 21:00 11/13/24 22:27 Atorvastatin Calcium 20 Mg Tablet GT 12/11/24 20:59 40 mg HS KWAME Administration Dextrose 25 ml 11/10/24 22:06 Dextrose 50%-Water Inj 50 Ml Syringe IV 12/10/24 22:05 Q15MIN PRN BG 50-70 responsive npo pt Dextrose 50 ml 11/10/24 22:06 Dextrose 50%-Water Inj 50 Ml Syringe IV 12/10/24 22:05 Q15MIN PRN BG <50 OR BG <70 & pt unresponsive Duloxetine HCl 30 mg 11/12/24 09:00 11/13/24 11:02 Duloxetine Hcl 30 Mg Capsule GT 12/12/24 08:59 Not Given QDAY KWAME Gabapentin 600 mg 11/11/24 09:45 11/14/24 05:29 Gabapentin 300 Mg Capsule GT 12/11/24 09:44 600 mg TID KWAME Administration Glucagon 1 mg 11/10/24 22:06 Glucagon Inj 1 Mg Vial IM Q15MIN PRN BG <70, and no IV access Guaifenesin 200 mg 11/13/24 13:05 11/14/24 00:19 Guaifenesin Syrup 200 Mg/10 Ml Udc PO 12/13/24 13:04 200 mg QID PRN Administration CONGESTION Protocol Heparin Sodium (Porcine) 5,000 unit 11/10/24 22:00 11/14/24 05:29 Heparin Sod Inj 5000 Unit/Ml Vial SC 11/24/24 21:59 5,000 unit Q8HR KWAME Administration Cefepime HCl 2 gm/ Sodium 50 mls @ 100 mls/hr 11/11/24 01:00 11/14/24 05:29 Chloride IV 11/18/24 00:59 100 mls/hr Q8HR KWAME Administration Magnesium Sulfate 4 gm in 50 mls @ 12.5 mls/hr 11/14/24 07:44 Magnesium Sulfate Ivpb IV 11/14/24 11:43 X1 ONE Insulin Human Lispro 0 unit 11/11/24 00:00 11/14/24 05:28 Insulin Lispro (Admelog) 1 Unit/0.01 Ml Unit SC 12/11/24 00:00 Not Given Q6HR [facility] Protocol Lorazepam 0.5 mg 11/11/24 21:46 11/14/24 00:19 Lorazepam 0.5 Mg Tablet GT 11/16/24 21:45 0.5 mg Q8HR PRN Administration ANXIETY Magnesium Hydroxide 30 ml 11/10/24 20:23 Milk Of Magnesia Susp 30 Ml Udc PO 12/10/24 20:22 QDAY PRN CONSTIPATION Morphine Sulfate 2 mg 11/13/24 17:06 11/14/24 04:18 Morphine Sulf Inj 10 Mg/Ml Vial IVP 11/18/24 17:05 2 mg Q6HR PRN Administration Pain 7-10 Ondansetron HCl 4 mg 11/10/24 15:19 11/10/24 16:29 Ondansetron Inj 2 Mg/Ml Inj 2 Ml IVP 12/10/24 15:18 4 mg Q6HR PRN Administration NAUSEA OR VOMITING Pantoprazole Sodium 40 mg 11/11/24 16:00 11/13/24 08:15 Pantoprazole Inj 40 Mg Vial IVP 12/11/24 15:59 40 mg QDAY [facility] Administration Pharmacy Consult 1 each 11/10/24 15:19 Pharmacy Renal Dose Adjustment 1 Ea XX 12/10/24 15:18 PRN PRN CONSULT Polyethylene Glycol 17 gm 11/14/24 09:00 Polyethylene Glycol 17 Gm Packet PO 12/14/24 08:59 QDAY [facility] Sennosides 1 tab 11/13/24 13:15 11/13/24 13:47 Senna/Docusate Sod 1 Tab Tablet PO 12/13/24 13:14 Not Given QDAY [facility] Protocol Plan Mello Cohen is a 69F 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 #Acute Chronic Abdominal Pain #Gastritis #Suspicion of pancreatitis, low Has chronic abdominal pain that was to be worked up outpatient by Dr. Toure for possible gastritis. On 11/11, developed 6/10 epigastric pain that started about 45 minutes prior to tube feed. With CTAP finding showing suspicion for mild pancreatitis with mild edema around the pancreas, initial suspicion for pancreatitis however low as abdominal pain has been chronic and not resolved post fluids. 11/10 Lipase wnl 22, Ca 8.8, lipid panel trig wnl, LDL wnl, cholesterol low, HDL low s/p 3L LR in ED 11/13 EGD showed gastritis without bleeding, biopsies were taken. Plan: -- GI consulted, recs appreciated: Mayuri, scheduled for colonoscopy today - Liquid Morphine 10 mg q6h, morphine 2mg q6h prn for breakthrough pain - Start Lorazepam 1 mg TID - Increase IV Pantoprazole 40 mg from QD to BID #Acute on Chronic Respiratory Failure, mechanically ventilated on trach collar #Klebsiella and Pseudomonas Pneumonia #Klebsiella UTI #Sepsis shock, resolved likely 2/2 Patiently initially presented with fever of 102, tachycardia, tachypnea and elevated WBC at 11.4 on admission. Suspicion for PNA high as CXR showing significant pneumonia at left base and with acute development of respiratory failure. CTAP showed significant bibasilar pneumonia, large right breast mass, suspicious for mild pancreatitis, normal appendix UA showed turbid, +LE and nitries, 3+ bacteria and 51 WBC Lactic acid 3.4 on admission, decreased 2.7 and 1.3 s/p 3L LR s/p Vancomycin (11/10, 11/13), Zosyn (11/10) BCx on admission NGTD, sputum stain GNR but 10-25 epithelial cells so possible contamination, MRSA nares neg Subacute facility BCx 1/2 grew GPC, likely contamination UCs grew klebsiella sensitive to cefepime. Sputum Cx grew klebsiella pneumoniae and pseudomonas aeruginosa both sensitive to cefepime. 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 Cannot communicate verbally, blinks twice for yes and once for no. Plan: - Continue ASA 81 mg daily and atorvastatin 40 mg nightly #Chronic respiratory failure, mechanically ventilated on trach collar Patient is mechanically ventilated with tracheostomy likely 2/2 multiple CVAs. Is here from subacute facility and is mechanically ventilated, never on blow-by oxygen. 11/11 RT contacted for Shiley collar adjustment. Plan: - Continue mechanical ventilation through tracheostomy - CTM O2 saturation - Acute management as above #Prolonged QTc, resolved likely 2/2 hypomagnesemia On admission QTc was 473 on EKG. Likely due to septic shock and possible hypomagnesemia. QTc not prolonged on previous EKG in 10/2024, 414. Repeat 11/12 EKG QTc 354, wnl. Plan: - CTM tele - Replete electrolytes as below - Avoid QTc prolongation agents #HTN Hold home hypertensive iso recent recovery from septic shock and current systolic BP 115-125 off BP meds. Plan: - Consider restarting home BP meds if becomes hypertensive - CTM vitals #Insulin-dependent type 2 diabetes At home uses 10 units of glargine and Trulicity. 11/11/24 HbA1c 6.2. Plan: - SSI - CTM glucose #Hypomagnesemia On admission magnesium 1.5. s/p Mg sulfate 4g x2. Mg 1.7, 1.3, 1.6 Plan: - Keep Mg >2 at all times - Check and replete as necessary - Repleted Mg 4 g #Anxiety #Depression Patient has a history of anxiety and depression. Has lorazepam 0.5 mg as needed for anxiety and duloxetine 30 mg daily for depression. Plan: - Continue duloxetine 30 mg daily - Lorazepam as above #Breast Mass 11/10 CTAP showed large Rt breast mass, also seen on R breast sonogram 10/04/24. Notified family and caregiver is aware. Has been worked up in the past and biopsied, non-malignant. Is due for mammogram per caregiver. Plan: - Recommend to continue work up outpatient Hospital management: Lines: peripheral IV, PEG tube Diet: Glucerna PEG tube GI prophylaxis: IV Pantoprazole 40 BID DVT prophylaxis: Heparin q8 Disposition: tele for continuation of abx CODE STATUS: Full code Plan of care discussed with attending Dr. Ann, and PGY-2 Dr. Coelho. Veronica Dixon, DO PGY-1 Internal Medicine
[2024-11-14] MEDS: ASPIRIN 81 MG CHEW GT (08:18)
[2024-11-14] MEDS: POTASSIUM CHLORIDE 10% 20 MEQ/15 ML UDC 40 MEQ GT ×2 (08:18→12:59)
[2024-11-14] MEDS: DULoxetine HCL 30 MG CAPSULE GT (08:19)
[2024-11-14] MEDS: Magnesium Sulfate 4 GM Ivpb 4 GM/50 ML BAG IV (08:19)
[2024-11-14] MEDS: NA SU/NAHCO3/KC/PEG (Golytely) 4,000 ML BTL 4000 ML GT (09:53)
[2024-11-14] MEDS: MORPHINE SULF LIQD 10 MG/5 ML UDC PO ×3 (10:24→22:56)
--- NOTE | 2024-11-14 11:07 | PC.SS ---
Follow up note: Pending Colonoscopy. On IV antibiotic. Pt will return to [facility] [place].
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
[2024-11-14] MEDS: METOPROLOL TARTRATE INJ 1 MG/ML AMP 5 ML 2.5 MG IVP (12:09)
[2024-11-14] MEDS: MIDAZOLAM INJ 1 MG/ML VIAL 2 ML IVP (12:13)
--- NOTE | 2024-11-14 12:15 | XR_ITS ---
Examination: AP chest single view Technique one AP portable upright chest single view Date and time: November 24, 2024 1226 hours Comparison November 13, 2024 Indications: Chest pain today. Acute hypoxic respiratory failure FINDINGS: Significant left perihilar left basilar pneumonia Normal heart size Tracheostomy tube tip 6.2 cm above ever IMPRESSION: Significant left lung pneumonia
[2024-11-14] MEDS: MIDAZOLAM INJ 1 MG/ML VIAL 2 ML 2 MG IVP (12:20)
--- NOTE | 2024-11-14 13:35 | EVENTNT_ITS ---
<Statement entered by Katina Coelho MD - 11/14/24 15:33> Patient was seen and examined at bedside. I agree on the assessment and plan on this note as documented by resident Veronica Dixon PGY1. Rapid response called for tachycardia, patient noted to have heart rate in 140s, telemetry strip showed likely sinus tachycardia, however EKG was unavailable patient was given metoprolol 2.5 mg x 1, blood pressure was permissible. Patient seems to be in acute distress, unable to verbalize due to being chronically trached and PEG placement secondary to locked-in syndrome s/p CVA, administered 1 mg Versed x 1 improved mechanical ventilation asynchrony, was given additional 2 mg Versed x 1. Patient discomfort improved significantly, patient resting well in bed, seen about 2 hours later. EKG was obtained showed sinus tachycardia, chest x-ray obtained showed tracheostomy tube in good position, no evidence of any new pneumonia. Will continue to monitor patient, disposition telemetry continue IV antibiotics. No ABG Obtained patient was sPO2 > 92 throughout the rapid. Case discussed with attending Dr. Marissa Coelho MD PGY-2 Documentation for date of: 11/14/24 Rapid response was called at 1202 for acute tachypnea and tachycardia HR 140. Patient was seen and assessed at bedside. Rapid Response Room: 269 Time: 1202 Reason for Call: tachypnea and tachycardia 140s Patient presentation: Patient was distressed and in pain but cannot answer where. Blood pressure 162/80 heart rate 148 respiration rate 32 saturating 97% on FiO2 30%. Events: Patient had just received mucomyst and new pain regimen of morphine 10 liquid, IV morphine 2 mg q6h, and lorazepam 0.5 GT q8h. Metoprolol 2.5 mg IV was given to decrease rate, EKG unavailable to determine rhythm, but from rhythm strip likely sinus tachycardia. Midazolam 1 mg x1 and 2 mg x1 given to decrease patient discomfort, and address vent. asynchrony. Assessment: Likely uncontrolled pain on current regimen causing distress, increased BP, tachypnea and tachycardia New orders: Increase lorazepam from 0.5 mg to 1 mg TID. Continue IV morphine 2 mg q6h prn and liquid morphine 10 mg q6h. Continue mucomyst and albuterol q4h. Patient was discussed with the attending, Dr. Ann, and senior resident Dr. Coelho, PGY-2. Veronica Dixon, DO Internal Medicine PGY-1
[2024-11-14] MEDS: RINGERS LACTATED 1000 ML 1,000 ML 125 ML IV (19:35)
--- NOTE | 2024-11-14 20:08 | SUR.PHASEI ---
pt received to [facility]. trach intact to vent. vss. no ss pain or nausea. report from dr palmer and nurse laura.
--- NOTE | 2024-11-14 20:38 | SUR.PHASEI ---
pt transferred to room via bed. with vent intact to trach. report to мария chandler. vss. breathing even and unlabored.
[2024-11-14] MEDS: ATORVASTATIN CALCIUM 20 MG TABLET 40 MG GT (21:08)
[2024-11-15] VITALS (11 sets, daily range): BP systolic 116–148; BP diastolic 59–100; PULSE 71–108; RESP 16–22; TEMP 36.2–37.3; O2SAT 95–99; BMI 34.9
[2024-11-15] MEDS: ALBUTEROL/IPRATROPIUM (Duoneb) RT SOL 3 ML NEBU INH ×4 (03:25→13:58)
[2024-11-15] MEDS: CEFEPIME INJ 2 GM in SODIUM CHLORIDE 0.9% (Popper) 50 ML IV ×2 (05:10→13:49)
[2024-11-15] MEDS: HEPARIN SOD INJ 5000 UNIT/ML VIAL SC ×2 (05:10→13:49)
[2024-11-15] MEDS: MORPHINE SULF LIQD 10 MG/5 ML UDC PO (05:10)
[2024-11-15] MEDS: GABAPENTIN 300 MG CAPSULE 600 MG GT ×2 (05:10→13:48)
[2024-11-15 06:13] LABS: Alanine Aminotransferase < 7 U/L (10-49); Albumin, Serum 3.2 gm/dL (3.4-4.8); Albumin/Globulin Ratio 1.6 (1.2-2.2); Alkaline Phosphatase 62 U/L (46-116); Anion Gap 11 (7-16); Aspartate Amino Transferase 11 U/L (0-34); BUN/Creatinine Ratio 13 Ratio (12-20); Bilirubin,Total 0.4 mg/dL (0.3-1.2); Blood Urea Nitrogen < 5 mg/dL (9-23); Calcium 8.1 mg/dL (8.3-10.6); Calcium (Corrected) 8.7 mg/dL (8.5-10.1); Carbon Dioxide 25.9 mMol/L (20.0-31.0); Chloride 105 mMol/L (98-107); Creatinine (Component) 0.4 mg/dL (0.6-1.3); Estimated Creatinine Clearance 133.5 mL/min (>60); Globulin 2.0 gm/dL (2.3-3.5); Glucose 127 mg/dL (74-106); Magnesium 1.9 mg/dL (1.6-2.6); Osmolality,Calculated 282 (275-295); Potassium 3.3 mMol/L (3.4-5.1); Sodium 142 mMol/L (136-145); Total Protein 5.2 gm/dL (5.7-8.2); eGFR > 60 See Note
[2024-11-15] MEDS: Magnesium Sulfate 2 GM Ivpb 2 GM/50 ML BAG IV (10:09)
[2024-11-15] MEDS: MORPHINE SULF LIQD 10 MG/5 ML UDC GT (10:09)
[2024-11-15] MEDS: ASPIRIN 81 MG CHEW GT (10:12)
[2024-11-15] MEDS: MG HYD/AL HYD/SIME (Maalox Reg) SUSP 30 ML UDC GT ×2 (10:12→13:49)
[2024-11-15] MEDS: DULoxetine HCL 30 MG CAPSULE GT (10:12)
[2024-11-15] MEDS: SENNOSIDES SYRUP 8.8 MG/5 ML UDC GT (10:12)
[2024-11-15] MEDS: DOCUSATE SOD LIQD 100 MG/10 ML UDC GT (10:12)
[2024-11-15] MEDS: POLYETHYLENE GLYCOL 17 GM PACKET GT (10:13)
--- NOTE | 2024-11-15 10:23 | ESDS_ITS ---
<Statement entered by Michelle Ann MD - 11/19/24 14:37> I reviewed above note and agree with findings and plans. I have also personally examined the patient with medicine team and went over assessment and plan with medical team including sourcing intern and resident physician. <Statement entered by Katina Coelho MD - 11/15/24 18:49> Patient was seen and examined by me personally. I have reviewed the below documentation by the team resident and agree with its findings. Discharge plan was discussed with the attending, Dr. Ann. Ms. Cohen is a 69-year-old female with past medical history as below admitted to [facility] intensive care unit for septic shock, was started on low-dose Levophed was eventually weaned off with underlying source being urinary tract infection and pneumonia. Patient was started on IV antibiotics did have evidence of acute on chronic hypoxic respiratory failure, was eventually weaned off to baseline vent settings, had copious amount of secretions for which she was given chest physiotherapy Mucomyst and DuoNebs, otherwise there was also suspicion of pancreatitis however lipase minimally elevated and patient unable to endorse pain due to underlying mentation, did receive extensive IV fluid resuscitation. Patient eventually underwent EGD which showed gastritis and colonoscopy was unremarkable for the hospital course. Patient was signed off to Dr. Yogesh Ball inspector government property at subacute he was updated on the hospital course, further plan to discharge patient back to subacute patient responded well to hospital treatment, will be discharged on Levaquin and new anxiety regimen. We will advise a good bowel regimen, tube feeds at goal on discharge. Katina Coelho MD Internal Medicine, PGY-2 Planned Discharge Date 11/15/24 DS: Providers Provider Date of admission: 11/10/24 20:32 Primary care physician: Physician No Primary/Family Admitting Provider: Wilfredo Lee MD Attending Provider on Admission: Angeles Stone DO Consults: 11/11/24 16:22 Referral Wound Care Routine Comment: 11/12/24 14:37 Consult to Gastroenterology Routine Comment: EGD and colonoscopy Consulting Provider: Lizzie Toure Attending Provider on DC: Michelle Ann MD Discharging Provider: RESIDENT Dean Anticipated date of discharge: 11/15/24 DS: Diagnosis Problem List Completed Was Problem List Reviewed/Reconciled?: Yes Hospital Course Hospital Course Hospital course: Reason for hospitalization:?Sepsis 2/2 UTI Summary: This patient is a 69-year-old female with a 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 Patient was admitted to ICU for management of septic shock secondary to UTI versus ventilator associated pneumonia. Patient was started on cefepime with blood, urine, and sputum cultures drawn. Patient was downgraded on 11/11 after stabilization of blood pressure. Urine culture grew Klebsiella pneumonia, sputum culture grew Klebsiella pneumonia and Pseudomonas aeruginosa, and blood cultures showed no growth after 48 hours. Patient had complaints of abdominal pain with underlying suspicion for pancreatitis, GI was consulted for significant downtrending hemoglobin. EGD showed gastritis and colonoscopy showed 2+ internal hemorrhoids and diverticulosis. On 11/15, the patient had stable vitals and stable labs without any new complaints. The patient is medically stable to discharge back to subacute, to which GI agrees. Will have the patient follow-up for right breast mass and complete 7-day course of antibiotics. Good bowel regimen was advised and tube feeds were at goal on discharge. Discharge Recommendations: -Complete treatment for your Infection with Levofloxacin, avoid other QT prolonging drugs. -We have changed Protonix to twice daily, continue for 30 days. -Recommend aggressive bowel regimen to manage constipation -We have changed anxiety regimen to 1mg TID as needed. -Follow up with PCP in 1 week, optimize regimen as needed -Return to ED as needed if symptoms worsen. If you don't have a PCP, you can make an appointment at the [facility]: [address] [place] [address] Hospital Diagnoses: #Acute on chronic respiratory failure, mechanically ventilated on trach collar #Klebsiella and Pseudomonas pneumonia #Klebsiella UTI #Septic shock, resolved #Locked-in syndrome #History of multiple CVAs #Acute on chronic abdominal pain #Gastritis #Internal hemorrhoids #Diverticulosis #Primary hypertension #Insulin-dependent type 2 diabetes mellitus #Prolonged QTc #Hypomagnesemia #Anxiety #Depression #Breast mass Patient plan of care was discussed with the senior resident Dr. Moraes (PGY-2) and attending physician Dr. Ann. Wali Mccall, PGY1 Status at Discharge Overall status at discharge: patient is back to baseline Time Spent with Patient Time attestation: Total time spent providing and/or coordinating discharge services: Time spent: Greater than 30 minutes Exam Vital Signs Temp Pulse Resp BP Pulse Ox O2 Del Method FiO2 97.1 F 81 18 141/71 H 86 L Mechanical Ventilation 30 11/15/24 04:00 11/15/24 07:58 11/15/24 07:58 11/15/24 04:00 11/15/24 07:58 11/15/24 04:00 11/15/24 07:58 Narrative Exam GENERAL: AOx3, no acute distress, trach tube in place on mechanical ventilator HEENT: NC/AT, mucous membranes moist, bilateral sclera anicteric CARDIOVASCULAR: regular rate and rhythm, S1/S2 present, no murmurs appreciated PULMONARY: clear to auscultation bilaterally, bronchial breath sounds ABDOMINAL: soft, non-distended, no rebound/guarding, bowel sounds present, ++ epigastric tenderness EXTREMITIES: no peripheral edema SKIN: warm and dry, intact, no rashes NEURO: alert, following commands, 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 Discharge Plan Plan Patient Disposition: Xfer Skilled Nsg Fac (SNF) Patient condition on transfer: Stable Prescriptions/Referrals Prescriptions/Med Rec: New levofloxacin 750 mg tablet 750 mg PO QDAY 7 Days Qty: 7 0RF Continued bisacodyl [Dulcolax (bisacodyl)] 10 mg suppository 10 mg SD PRN PRN (Reason: No BM Per Bowel Management Protocol) 365 Days 0RF Rx Instructions: Administer as needed on 6th shift, if MOM ineffective. polyethylene glycol 3350 17 gram powder in packet 17 g G-tube PRN PRN (Reason: No BM Per Bowel Management Protocol) 365 Days 0RF Label Comments: Administer as needed if 2nd round bowel protocol ineffective. Rx Instructions: Mix with 4oz of water before giving. Hold tube feeding for 30 minutes after administration. Notify provider if no results from Miralax. magnesium hydroxide [Milk of Magnesia] 400 mg/5 mL suspension 30 ml G-tube PRN PRN (Reason: Constipation) 365 Days 0RF Rx Instructions: CONC: 400MG/5ML Fleet Enema 19-7 gram/118 mL enema 133 ml SD PRN PRN (Reason: No BM Per Bowel Management Protocol) 365 Days Qty: 133 0RF Label Comments: If Dulcolax is ineffective on 3rd day / 7th shift, give Fleets enema per Bowel Management Protocol. Notify MD if no results from Enema. insulin glargine-yfgn 100 unit/mL (3 mL) insulin pen 10 unit SCi DAILY@1800 30 Days Qty: 3 11RF Label Comments: Hold if BS <80 Rx Instructions: Hold if BS <80 acetaminophen 325 mg tablet 650 mg G-tube Q6HR PRN (Reason: Pain 1-6 (Mild-Mod) 30 Days 0RF Label Comments: Give 2 tabs of 325mg PGT Q6HR PRN. Do not exceed 3gm from all sources. atorvastatin 40 mg tablet 40 mg G-tube HS 79 Days Qty: 80 0RF aspirin 81 mg tablet,chewable 81 mg G-tube QDAY 79 Days Qty: 79 0RF duloxetine 30 mg capsule,delayed release(DR/EC) 30 mg G-tube QDAY 78 Days Qty: 79 0RF Label Comments: AMB feeling lonely, sad losartan 100 mg tablet 100 mg G-tube QDAY 78 Days Qty: 79 0RF Label Comments: hold if SBP <110 metformin 500 mg tablet 1,000 mg G-tube BID 79 Days Qty: 160 0RF Label Comments: BBW gabapentin 300 mg capsule 600 mg G-tube TID 366 Days Qty: 734 0RF Fish Oil 500 Mg Capsule 500 mg G-tube BID 395 Days 0RF simethicone 80 mg tablet,chewable 80 mg G-tube Q6HR PRN (Reason: Gas) 47 Days 0RF Trulicity 3 mg/0.5 mL pen injector 3 mg SCi WE 30 Days Qty: 2.5 12RF Label Comments: subcutaneously every Sunday at 1400 Non Formulary Medication 15 ea G-tube BID Qty: 30 0RF Label Comments: MEDICATION NOT ON FORMULARY: Morphine Sulfate 100mg/5ml (concentration) DRUG NAME HERE: Morphine Sulfate DIRECTIONS FOR USE HERE: Morphine Sulfate 15mg/0.75ml Rx Instructions: Give 15mg/0.75ml insulin glargine-yfgn 100 unit/mL (3 mL) insulin pen 10 unit SCi DAILY@0600 30 Days Qty: 3 11RF Label Comments: Hold if BS <80 acetaminophen 325 mg tablet 650 mg G-tube Q4HR PRN (Reason: Fever > 100.4) 7 Days Qty: 30 0RF Label Comments: Do not exceed 3gm of Tylenol from all sources. in 24 hours. Rx Instructions: Give 2 tabs of 325mg (650mg) every 4 hours PRN for fever. x7 days re-eval Changed lorazepam 0.5 mg tablet 1 mg G-tube Q8H PRN (Reason: anxiety) 365 Days 0RF Patient Comments: AMB anxiousness alum-mag hydroxide-simeth [Deidra-Lanta] 200-200-20 mg/5 mL suspension 30 ml G-tube QID 49 Days 0RF pantoprazole [address] For Susp In Packet 40 mg G-tube BID 30 Days Qty: 0 0RF Discontinued lorazepam 0.5 mg tablet 0.5 mg G-tube Q8H PRN (Reason: anxiety) 365 Days 0RF Label Comments: AMB anxiousness alum-mag hydroxide-simeth [Deidra-Lanta] 200-200-20 mg/5 mL suspension 30 ml G-tube QID PRN (Reason: Upset Stomach/Indigestion) 49 Days 0RF No Action pantoprazole [address] for susp in packet 40 mg G-tube BID 30 Days 0RF levofloxacin 500 mg tablet 750 mg G-tube QDAY 7 Days Qty: 11 0RF Referrals: No Primary/Family,Physician [Primary Care Provider] - Yogesh Ball MD [Physician] - Patient/Caregiver Discharge Instructions Discharge Activity: other Other Discharge Activity Instructions:: -Complete treatment for your Infection with Levofloxacin, avoid other QT prolonging drugs. -We have changed Protonix to twice daily, continue for 30 days. -Recommend aggressive bowel regimen to manage constipation -We have changed anxiety regimen to 1mg TID as needed. -Follow up with PCP in 1 week, optimize regimen as needed -Return to ED as needed if symptoms worsen. Education Materials: What Is Pneumonia?, Treating Pneumonia, Treating Anxiety Disorders ... Print Language: [place]ian Stand Alone Forms: Nessa Award Info., Patient Portal Info Letter Discharge Order Discharge Orders: Discharge (Routine); Ordered 11/15/24 Ordered By: Katina Coelho Quality Discharge Quality Measures VTE prophylaxis
--- NOTE | 2024-11-15 14:43 | PC.SS ---
[id number] spoke with Ludivina Assigned RN for this pt and she advised that she already gave report to the subacute RN. RN Ludivina will contact RT for pt to be taken down to subacute as pt is already d/c. Dr. Stafford is aware, as per afternoon rounding.
--- NOTE | 2024-11-15 16:19 | ESPR_ITS ---
Documentation for date of: 11/15/24 Subjective Subjective Interval history: Agree with the discharge planning downtrending hemoglobin hematocrit at 8.6 and 26.2 Patient being sent back to [facility] Colonoscopy showed 2+ internal hemorrhoids diverticulosis colon Upper endoscopy showed gastritis No signs of any active bleeding Exam Vital Signs Temp Pulse Resp BP Pulse Ox O2 Del Method FiO2 97.5 F 106 H 16 148/75 H 97 Mechanical Ventilation 40 11/15/24 15:00 11/15/24 15:00 11/15/24 15:00 11/15/24 15:00 11/15/24 15:00 11/15/24 15:00 11/15/24 15:00 Objective Labs 11/14/24 05:33 11/15/24 05:04 Labs: Laboratory Results - last 24 hr 11/15/24 05:04 Sodium 142 Potassium 3.3 L Chloride 105 Carbon Dioxide 25.9 Anion Gap 11 BUN < 5 L Creatinine 0.4 L Estim Creat Clear Calc 133.5 eGFR > 60 BUN/Creatinine Ratio 13 Glucose 127 H Calculated Osmolality 282 Calcium 8.1 L Corrected Calcium 8.7 Magnesium 1.9 Total Bilirubin 0.4 AST 11 ALT < 7 L Alkaline Phosphatase 62 Total Protein 5.2 L Albumin 3.2 L Globulin 2.0 L Albumin/Globulin Ratio 1.6 Impressions Impression: Stool impaction status post GoLytely 2+ internal hemorrhoids Diverticulosis left colon Gastritis Follow-up at the [facility] with a CBC ABG Interpretation ABG results: 11/11/24 04:22 ABG pH 7.46 H ABG pCO2 43 ABG pO2 78 L ABG HCO3 30 H ABG O2 Saturation 97 ABG Base Excess 6 H Assessment & Plan A&P Narrative 69-year female admitted with fever bilateral pneumonia CT scan of the abdomen pelvis without contrast shows mild pancreatitis lipase level is normal right breast mass this patient has had multiple CVAs and is nonverbal Plan Fiberoptic esophagogastroduodenoscopy with possible biopsy possible therapeutic intervention under intravenous moderate sedation If negative we will schedule the patient for a fiberoptic colonoscopy prior to discharge Other medical problems include CVA and patient is nonverbal Right breast mass Bibasilar pneumonia CT scan normality of mild pancreatitis with a normal lipase Thank you very much for the opportunity to participate in care of this patient Time Spent With Patient Time: Total time spent is greater than 50% in coordination of care (as documented) at patient's floor/unit and/or counseling patient:
== END 2024-11-15 15:15 | disposition short-term general hospital (02) | DRG 871 ==
LOC: SERX 18:08 → SERHOLD 20:34 → S2SX 23:07 → S2NX 11-11 11:20
PROVIDERS: Specialist; Student in an Organized Health Care Education/Training Program; Admitting Provider Student in an Organized Health Care Education/Training Program; Emergency Provider Emergency Medicine; Visit Provider Internal Medicine
PROC: 0DB78ZX Excision of Stomach, Pylorus, Via Natural or Artificial Opening Endoscopic, Diagnostic (ICD-10-PCS; CPT 43239; principal; 2024-11-13 19:30)
PROC: 0DJD8ZZ Inspection of Lower Intestinal Tract, Via Natural or Artificial Opening Endoscopic (ICD-10-PCS; CPT 45378; principal; 2024-11-14 16:30)
DX: A41.9 Sepsis, unspecified organism (principal); G83.5 Locked-in state; R65.21 Severe sepsis with septic shock; J15.1 Pneumonia due to Pseudomonas; J96.21 Acute and chronic respiratory failure with hypoxia; K85.90 Acute pancreatitis without necrosis or infection, unspecified; J95.851 Ventilator associated pneumonia; N39.0 Urinary tract infection, site not specified; J96.10 Chronic respiratory failure, unspecified whether with hypoxia or hypercapnia; E87.4 Mixed disorder of acid-base balance; Z99.11 Dependence on respirator [ventilator] status; Z93.1 Gastrostomy status; E11.9 Type 2 diabetes mellitus without complications; I25.2 Old myocardial infarction; I10 Essential (primary) hypertension; Y84.8 Other medical procedures as the cause of abnormal reaction of the patient, or of later complication, without mention of misadventure at the time of the procedure; Y95 Nosocomial condition; D50.0 Iron deficiency anemia secondary to blood loss (chronic); G89.29 Other chronic pain; R94.31 Abnormal electrocardiogram [ECG] [EKG]; E83.42 Hypomagnesemia; F32.A Depression, unspecified; F41.9 Anxiety disorder, unspecified; Z88.5 Allergy status to narcotic agent; B96.1 Klebsiella pneumoniae [K. pneumoniae] as the cause of diseases classified elsewhere; Z93.0 Tracheostomy status; K57.30 Diverticulosis of large intestine without perforation or abscess without bleeding; K29.70 Gastritis, unspecified, without bleeding; K64.8 Other hemorrhoids; Z79.4 Long term (current) use of insulin; N63.10 Unspecified lump in the right breast, unspecified quadrant; Z74.01 Bed confinement status; K56.41 Fecal impaction; Z79.82 Long term (current) use of aspirin; Z79.899 Other long term (current) drug therapy; Z86.73 Personal history of transient ischemic attack (TIA), and cerebral infarction without residual deficits
CPT/HCPCS: 36415; 36600; 71045; 74176; 80048; 80053; 80061; 80202; 81001; 82150; 82803; 83036; 83605; 83615; 83690; 83735; 83880; 84100; 84145; 84484; 85014; 85018; 85025; 85610; 85730; 86850; 86900; 86901; 87040; 87077; 87081; 87086; 87186; 87205; 87811; 93005; 93971; 94003; 94640; 94667; 96361; 96365; 96366; 96375; 99284; A4649; A9270; J0131; J0692; J1644; J2250; J2270; J2405; J2470; J2543; J2704; J3010; J3370; J3373; J3475; J3490; J7050; J7120; J7999